=== PATIENT | male | born 1965 | race Caucasian/White ===

== ENCOUNTER 2023-09-13 16:04 | Outpatient (CLI) | payer MEDICARE, MEDICAID, SELFPAY ==
[2023-09-13 15:04] LABS: ETHANOL BLOOD < 3.0 mg/dL (<10)
--- OUTSIDE RECORDS SUMMARY | 2023-09-13 16:10 | XMS_ITS | Continuity of Care Document ---
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 Name Role Phone Marcelo Brar Primary Care Physician Encounter [facility] Date(s): 06/21/23 - 06/21/[address] [phone] Discharge Disposition: Home or Self Care Attending Physician: Marcelo Brar MD Admitting Physician: Marcelo Brar MD Referring Physician: Marcelo Brar MD Allergies, Adverse Reactions, Alerts No Known Allergies Assessment and Plan Future Scheduled Tests Laboratory* Hemoglobin A1c 06/28/22 Immunizations Given and Recorded Vaccine Date Status Refusal Reason tetanus-diphth toxoids (Td) adult/adol 1 06/22/21 Recorded tetanus-diphth toxoids (Td) adult/adol 02/23/02 Re corded influenza virus vaccine, live 2 03/24/20 Recorded influenza virus vaccine, live 01/03/17 Recorded influenza virus vaccine, inactivated 01/05/16 Chris rded influenza virus vaccine, inactivated 02/16/15 Chris rded influenza virus vaccine, inactivated 01/26/14 Chris rded influenza virus vaccine, inactivated 12/11/11 Chris rded influenza virus vaccine, inactivated 11/10/10 Chris rded influenza virus vaccine, inactivated 05/04/10 Hcris rded influenza virus vaccine, inactivated 04/20/09 Chris rded pneumococcal 23-polyvalent vaccine 02/16/15 Record ed tetanus/diphth/pertuss (Tdap) adult/adol 11/10/10 Recorded Novel [id number], all formulation 04/20/09 Recorded 1Result Comment: tolerated well 2Result Comment: pt tolerated well Medications Albuterol (Eqv-ProAir HFA) 90 mcg/inh inhalation aerosol 2 puffs, Inhale, every 4 hr, PRN other (see comment), as needed Start Date: 09/01/21 Status: Ordered ARIPiprazole 10 mg oral tablet 10 mg = 1 tab, Oral, Daily, for 28 days Start Date: 08/30/21 Status: Ordered aspirin 81 mg oral tablet, chewable 1 tab, Oral, Daily, # 90 tab, 3 Refill(s), Pharmacy: [facility], 170, cm, 10/06/22 2:21:00 EDT, Height/Length Dosing, 116.2, kg, 10/06/22 2:21:00 EDT, Weight Dosing Start Date: 02/13/23 Status: Ordered busPIRone 15 mg oral tablet 15 mg = 1 tab, Oral, Daily, for 28 days Start Date: 08/30/21 Status: Ordered compression socks compression socks, To be worn daily for edema, Supply, See instructions, # 1 EA, 0 Refill(s) Start Date: 10/18/21 Status: Ordered Compression stockings Compression stockings, use stockings bilaterally daily, Supply, See instructions, # 1 EA, 0 Refill(s), Pharmacy: [facility] Start Date: 10/18/21 Status: Ordered Diabetic shoes Diabetic shoes, Patient needs to be fitted and have diabetic shoes ordered, Supply, See instructions, # 1 EA, 0 Refill(s) Start Date: 11/11/21 Status: Ordered Farxiga 5 mg oral tablet 1 tab, Oral, Daily, # 28 tab, 3 Refill(s), Pharmacy: [facility] [id number], 170, cm, 10/06/22 2:21:00 EDT, Height/Length Dosing, 116.2, kg, 10/06/22 2:21:00 EDT, Weight Dosing Start Date: 04/02/23 Status: Ordered fluticasone 50 mcg/inh nasal spray 2 sprays, Nasal, every morning, # 16 g, 5 Refill(s), Pharmacy: [facility], 170, cm, 08/22/21 15:48:00 EDT, Height/Length Dosing, 118, kg, 08/22/21 15:48:00 EDT, Weight Dosing Start Date: 09/09/21 Status: Ordered furosemide 40 mg oral tablet 80 mg = 2 tab, Oral, every morning, # 180 tab, 3 Refill(s), Pharmacy: [facility], 170, cm, 10/06/22 2:21:00 EDT, Height/Length Dosing, 116.2, kg, 10/06/22 2:21:00 EDT, Weight Dosing Start Date: 04/02/23 Status: Ordered Glucometer Glucometer, test sugars up to three times daily. E11.9 What insurance will cover, Supply, See instructions, # 1 EA, 0 Refill(s), Pharmacy: [facility] Start Date: 04/27/22 Status: Ordered glucomter glucomter, E11.9 uncontrolled. check BS once per day, Supply, See instructions, # 1 EA, 0 Refill(s), Pharmacy: [facility] Start Date: 04/26/22 Status: Ordered insulin glargine 100 units/mL subcutaneous solution See Instructions, Take 90 units daily subcu as directed for 30 days., # 30 mL, 11 Refill(s), [facility], 170, cm, 10/06/22 2:21:00 EDT, Height/Length Dosing, 116.2, kg, 10/06/22 2:21:00 EDT, Weight Dosing Start Date: 05/11/23 Status: Ordered Lancets Lancets, E11.9 Once per day, Supply, See instructions, # 100 EA, 3 Refill(s), Pharmacy: [facility] Start Date: 04/27/22 Status: Ordered Lantus 100 units/mL subcutaneous solution 30 vials, 0 Refill(s), 0 Refill(s) Start Date: 06/20/23 Status: Ordered Levemir 100 units/mL subcutaneous solution 90 units =, Subcutaneous, Daily, # 30 mL, 0 Refill(s), [facility] 170, cm, 10/06/22 2:21:00 EDT, Height/Length Dosing, 116.2, kg, 10/06/22 2:21:00 EDT, Weight Dosing Start Date: 05/06/23 Status: Ordered losartan 50 mg oral tablet 50 mg = 1 tab, Oral, Daily, for 90 days, # 90 tab, 4 Refill(s), Pharmacy: [facility],170, cm, 10/06/22 2:21:00 EDT, Height/Length Dosing, 116.2, kg, 10/06/22 2:21:00 EDT, Weight Dosing Start Date: 02/06/23 Status: Ordered metFORMIN 1000 mg oral tablet 1,000 mg = 1 tab, Oral, BID, # 180 tab, 3 Refill(s), Pharmacy: [facility], 170, cm, 10/06/22 2:21:00 EDT, Height/Length Dosing, 116.2, kg, 10/06/22 2:21:00 EDT, Weight Dosing Start Date: 04/02/23 Status: Ordered ohm Allergy Relief 10 mg oral tablet 1 tab, Oral, Daily, # 28 tab, 3 Refill(s), Pharmacy: [facility] [address], 170, cm, 08/22/21 15:48:00 EDT, Height/Length Dosing, 118, kg, 08/22/21 15:48:00 EDT, Weight Dosing Start Date: 07/25/22 Status: Ordered OPTICHAMBER MIS TOMAS OPTICHAMBER MIS TOMAS Start Date: 09/01/21 Status: Ordered pen needles 32G 4mm pen needles 32G 4mm, Use with insulin pen daily, Supply, See instructions, # 1 EA, 4 Refill(s), Pharmacy: [facility] Start Date: 05/14/23 Status: Ordered Request diabetic shoes from [employer] Request diabetic shoes from [employer], Please eval and Tx: 57 y.o. man. Request diabetic shoes. Hx poor control T2DM. A1c 11.6 on 04/04/2022. Venous stasis ulcer inf to med [facility]at[facility] Onychomycosis all toenails. Loss protective sensation w/monofilament test., Supply, See instructions, # 1 EA, 0 Refill(s) Start Date: 11/16/22 Status: Ordered Request knee high compressions stockings 30-40 mmHg from [employer]. Request knee high compressions stockings 30-40 mmHg from [employer] Please eval and Tx: 57 y.o. man. Request knee high compression stockings 30-40 mmHg. Hx poor control T2DM. A1c 11.6 on 04/04/2022. Venous stasis ulcer inf to med malleolus bilat. PT consult at [facility] 11/20 Onychomycosis all toenails. Lossprotective sensation w/monofilament test., Supply, See instructions, # 1 EA, 0 Refill(s) Start Date: 11/16/22 Status: Ordered Test strips Test strips, to go with glucometer E11.9 pt tetsts once daily, Supply, See instructions, # 100 EA, 3 Refill(s), Pharmacy: [facility] Start Date: 04/27/22 Status: Ordered Trulicity Pen 1.5 mg/0.5 mL subcutaneous solution 1.5 mg = 0.5 mL, Subcutaneous, every week Start Date: 08/30/21 Status: Ordered ULTICARE INSULIN SYRINGE/ 1ML/30G SYN ULTICARE INSULIN SYRINGE/ 1ML/30G SYN Start Date: 08/30/21 Status: Ordered UtiCare Insulin Syringe 30GX5/15 1ML U[employer]Care Insulin Syringe 30GX5/15 1ML, See Instructions, use 1x daily, # 100 EA, 3 Refill(s), Pharmacy: [facility], dx E11.9, 170, cm, 08/22/21 15:48:00 EDT, Height/Length Dosing, 118, kg, 08/22/21 15:48:00 EDT, Weight Dosing Start Date: 05/22/22 Status: Ordered Problem List Condition Confirmation Course Effective Dates Status H ealth Status Informant Foot abscess Confirmed Active Alcohol abuse Confirmed Active Allergic rhinitis Confirmed Active Venous stasis ulcer of right ankle Confirmed Active Venous stasis ulcer of left ankle Confirmed Active Arteritis Confirmed Active Dystrophic nail Confirmed Active Generalized anxiety disorder Confirmed Active Hypertensive disorder Confirmed Active 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 Localized edema Confirmed Active 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 Nicotine dependence Confirmed Active Onychomycosis of multiple toenails with type 2 diabetes mellitus Confirmed Active Right arm pain Confirmed Active Puncture wound of skin Confirmed Active Right upper quadrant pain Confirmed Active Schizophrenia Confirmed Active Severe obesity Confirmed Active Tinea pedis Confirmed Active Diabetes mellitus, type II uncontrolled Confirmed Active non-pressure ulcer lower limb Confirmed Active Venous stasis Confirmed Active Results Laboratory List Name Date CBC w/ Diff 06/21/23 Comprehensive Metabolic Panel (CMP) 06/20 Hemoglobin A1c 06/21/23 Lipid Panel 06/21/23 .Morphology ([facility]) 06/21/23 Automated Diff 06/21/23 Most recent to oldest [Reference Range]: 1 WBC [5.0-10.0 x10^3/mcL] 8.6 x10^3/mcL (06/21/23 10:24 AM) RBC [4.6-6.0 x10^6/mcL] 4.9 x10^6/mcL (06/21/23 10:24 AM) Neutro Auto [40.0-75.0 %] 64.1 % (06/21/23 10:24 AM) Lymph Auto [20.0-50.0 %] 18.0 % *LOW* (06/21/23: AM) Twiggs Auto [2.0-15.0 %] 12.5 % (06/21/23 10:24 AM) Basophil Auto [0.0-1.0 %] 0.8 % (06/21/23 10:24 AM) BUN [7-18 mg/dL] 14 mg/dL (06/21/23 10:24 AM) Cholesterol Total [50-200 mg/dL] 144 mg/ dL (06/21/23 10:24 AM) LDL [0-130 mg/dL] 77 mg/dL (06/21/23 10:24 AM) Glucose Level [74-106 mg/dL] 124 mg/dL *HI* (06/21/23 10:24 AM) Potassium Level [3.5-5.1 mmol/L] 3.8 mmo l/L (06/21/23 10:24 AM) MCV [80.0-96.0 fL] 73.1 fL *LOW* (06/21/23 10:24 AM) RBC Morph Abnormal (06/21/23 10:24 AM) HDL [40-60 mg/dL] 52 mg/dL (06/21/23 10:24 AM) AST [15-37 unit/L] 14 unit/L *LOW* (06/21/23 10:24 AM) ALT [16-63 unit/L] 23 unit/L (06/21/23 10:24 AM) MCHC [31.0-35.0 g/dL] 28.8 g/dL *LOW* (06/21/23 10:24 AM) Sodium Level [136-145 mmol/L] 138 mmol/L (06/21/23 10:24 AM) Hct [41.0-51.0 %] 36.1 % *LOW* (06/21/23 10:24 AM) Microcyte Small (06/21/23 10:24 AM) Hypochromia Small (06/21/23 10:24 AM) Triglycerides [0-150 mg/dL] 76 mg/dL (06/21/23 10:24 AM) Calcium Level [8.5-10.1 mg/dL] 8.9 mg/dL (06/21/23 10:24 AM) Albumin Level [3.4-5.0 g/dL] 3.4 g/dL (06/21/23 10:24 AM) Protein Total [6.4-8.2 g/dL] 7.2 g/dL (06/21/23 10:24 AM) MCH [26.0-32.0 pg] 21.1 pg *LOW* (06/21/23 10:24 AM) Neutro Absolute 5.5 x10^3/mcL *NA* (06/21/23 10:24 AM) Bilirubin Total [0.2-1.0 mg/dL] 0.3 mg/d L (06/21/23 10:24 AM) Hgb [14.0-18.0 g/dL] 10.4 g/dL *LOW* (06/21/23 10:24 AM) Alk Phos [46-146 unit/L] 91 unit/L (06/21/23 10:24 AM) Platelets [130-450 x10^3/mcL] 321 x10^3/ mcL (06/21/23 10:24 AM) CO2 [21-32 mmol/L] 30 mmol/L (06/21/23 10:24 AM) eGFR Non-AA [>=60] 100 (06/21/23 10:24 AM) eGFR AA [>=60] 100 (06/21/23 10:24 AM) Hemoglobin A1c [4.0-5.6 %] 7.6 % 1 *HI* (06/21/23 10:24 AM) Chloride Level [98-107 mmol/L] 101 mmol/ L (06/21/23 10:24 AM) RDW-CV [11.5-14.5 %] 16.9 % *HI* (06/21/23 10:24 AM) Imm Gran Auto [0.0-0.9 %] 0.5 % (06/21/23 10:24 AM) Slide Review Morph Only (06/21/23 10:24 AM) Anisocyte Small (06/21/23 10:24 AM) Creatinine Level [0.70-1.30 mg/dL] 0.85 mg/dL (06/21/23 10:24 AM) Eos, Auto [1.0-6.0 %] 4.1 % (06/21/23 10:24 AM) 1Interpretive Data: New test method effective 04-24-23. Establishment of new HA1c baseline is recommended. The following A1c interpretive data reflect the 2017 [place] [employer] (ADA) guidelinesand will be reported with each A1c result: Normal: <5.7% Prediabetes: 5.7 - 6.4% Diagnostic for diabetes (if confirmed): ???6.5% Social History Social History Type Response Tobacco Current everyday tob acco user Tobacco Use:. 1.5 packs a day per day. Sex Male Patient Care team information Care Team Personnel Name: Marcelo Brar MD Position: Physician Member Role: Primary Care Physician Address: Address: [address] [place] [address] [place], [place] [address] Name: [facility] Position: PowerChart View Only Member Role: Informed Provider Address: Address: [place] [facility] [address] [address] [place] Care Team Related Persons Name: ESTELA DIXON
--- OUTSIDE RECORDS SUMMARY | 2023-09-13 16:10 | XMS_ITS | Continuity of Care Document ---
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 Clarifier Operator Helper Name Role Phone Roc Porter Primary Care Physician Encounter [facility] Date(s): 11/16/22 - 11/16/[address] [address] Discharge Disposition: Home or Self Care Attending Physician: Roc Porter PA-C Admitting Physician: Roc Porter PA-C Referring Physician: Roc Porter PA-C Allergies, Adverse Reactions, Alerts No Known Allergies Assessment and Plan Future Appointments Future Scheduled Tests Laboratory* Hemoglobin A1c 11/23/21 * Hemoglobin A1c 06/28/22 Immunizations Given and Recorded [...] Chris rded influenza virus vaccine, inactivated 05/04/10 Chris rded influenza virus vaccine, inactivated 04/20/09 Chris rded pneumococcal 23-polyvalent vaccine 02/16/15 Record ed tetanus/diphth/pertuss (Tdap) adult/adol 11/10/10 Recorded Novel [id number], all formulation 04/20/09 Recorded 1Result Comment: tolerated [...] tablet, chewable 1 tab, Oral, Daily, # 28 EA, 11 Refill(s), Pharmacy: [facility] [address], 170, cm, 10/06/22 2:21:00 EDT, Height/Length Dosing, 116.2, kg, 10/06/22 2:21:00 EDT, Weight Dosing Start Date: 10/17/22 Status: Ordered busPIRone 15 mg oral tablet 15 mg = 1 tab, Oral, Daily, for 28 days Start Date: 08/30/21 Status: Ordered compression socks compression socks, To be worn daily for edema, Supply, See instructions, # 1 EA, 0 Refill(s) Start Date: 10/18/21 Status: Ordered Compression stockings Compression stockings, use stockings bilaterally daily, Supply, See instructions, # 1 EA, 0 Refill(s), Pharmacy: [facility] Start Date: 10/18/21 Status: Ordered Diabetic shoes Diabetic shoes, Patient needs to be fitted and have diabetic shoes ordered, Supply, See instructions, # 1 EA, 0 Refill(s) Start Date: 11/11/21 Status: Ordered Farxiga 5 mg oral tablet 5 mg = 1 tab, Oral, Daily, May substitute per formulary, # 90 tab, 2 Refill(s), Pharmacy: [facility], 170, cm, 08/22/21 15:48:00 EDT, Height/Length Dosing, 118, kg, 08/22/21 15:48:00 EDT, Weight Dosing Start Date: 04/26/22 Status: Ordered fluticasone 50 mcg/inh nasal spray 2 sprays, Nasal, every morning, # 16 g, 5 Refill(s), Pharmacy: [facility], 170, cm, 08/22/21 15:48:00 EDT, Height/Length Dosing, 118, kg, 08/22/21 15:48:00 EDT, Weight Dosing Start Date: 09/09/21 Status: Ordered furosemide 40 mg oral tablet 80 mg = 2 tab, Oral, every morning, # 180 tab, 3 Refill(s), Pharmacy: [facility], 170, cm, 08/22/21 15:48:00 EDT, Height/Length Dosing, 118, kg, 08/22/21 15:48:00 EDT, Weight Dosing Start Date: 05/04/22 Status: Ordered Glucometer Glucometer, test sugars up to three times daily. E11.9 What insurance will cover, Supply, See instructions, # 1 EA, 0 Refill(s), Pharmacy: [id number] Start Date: 04/27/22 Status: Ordered glucomter glucomter, E11.9 uncontrolled. check BS once per day, Supply, See instructions, # 1 EA, 0 Refill(s), Pharmacy: [facility] Start Date: 04/26/22 Status: Ordered Lancets Lancets, E11.9 Once per day, Supply, See instructions, # 100 EA, 3 Refill(s), Pharmacy: [id number] Start Date: 04/27/22 Status: Ordered Levemir 100 units/mL subcutaneous solution 90 units =, Subcutaneous, Daily, # 30 mL, 3 Refill(s), Pharmacy: [id number], 170, cm, 08/22/21 15:48:00 EDT, Height/Length Dosing, 118, kg, 08/22/21 15:48:00 EDT, Weight Dosing Start Date: 06/09/22 Status: Ordered losartan 50 mg oral tablet 50 mg = 1 tab, Oral, Daily, for 90 days, # 90 tab, 4 Refill(s), Pharmacy: [facility], cm, 08/22/21 15:48:00 EDT, Height/Length Dosing, 118, kg, 08/22/21 15:48:00 EDT, Weight Dosing Start Date: 01/19/22 Status: Ordered metFORMIN 1000 mg oral tablet 1,000 mg = 1 tab, Oral, BID, # 180 tab, 3 Refill(s), Pharmacy: [facility], 170, cm, 08/22/21 15:48:00 EDT, Height/Length Dosing, 118, kg, 08/22/21 15:48:00 EDT, Weight Dosing Start Date: 05/04/22 Status: Ordered ohm Allergy Relief 10 mg oral tablet 1 tab, Oral, Daily, # 28 tab, 3 Refill(s), Pharmacy: [facility] 170, cm, 08/22/21 15:48:00 EDT, Height/Length Dosing, 118, kg, 08/22/21 15:48:00 EDT, Weight Dosing Start Date: 07/25/22 Status: Ordered OPTICHAMBER MIS TOMAS OPTICHAMBER MIS TOMAS Start Date: 09/01/21 Status: Ordered Request diabetic shoes from [employer] Request diabetic shoes from [employer], Please eval and Tx: 57 y.o. man. Request diabetic shoes. Hx poor control T2DM. A1c 11.6 on 04/04/2022. Venous stasis ulcer inf to [facility] Onychomycosis all toenails. Loss protective sensation w/monofilament test., Supply, See instructions, # 1 EA, 0 Refill(s) Start Date: 11/16/22 Status: Ordered Request knee high compressions stockings 30-40 mmHg from [employer]. Request knee high compressions stockings 30-40 mmHg from [employer] Please eval and Tx: 57 y.o. man. Request knee high compression stockings 30-40 mmHg. Hx poor control T2DM. A1c 11.6 on 04/04/2022. Venous stasis ulcer inf to med malleolus bilat. [facility] Onychomycosis all toenails. Lossprotective sensation w/monofilament test., Supply, See instructions, # 1 EA, 0 Refill(s) Start Date: 11/16/22 Status: Ordered Test strips Test strips, to go with glucometer E11.9 pt tetsts once daily, Supply, See instructions, # 100 EA, 3 Refill(s), Pharmacy: [id number] Start Date: 04/27/22 Status: Ordered Trulicity Pen 1.5 mg/0.5 mL subcutaneous solution 1.5 mg = 0.5 mL, Subcutaneous, every week Start Date: 08/30/21 Status: Ordered ULTICARE INSULIN SYRINGE/ 1ML/30G SYN ULTICARE INSULIN SYRINGE/ 1ML/30G SYN Start Date: 08/30/21 Status: Ordered [employer]Care Insulin Syringe 30GX5/15 1ML [employer] Insulin Syringe 30GX5/15 1ML, See Instructions, use 1x daily, # 100 EA, 3 Refill(s), Pharmacy: [facility], dx E11.9, 170, cm, 08/22/21 15:48:00 EDT, [...] left ankle Confirmed Active Arteritis Confirmed Active Generalized anxiety disorder Confirmed Active [...] Active non-pressure ulcer lower limb Confirmed Active Social History Social History Type Response Tobacco Current everyday tob acco user Tobacco Use:. 1.5 packs a day per day. Sex Male Patient Care team information Care Team Personnel Name: Rafal Alvarez DO Position: Physician Member Role: Informed Provider Address: Address: [place] [facility] [address] Name: Roc Porter PA-C Position: Physician Member Role: Primary Care Physician Address: Address: [address] [place] [id number] Care Team Related Persons Name: ESTELA DIXON Address: Home
--- OUTSIDE RECORDS SUMMARY | 2023-09-13 16:11 | XMS_ITS ---
Author Name Unknown Address [address] [place] [phone] Phone Organization Unknown Address [address] [place] [phone] Phone Care Team Providers Care Instructor Kindergarten Name Role Phone AMAYA Keen Attending Unavailable ROSE Tesfaye Primary Unavailable Social History Type Status Start Date End Date Code Code Syst em Sex Male Hospital Discharge Instructions Should you have any questions prior to discharge, please contact a member of your healthcare team. If you have left the hospital and have any questions, please contact your primary care physician. Reason For Referral No Data Found Plan of Treatment No Data Found Encounters Encounter Diagnosis Start Date Code Code Sys tem 08/21/2023 [id number] SNOMED-CT Personal Care Team Section Performer Name Performer Role Active Date Inactive Da kinza
--- OUTSIDE RECORDS SUMMARY | 2023-09-13 16:11 | XMS_ITS ---
Author Name Unknown Address [address] [place] [phone] Phone Organization Unknown Address [address] [place] [phone] Phone Care Team Providers Care Web Producer Name Role Phone AMAYA Keen Attending Unavailable ROSE Tesfaye Primary Unavailable Results XR FOOT 3V LT* - Completed: 09/04/2023 11:21 LOINC: [place], [place] [address] [facility] PACS EXTENSION EDGER REPORT Patient Name: SHIRA REGALADO MRN: Sex: : Age: [id number] M [id number] Account: Accession: Admit: StayType: [id number] 09/04/2023 O Ordered: Order ID: Submitted: Ordering Provider: 09/04/2023 10:56 [id number] JOSELYN LYNCH Completed: Technologist: Resulted: 09/04/2023 11:13 SALLY 09/04/2023 19:10 FINAL REPORT EXAM: XR FOOT 3V LT* CLINICAL HISTORY: Reason for Extrem: Pain. TECHNIQUE: 2D digital imaging was performed. COMPARISON: No exams were available for comparison FINDINGS: 3 views No evidence of acute fracture or diastasis of the Lisfranc joint. Bone density normal. No osseous lesions. No erosions. Great toe metatarsophalangeal joint appears unremarkable. There is a small inferior calcaneal spur. Also small enthesophyte of the posterior calcaneus Achilles insertion. IMPRESSION: As above. DATA REPOSITORY: RADIATION DOSE DELIVERED: Electronically signed by: Deric Freitas Dictated: 09/04/2023 19:10 Social History Type Status Start Date End Date Code Code Syst em Sex Male Hospital Discharge Instructions Should you have any questions prior to discharge, please contact a member of your healthcare team. If you have left the hospital and have any questions, please contact your primary care physician. Reason For Referral No Data Found Plan of Treatment No Data Found Personal Care Team Section Performer Name Performer Role Active Date Inactive Da te
--- OUTSIDE RECORDS SUMMARY | 2023-09-13 16:11 | XMS_ITS | Continuity of Care Document ---
Author Name Unknown Organization [facility] Address [address] [place] [address] Care Team Providers Care Varying Exceptionalities Teacher Name Role Phone Marcelo Brar Primary Care Physician Encounter [facility] Date(s): 08/06/23 - 08/06/[address] [id number] Discharge Disposition: Home or Self Care Attending Physician: Calvin Mayfield DO Admitting Physician: Calvin Mayfield DO Allergies, Adverse Reactions, Alerts No Known Allergies Assessment and Plan Future Scheduled Tests Laboratory* Transferrin Serum [facility] 06/26/23 * Transferrin Serum [facility] 06/26/23 * Ferritin 06/26/23 * Ferritin 06/26/23 * Reticulocyte Count Automated 06/26/23 * Reticulocyte Count Automated 06/26/23 * Iron Level and TIBC 06/26/23 * Iron Level and TIBC 06/26/23 Immunizations Given and Recorded Vaccine Date Status [...] ed tetanus/diphth/pertuss (Tdap) adult/adol 11/10/10 Recorded Novel [id number], all formulation 04/20/09 Recorded 1Result Comment: tolerated [...] Daily, # 90 tab, 3 Refill(s), Pharmacy: [facility], 170, cm, 10/06/22 2:21:00 EDT, Height/Length Dosing, [...] instructions, # 1 EA, 0 Refill(s), Pharmacy: [facility] Start Date: 10/18/21 Status: Ordered Diabetic shoes Diabetic shoes, Patient needs to be fitted and have diabetic shoes ordered, Supply, See instructions, # 1 EA, 0 Refill(s) Start Date: 11/11/21 Status: Ordered Farxiga 5 mg oral tablet 1 tab, Oral, Daily, # 28 tab, 3 Refill(s), Pharmacy: [id number], 170, cm, 10/06/22 2:21:00 EDT, Height/Length Dosing, 112, kg, 06/20/23 13:51:00 EDT, Weight Dosing Start Date: 07/20/23 Status: Ordered fluticasone 50 mcg/inh nasal spray 2 sprays, Nasal, every morning, # 16 g, 5 Refill(s), Pharmacy: [facility], 170, cm, 08/22/21 15:48:00 EDT, Height/Length Dosing, 118, kg, 08/22/21 15:48:00 EDT, Weight Dosing Start Date: 09/09/21 Status: Ordered furosemide 40 mg oral tablet 80 mg = 2 tab, Oral, every morning, # 180 tab, 3 Refill(s), Pharmacy: [facility], 170, cm, 10/06/22 2:21:00 EDT, Height/Length Dosing, 116.2, kg, 10/06/22 2:21:00 EDT, Weight Dosing Start Date: 04/02/23 Status: Ordered Glucometer Glucometer, test sugars up to three times daily. E11.9 What insurance will cover, Supply, See instructions, # 1 EA, 0 Refill(s), Pharmacy: [facility] Start Date: 04/27/22 Status: Ordered glucomter glucomter, E11.9 uncontrolled. check BS once per day, Supply, See instructions, # 1 EA, 0 Refill(s), Pharmacy: [facility] Start Date: 04/26/22 Status: Ordered insulin glargine 100 units/mL subcutaneous solution See Instructions, Take 90 units daily subcu as directed for 30 days., # 30 mL, 11 Refill(s), Pharmacy: [facility], 170, cm, 10/06/22 2:21:00 EDT, Height/Length Dosing, 116.2, kg, 10/06/22 2:21:00 EDT, Weight Dosing Start Date: 05/11/23 Status: Ordered Lancets Lancets, E11.9 Once per day, Supply, See instructions, # 100 EA, 3 Refill(s), Pharmacy: [facility] Start Date: 04/27/22 Status: Ordered Levemir 100 units/mL subcutaneous solution 90 units =, Subcutaneous, Daily, # 30 mL, 0 Refill(s), Pharmacy: [facility] [id number], 170, cm, 10/06/22 2:21:00 EDT, Height/Length Dosing, 116.2, kg, 10/06/22 2:21:00 EDT, Weight Dosing Start Date: 05/06/23 Status: Ordered losartan 50 mg oral tablet 50 mg = 1 tab, Oral, Daily, for 90 days, # 90 tab, 4 Refill(s), Pharmacy: [facility],170, cm, 10/06/22 2:21:00 EDT, Height/Length Dosing, 116.2, kg, 10/06/22 2:21:00 EDT, Weight Dosing Start Date: 02/06/23 Status: Ordered metFORMIN 1000 mg oral tablet 1,000 mg = 1 tab, Oral, BID, # 180 tab, 3 Refill(s), Pharmacy: [facility], 170, cm, 10/06/22 2:21:00 EDT, Height/Length Dosing, 116.2, kg, 10/06/22 2:21:00 EDT, Weight Dosing Start Date: 04/02/23 Status: Ordered OPTICHAMBER MIS TOMAS OPTICHAMBER MIS TOMAS Start Date: 09/01/21 Status: Ordered pen needles 32G 4mm pen needles 32G 4mm, Use with insulin pen daily, Supply, See instructions, # 1 EA, 4 Refill(s), Pharmacy: [facility] Start Date: 05/14/23 Status: Ordered Request diabetic shoes from [employer] Request diabetic shoes from [employer], Please eval and Tx: 57 y.o. man. Request diabetic shoes. Hx poor control T2DM. A1c 11.6 on 04/04/2022. Venous stasis ulcer inf to [facility] Onych[facility] all toenails. Loss protective [...] to med malleolus bilat. [facility] Onychomycosis all toenails. Lossprotective sensation w/monofilament test., Supply, See instructions, # 1 EA, 0 Refill(s) Start Date: 11/16/22 Status: Ordered Test strips Test strips, to go with glucometer E11.9 pt tetsts once daily, Supply, See instructions, # 100 EA, 3 Refill(s), Pharmacy: [facility] Start Date: 04/27/22 Status: Ordered ULTICARE INSULIN SYRINGE/ 1ML/30G SYN ULTICARE INSULIN SYRINGE/ 1ML/30G SYN Start Date: 08/30/21 Status: Ordered UtiCare Insulin Syringe 30GX5/15 1ML UtiCare Insulin Syringe 30GX5/15 1ML, See Instructions, use 1x daily, # 100 EA, 3 Refill(s), Pharmacy: [facility], E11.9, 170, cm, 08/22/21 15:48:00 EDT, Height/Length Dosing, 118, kg, 08/22/21 15:48:00 EDT, Weight Dosing Start Date: 05/22/22 Status: Ordered Problem List Condition Confirmation Course Effective Dates Status H ealth Status Informant Foot abscess Confirmed Active Alcohol use disorder Confirmed Active Allergic rhinitis Confirmed Active Anemia Confirmed Active Generalized anxiety disorder Confirmed Active Hypertensive disorder Confirmed Active Localized edema Confirmed Active 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 1.5 packs a day per day. Sex Male Patient Care team information Care Team Personnel Name: Marcelo Brar MD Position: Physician Member Role: Primary Care Physician Address: Address: [address] [place] [address] [place] [address]- [facility] Position: PowerChart View Only Member Role: Informed Provider Address: Address: [place] [facility] [address] [address]- Care Team Related Persons Name: ESTELA DIXON
--- OUTSIDE RECORDS SUMMARY | 2023-09-13 16:11 | XMS_ITS | Continuity of Care Document ---
Author Name Unknown Organization [facility] Address [address] [place] [address] Care Team Providers Care Strategic Partnership Specialist Name Role Phone Roc Porter Primary Care Physician Encounter [place] Date(s): 11/16/22 - 11/16/[address] [address] Encounter Diagnosis Nicotine dependence(Discharge Diagnosis) - 11/16/22 Hypertensive disorder(Discharge Diagnosis) - 11/16/22 Diabetes mellitus, type II uncontrolled(Discharge Diagnosis) - 11/16/22 Prostate cancer screening(Discharge Diagnosis) - 11/16/22 Discharge Disposition: Home or Self Care Attending [...] ed tetanus/diphth/pertuss (Tdap) adult/adol 11/10/10 Recorded Novel [id number], all formulation 04/20/09 Recorded 1Result Comment: tolerated [...] Daily, # 28 EA, 11 Refill(s), Pharmacy: [facility] [id number], 170, cm, 10/06/22 2:21:00 EDT, Height/Length Dosing, [...] instructions, # 1 EA, 0 Refill(s), Pharmacy: [facility] Start Date: 10/18/21 Status: Ordered Diabetic shoes Diabetic shoes, Patient needs to be fitted and have diabetic shoes ordered, Supply, See instructions, # 1 EA, 0 Refill(s) Start Date: 11/11/21 Status: Ordered Farxiga 5 mg oral tablet 5 mg = 1 tab, Oral, Daily, May substitute per formulary, # 90 tab, 2 Refill(s), Pharmacy: [facility], 170, cm, 08/22/21 15:48:00 EDT, Height/Length Dosing, 118, kg, 08/22/21 15:48:00 EDT, Weight Dosing Start Date: 04/26/22 Status: Ordered fluticasone 50 mcg/inh nasal spray 2 sprays, Nasal, every morning, # 16 g, 5 Refill(s), Pharmacy: [facility], 170, cm, 08/22/21 15:48:00 EDT, Height/Length Dosing, 118, kg, 08/22/21 15:48:00 EDT, Weight Dosing Start Date: 09/09/21 Status: Ordered furosemide 40 mg oral tablet 80 mg = 2 tab, Oral, every morning, # 180 tab, 3 Refill(s), Pharmacy: [facility], 170, cm, 08/22/21 15:48:00 EDT, Height/Length Dosing, 118, kg, 08/22/21 15:48:00 EDT, Weight Dosing Start Date: 05/04/22 Status: Ordered Glucometer Glucometer, test sugars up to three times daily. E11.9 What insurance will cover, Supply, See instructions, # 1 EA, 0 Refill(s), Pharmacy: [facility] Start Date: 04/27/22 Status: Ordered glucomter glucomter, E11.9 uncontrolled. check BS once per day, Supply, See instructions, # 1 EA, 0 Refill(s), Pharmacy: [facility] Start Date: 04/26/22 Status: Ordered Lancets Lancets, E11.9 Once per day, Supply, See instructions, # 100 EA, 3 Refill(s), Pharmacy: [facility] Start Date: 04/27/22 Status: Ordered Levemir 100 units/mL subcutaneous solution 90 units =, Subcutaneous, Daily, # 30 mL, 3 Refill(s), [facility], [facility], cm, 08/22/21 15:48:00 EDT, Height/Length Dosing, 118, kg, 08/22/21 15:48:00 EDT, Weight Dosing Start Date: 06/09/22 Status: Ordered losartan 50 mg oral tablet 50 mg = 1 tab, Oral, Daily, for 90 days, # 90 tab, 4 Refill(s), Pharmacy: [facility],170, cm, 08/22/21 15:48:00 EDT, Height/Length Dosing, 118, kg, 08/22/21 15:48:00 EDT, Weight Dosing Start Date: 01/19/22 Status: Ordered metFORMIN 1000 mg oral tablet 1,000 mg = 1 tab, Oral, BID, # 180 tab, 3 Refill(s), Pharmacy: [facility], 170, cm, 08/22/21 15:48:00 EDT, Height/Length Dosing, 118, kg, 08/22/21 15:48:00 EDT, Weight Dosing Start Date: 05/04/22 Status: Ordered ohm Allergy Relief 10 mg oral tablet 1 tab, Oral, Daily, # 28 tab, 3 Refill(s), Pharmacy: [id number], 170, cm, 08/22/21 15:48:00 EDT, Height/Length Dosing, 118, kg, 08/22/21 15:48:00 EDT, Weight Dosing Start Date: 07/25/22 Status: Ordered OPTICHAMBER MIS TOMAS OPTICHAMBER MIS TOMAS Start Date: 09/01/21 Status: Ordered Request diabetic shoes from [employer] Request diabetic shoes from [employer], Please eval and Tx: 57 y.o. man. Request diabetic shoes. Hx poor control T2DM. A1c 11.6 on 04/04/2022. Venous stasis [facility]. Loss protective sensation [...] to med malleolus bilat. PT consult at [facility] 11/20 Onychomycosis all toenails. Lossprotective sensation w/monofilament test., Supply, See instructions, # 1 EA, 0 Refill(s) Start Date: 11/16/22 Status: Ordered Test strips Test strips, to go with glucometer E11.9 pt tetsts once daily, Supply, See instructions, # 100 EA, 3 Refill(s), Pharmacy: [facility] Start Date: 04/27/22 Status: Ordered Trulicity Pen 1.5 mg/0.5 mL subcutaneous solution 1.5 mg = 0.5 mL, Subcutaneous, every week Start Date: 08/30/21 Status: Ordered ULTICARE INSULIN SYRINGE/ 1ML/30G SYN ULTICARE INSULIN SYRINGE/ 1ML/30G SYN Start Date: 08/30/21 Status: Ordered UtiCare Insulin Syringe 30GX5/15 1ML UtiCare Insulin Syringe 30GX5/15 1ML, See Instructions, use 1x daily, # 100 EA, 3 Refill(s), Pharmacy: [facility], dx E11.9, 170, cm, 08/22/21 15:48:00 EDT, [...] Active non-pressure ulcer lower limb Confirmed Active Results Laboratory List Name Date Automated Diff 11/16/22 CBC w/ Diff 11/16/22 Comprehensive Metabolic Panel (CMP) 11/16 Hemoglobin A1c 11/16/22 Lipid Panel 11/16/22 PSA Screen 11/16/22 Urinalysis with Micro if Indicated and C ulture if Indicated 11/16/22 Most recent to oldest [Reference Range]: 1 WBC [5.0-10.0 x10^3/mcL] 9.3 x10^3/mcL (11/16/22 1:13 PM) RBC [4.6-6.0 x10^6/mcL] 5.9 x10^6/mcL (11/16/22 1:13 PM) Neutro Auto [40.0-75.0 %] 66.1 % (11/16/22 1:13 PM) Lymph Auto [20.0-50.0 %] 18.6 % *LOW* (11/16/22 1:13 PM) Holmes Auto [2.0-15.0 %] 11.2 % (11/16/22 1:13 PM) Basophil Auto [0.0-1.0 %] 0.9 % (11/16/22 1:13 PM) BUN [7-18 mg/dL] 10 mg/dL (11/16/22 1:13 PM) Cholesterol Total [50-200 mg/dL] 162 mg/ dL (11/16/22 1:13 PM) UA Color Pale Yellow (11/16/22 1:13 PM) LDL [0-130 mg/dL] 68 mg/dL (11/16/22 1:13 PM) Glucose Level [74-106 mg/dL] 215 mg/dL *HI* (11/16/22 1:13 PM) Potassium Level [3.5-5.1 mmol/L] 3.6 mmo l/L (11/16/22 1:13 PM) MCV [80.0-96.0 fL] 93.7 fL (11/16/22 1:13 PM) UA Urobilinogen Normal (11/16/22 1:13 PM) HDL [40-60 mg/dL] 43 mg/dL (11/16/22 1:13 PM) UA Bili [Negative] Negative (11/16/22 1:13 PM) UA Ketones Negative (11/16/22 1:13 PM) AST [15-37 unit/L] 15 unit/L (11/16/22 1:13 PM) ALT [16-63 unit/L] 17 unit/L (11/16/22 1:13 PM) MCHC [31.0-35.0 g/dL] 33.2 g/dL (11/16/22 1:13 PM) Sodium Level [136-145 mmol/L] 136 mmol/L (11/16/22 1:13 PM) UA Leuk Est Negative (11/16/22 1:13 PM) UA Nitrite Negative (11/16/22 1:13 PM) UA Glucose [Negative] 3+ *ABN* (11/16/22 1:13 PM) Hct [41.0-51.0 %] 55.4 % *HI* (11/16/22 1:13 PM) Triglycerides [0-150 mg/dL] 253 mg/dL *HI* (11/16/22 1:13 PM) Calcium Level [8.5-10.1 mg/dL] 8.7 mg/dL (11/16/22 1:13 PM) Albumin Level [3.4-5.0 g/dL] 3.3 g/dL *LOW* (11/16/22 1:13 PM) Protein Total [6.4-8.2 g/dL] 7.3 g/dL (11/16/22 1:13 PM) UA Protein Negative (11/16/22 1:13 PM) MCH [26.0-32.0 pg] 31.1 pg (11/16/22 1:13 PM) Neutro Absolute 6.2 x10^3/mcL *NA* (11/16/22 1:13 PM) Bilirubin Total [0.2-1.0 mg/dL] 0.5 mg/d L (11/16/22 1:13 PM) Hgb [14.0-18.0 g/dL] 18.4 g/dL *HI* (11/16/22 1:13 PM) Alk Phos [46-146 unit/L] 97 unit/L (11/16/22 1:13 PM) UA Blood Negative (11/16/22 1:13 PM) UA Spec Grav 1.010 *NA* (11/16/22 1:13 PM) Platelets [130-450 x10^3/mcL] 225 x10^3/ mcL (11/16/22 1:13 PM) CO2 [21-32 mmol/L] 28 mmol/L (11/16/22 1:13 PM) UA pH 6.5 *NA* (11/16/22 1:13 PM) eGFR Non-AA [>=60] 100 (11/16/22 1:13 PM) eGFR AA [>=60] 100 (11/16/22 1:13 PM) UA Appear Clear (11/16/22 1:13 PM) Hemoglobin A1c [4.0-6.0 %] 7.5 % *HI* (11/16/22 1:13 PM) Chloride Level [98-107 mmol/L] 101 mmol/ L (11/16/22 1:13 PM) RDW-CV [11.5-14.5 %] 12.3 % (11/16/22 1:13 PM) Imm Gran Auto [0.0-0.9 %] 0.3 % (11/16/22 1:13 PM) Slide Review Not Indicated (11/16/22 1:13 PM) Creatinine Level [0.70-1.30 mg/dL] 0.88 mg/dL (11/16/22 1:13 PM) PSA Total Screening [0.00-4.00 ng/mL] 0. 58 ng/mL 2 (11/16/22 1:13 PM) Eos, Auto [1.0-6.0 %] 2.9 % (11/16/22 1:13 PM) 2Interpretive Data: The testing method is an heterogeneous enzyme Immunoassay manufactured by [employer] and performed on the AdReadyL system. Values obtained with different assay methods or kits may be different and cannot be used interchangeably. Test results cannot be interpreted as absolute evidence for the presence or absence of malignant disease. Social History Social History Type Response Tobacco Current everyday tob acco user Tobacco Use:. 1.5 packs a day per day. Sex Male Patient Care team information Care Team Personnel Name: Rafal Alvarez DO Position: Physician Member Role: Informed Provider Address: Address: [place] [facility] [address] Name: Roc Porter PA-C Position: Physician Member Role: Primary Care Physician Address: Address: [address] [place] [id number] Care Team Related Persons Name: ESTELA DIXON Address: Home
--- OUTSIDE RECORDS SUMMARY | 2023-09-13 16:11 | XMS_ITS | Continuity of Care Document ---
Author Name Unknown Organization [facility] Address [address] [place] [address] Care Team Providers Care Emulsion Operator Name Role Phone Marcelo Brar Primary Care Physician ( [phone] Encounter [facility] Date(s): 09/07/23 - 09/07/[address] [address] Discharge Disposition: Home or Self Care Attending Physician: Cammie Lebron DPM Admitting Physician: Camime Lebron DPM Referring Physician: Cammie Lebron DPM Allergies, Adverse Reactions, Alerts No Known Allergies Assessment and Plan Future Appointments Appointment Date:09/11/2023 03:30:00 PM Scheduled Provider:Phyllis Fernandez RN Location:[facility] Medical [place] Appointment Type:Care Coord Follow-Up Telehealth 60 ([facility] Future Scheduled Tests Laboratory* Transferrin Serum [facility] 06/26/23 * Transferrin Serum [facility] 06/26/23 * Basic Metabolic Panel 08/16/23 * CBC w/ Diff 08/16/23 * Ferritin 06/26/23 * Ferritin 06/26/23 * Reticulocyte Count Automated 06/26/23 * Reticulocyte Count Automated 06/26/23 * Iron Level and TIBC 06/26/23 * Iron Level and TIBC 06/26/23 Radiology* PET CT Limited Area 08/22/23 Immunizations Given and Recorded Vaccine Date Status [...] ed tetanus/diphth/pertuss (Tdap) adult/adol 11/10/10 Recorded Novel [id number], all formulation 04/20/09 Recorded 1Result Comment: tolerated [...] Daily, # 90 tab, 3 Refill(s), Pharmacy: [facility], 170, cm, 10/06/22 2:21:00 EDT, Height/Length Dosing, 116.2, kg, 10/06/22 2:21:00 EDT, Weight Dosing Start Date: 02/13/23 Status: Ordered busPIRone 15 mg oral tablet 15 mg = 1 tab, Oral, Daily, for 28 days Start Date: 08/30/21 Status: Ordered ciprofloxacin 500 mg oral tablet 500 mg = 1 tab, Oral, every 12 hr, # 56 tab, 0 Refill(s), Pharmacy: [facility], 170, cm, 08/02/23 12:14:00 EDT, Height, 115.2, kg, 07/28/23 13:18:00 EDT, Weight Dosing Start Date: 08/09/23 Stop Date: 09/06/23 Status: Ordered compression socks compression socks, To be worn daily for edema, Supply, See instructions, # 1 EA, 0 Refill(s) Start Date: 10/18/21 Status: Ordered Compression stockings Compression stockings, use stockings bilaterally daily, Supply, See instructions, # 1 EA, 0 Refill(s), Pharmacy: [facility] Start Date: 10/18/21 Status: Ordered Diabetic shoes Diabetic shoes, Patient needs to be fitted and have diabetic shoes ordered, Supply, See instructions, # 1 EA, 0 Refill(s) Start Date: 11/11/21 Status: Ordered Farxiga 5 mg oral tablet 1 tab, Oral, Daily, # 28 tab, 3 Refill(s), Pharmacy: [facility] [id number], 170, cm, 10/06/22 2:21:00 EDT, Height/Length Dosing, 112, kg, 06/20/23 13:51:00 EDT, Weight Dosing Start Date: 07/20/23 Status: Ordered ferrous gluconate 324 mg (38 mg elemental iron) oral tablet 324 mg = 1 tab, Oral, BID, with meals, # 180 tab, 3 Refill(s), Pharmacy: [facility], 170, cm, 08/02/23 12:14:00 EDT, Height, 115.2, kg, 07/28/23 13:18:00 EDT, Weight Dosing Start Date: 08/13/23 Status: Ordered fluticasone 50 mcg/inh nasal spray 2 sprays, Nasal, every morning, # 16 g, 5 Refill(s), Pharmacy: [facility], 170, cm, 08/22/21 15:48:00 EDT, Height/Length Dosing, 118, kg, 08/22/21 15:48:00 EDT, Weight Dosing Start Date: 09/09/21 Status: Ordered furosemide 40 mg oral tablet 80 mg = 2 tab, Oral, every morning, # 180 tab, 3 Refill(s), Pharmacy: [facility], 170, cm, 10/06/22 2:21:00 EDT, Height/Length Dosing, 116.2, kg, 10/06/22 2:21:00 EDT, Weight Dosing Start Date: 04/02/23 Status: Ordered Glucometer Glucometer, test sugars up to three times daily. E11.9 What insurance will cover, Supply, See instructions, # 1 EA, 0 Refill(s), Pharmacy: [facility] Start Date: 04/27/22 Status: Ordered glucomter glucomter, E11.9 uncontrolled. check BS once per day, Supply, See instructions, # 1 EA, 0 Refill(s), Pharmacy: [facility] Start Date: 04/26/22 Status: Ordered insulin glargine 100 units/mL subcutaneous solution See Instructions, Take 60 units daily subcu as directed for 30 days. titrate as needed with pcp, # 30 mL, 11 Refill(s), Pharmacy: [facility], 170, cm, 10/06/22 2:21:00 EDT, Height/Length Dosing, 116.2, kg, 10/06/22 2:21:00 EDT, Weight Dosing Start Date: 05/11/23 Status: Ordered Lancets Lancets, E11.9 Once per day, Supply, See instructions, # 100 EA, 3 Refill(s), Pharmacy: [facility] Start Date: 04/27/22 Status: Ordered losartan 50 mg oral tablet 50 mg = 1 tab, Oral, Daily, for 90 days, # 90 tab, 4 Refill(s), Pharmacy: [facility],170, cm, 10/06/22 2:21:00 EDT, Height/Length Dosing, 116.2, kg, 10/06/22 2:21:00 EDT, Weight Dosing Start Date: 02/06/23 Status: Ordered metFORMIN 1000 mg oral tablet 1,000 mg = 1 tab, Oral, BID, # 180 tab, 3 Refill(s), Pharmacy: [facility], 170, cm, 10/06/22 2:21:00 EDT, Height/Length Dosing, 116.2, kg, 10/06/22 2:21:00 EDT, Weight Dosing Start Date: 04/02/23 Status: Ordered OPTICHAMBER MIS TOMAS OPTICHAMBER MIS TOMAS Start Date: 09/01/21 Status: Ordered pen needles 32G 4mm pen needles 32G 4mm, Use with insulin pen daily, Supply, See instructions, # 1 EA, 4 Refill(s), Pharmacy: [facility] Start Date: 05/14/23 Status: Ordered Request diabetic shoes from [employer] Request diabetic shoes from [employer], Please eval and Tx: 57 y.o. man. Request diabetic shoes. Hx poor control T2DM. A1c 11.6 on 04/04/2022. Venous stasis ulcer inf [facility] Onych[facility] all toenails. Loss protective [...] to med malleolus bilat. [facility] Onychomycosis all toenails. Lossprotective sensation w/monofilament test., Supply, See instructions, # 1 EA, 0 Refill(s) Start Date: 11/16/22 Status: Ordered Test strips Test strips, to go with glucometer E11.9 pt tetsts once daily, Supply, See instructions, # 100 EA, 3 Refill(s), Pharmacy: [facility] Start Date: 04/27/22 Status: Ordered Tylenol 325 mg oral tablet 650 mg = 2 tab, Oral, every 6 hr, PRN pain, mild, # 50 tab, 0 Refill(s), Pharmacy: [facility], 170, cm, 08/02/23 12:14:00 EDT, Height, 115.2, kg, 07/28/23 13:18:00 EDT, Weight Dosing Start Date: 08/09/23 Status: Ordered ULTICARE INSULIN SYRINGE/ 1ML/30G SYN ULTICARE INSULIN SYRINGE/ 1ML/30G SYN Start Date: 08/30/21 Status: Ordered UtiCare Insulin Syringe 30GX5/15 1ML UtiCare Insulin Syringe 30GX5/15 1ML, See Instructions, use 1x daily, # 100 EA, 3 Refill(s), Pharmacy: [facility], dx E11.9, 170, cm, 08/22/21 15:48:00 EDT, [...] foot Confirmed Active Venous stasis Confirmed Active Procedures Procedure Date Related Diagnosis Body Site Status Ileocolic anastomosis 08/05/23 Com pleted Laparoscopy, surgical, closu re of enterostomy, large or small intestine, with resection and anastomosis 08/05/23 C ompleted TAP (transversus abdominus plane) block 08/05/23 Completed Colonoscopy 1 08/01/23 Completed 11 YR FU recommended Results Laboratory List Name Date .Morphology ([facility]) 09/07/23 Automated Diff 09/07/23 Basic Metabolic Panel 09/07/23 C-Reactive Protein 09/07/23 CBC w/ Diff 09/07/23 Most recent to oldest [Reference Range]: 1 WBC [5.0-10.0 x10^3/mcL] 11.5 x10^3/mcL *HI* (09/07/23 11:38 AM) RBC [4.6-6.0 x10^6/mcL] 5.8 x10^6/mcL (09/07/23 11:38 AM) Neutro Auto [40.0-75.0 %] 67.1 % (09/07/23 11:38 AM) Lymph Auto [20.0-50.0 %] 19.1 % *LOW* (09/07/23 11:38 AM) [place] Auto [2.0-15.0 %] 8.8 % (09/07/23 11:38 AM) Basophil Auto [0.0-1.0 %] 0.6 % (09/07/23 11:38 AM) BUN [7-18 mg/dL] 12 mg/dL (09/07/23 11:38 AM) Glucose Level [74-106 mg/dL] 185 mg/dL *HI* (09/07/23 11:38 AM) Potassium Level [3.5-5.1 mmol/L] 3.6 mmo l/L (09/07/2338 AM) MCV [80.0-96.0 fL] 80.2 fL (09/07/23 AM) RBC Morph Abnormal (09/07/23 AM) CRP [<=10.0 mg/L] 16.5 mg/L *HI* (09/07/23 AM) MCHC [31.0-35.0 g/dL] 32.0 g/dL (09/07/23 AM) Sodium Level [136-145 mmol/L] 138 mmol/L (09/07/23:38 AM) Hct [41.0-51.0 %] 46.3 % (09/07/23 AM) Microcyte Small (09/07/23 AM) Hypochromia Small (09/07/23 AM) Calcium Level [8.5-10.1 mg/dL] 8.8 mg/dL (09/07/23 AM) MCH [26.0-32.0 pg] 25.6 pg *LOW* (09/07/23 AM) Neutro Absolute 7.7 x10^3/mcL *NA* (09/07/23 AM) Hgb [14.0-18.0 g/dL] 14.8 g/dL (09/07/23:38 AM) Polychrom Rare (09/07/23: AM) Platelets [130-450 x10^3/mcL] 241 x10^3/ mcL (09/07/23: AM) CO2 [21-32 mmol/L] 27 mmol/L (09/07/23:38 AM) Macrocyte Small (09/07/23:38 AM) eGFR Non-AA [>=60] 93 (09/07/23 11:38 AM) eGFR AA [>=60] 93 (09/07/23:38 AM) Chloride Level [98-107 mmol/L] 100 mmol/ L (09/07/23:38 AM) RDW-CV [11.5-14.5 %] 26.0 % *HI* (09/07/23 AM) Imm Gran Auto [0.0-0.9 %] 0.3 % (09/07/23 11:38 AM) Slide Review Morph Only (09/07/23 11:38 AM) Anisocyte Large (09/07/23 11:38 AM) Creatinine Level [0.70-1.30 mg/dL] 0.94 mg/dL (09/07/23 11:38 AM) Eos, Auto [1.0-6.0 %] 4.1 % (09/07/23 11:38 AM) Social History Social History Type Response Tobacco Current everyday tob acco user Tobacco Use:. 1.5 packs a day per day. Sex Male Patient Care team information Care Team Personnel Name: Marcelo Brar MD Position: Physician Member Role: Primary Care Physician Address: Address: [address] [place] [address] [place], [place] [address] Name[facility] Position: PowerChart View Only Member Role: Informed Provider Address: Address: [facility] [address] [address] [place] Care Team Related Persons Name: ESTELA DIXON
--- OUTSIDE RECORDS SUMMARY | 2023-09-13 16:11 | XMS_ITS | Continuity of Care Document ---
Author Name Unknown Organization [facility] Address [address] [place] [address] Care Team Providers Care Cotton Wringer Name Role Phone Marcelo Brar Primary Care Physician Encounter [facility] Date(s): 08/24/23 - 08/24/[address] [address] Discharge Disposition: Home or Self Care Attending Physician: Cammie Lebron DPM Admitting Physician: Cammie Lebron DPM Referring Physician: Cammie Lebron DPM [...] ed tetanus/diphth/pertuss (Tdap) adult/adol 11/10/10 Recorded Novel [id number], all formulation 04/20/09 Recorded 1Result Comment: tolerated [...] Daily, # 90 tab, 3 Refill(s), Pharmacy: [facility], 170, cm, 10/06/22 2:21:00 EDT, Height/Length Dosing, 116.2, kg, 10/06/22 2:21:00 EDT, Weight Dosing Start Date: 02/13/23 Status: Ordered busPIRone 15 mg oral tablet 15 mg = 1 tab, Oral, Daily, for 28 days Start Date: 08/30/21 Status: Ordered ciprofloxacin 500 mg oral tablet 500 mg = 1 tab, Oral, every 12 hr, # 56 tab, 0 Refill(s), Pharmacy: [facility], 170, cm, 08/02/23 12:14:00 EDT, Height, 115.2, kg, 07/28/23 13:18:00 EDT, Weight Dosing Start Date: 08/09/23 Stop Date: 09/06/23 Status: Ordered compression socks compression socks, To be worn daily for edema, Supply, See instructions, # 1 EA, 0 Refill(s) Start Date: 10/18/21 Status: Ordered Compression stockings Compression stockings, use stockings bilaterally daily, Supply, See instructions, # 1 EA, 0 Refill(s), Pharmacy: [facility] Start Date: 10/18/21 Status: Ordered Diabetic shoes Diabetic shoes, Patient needs to be fitted and have diabetic shoes ordered, Supply, See instructions, # 1 EA, 0 Refill(s) Start Date: 11/11/21 Status: Ordered Farxiga 5 mg oral tablet 1 tab, Oral, Daily, # 28 tab, 3 Refill(s), Pharmacy: [facility] [id number], 170, cm, 10/06/22 2:21:00 EDT, Height/Length Dosing, 112, kg, 06/20/23 13:51:00 EDT, Weight Dosing Start Date: 07/20/23 Status: Ordered ferrous gluconate 324 mg (38 mg elemental iron) oral tablet 324 mg = 1 tab, Oral, BID, with meals, # 180 tab, 3 Refill(s), Pharmacy: [facility], 170, cm, 08/02/23 12:14:00 EDT, Height, 115.2, kg, 07/28/23 13:18:00 EDT, Weight Dosing Start Date: 08/13/23 Status: Ordered fluticasone 50 mcg/inh nasal spray 2 sprays, Nasal, every morning, # 16 g, 5 Refill(s), Pharmacy: [facility], 170, cm, 08/22/21 15:48:00 EDT, Height/Length Dosing, 118, kg, 08/22/21 15:48:00 EDT, Weight Dosing Start Date: 09/09/21 Status: Ordered furosemide 40 mg oral tablet 80 mg = 2 tab, Oral, every morning, # 180 tab, 3 Refill(s), Pharmacy: [facility], 170, cm, 10/06/22 2:21:00 EDT, Height/Length Dosing, 116.2, kg, 10/06/22 2:21:00 EDT, Weight Dosing Start Date: 04/02/23 Status: Ordered Glucometer Glucometer, test sugars up to three times daily. E11.9 What insurance will cover, Supply, See instructions, # 1 EA, 0 Refill(s), Pharmacy: [facility] Start Date: 04/27/22 Status: Ordered glucomter glucomter, E11.9 uncontrolled. check BS once per day, Supply, See instructions, # 1 EA, 0 Refill(s), Pharmacy: [facility] Start Date: 04/26/22 Status: Ordered insulin glargine 100 units/mL subcutaneous solution See Instructions, Take 60 units daily subcu as directed for 30 days. titrate as needed with pcp, # 30 mL, 11 Refill(s), Pharmacy: [facility], 170, cm, 10/06/22 2:21:00 EDT, Height/Length Dosing, 116.2, kg, 10/06/22 2:21:00 EDT, Weight Dosing Start Date: 05/11/23 Status: Ordered Lancets Lancets, E11.9 Once per day, Supply, See instructions, # 100 EA, 3 Refill(s), Pharmacy: [facility] Start Date: 04/27/22 Status: Ordered losartan 50 mg oral tablet 50 mg = 1 tab, Oral, Daily, for 90 days, # 90 tab, 4 Refill(s), Pharmacy: [facility],170, cm, 10/06/22 2:21:00 EDT, Height/Length Dosing, 116.2, kg, 10/06/22 2:21:00 EDT, Weight Dosing Start Date: 02/06/23 Status: Ordered metFORMIN 1000 mg oral tablet 1,000 mg = 1 tab, Oral, BID, # 180 tab, 3 Refill(s), Pharmacy: [facility], 170, cm, 10/06/22 2:21:00 EDT, Height/Length Dosing, 116.2, kg, 10/06/22 2:21:00 EDT, Weight Dosing Start Date: 04/02/23 Status: Ordered OPTICHAMBER MIS TOMAS OPTICHAMBER MIS TOMAS Start Date: 09/01/21 Status: Ordered pen needles 32G 4mm pen needles 32G 4mm, Use with insulin pen daily, Supply, See instructions, # 1 EA, 4 Refill(s), Pharmacy: [facility] Start Date: 05/14/23 Status: Ordered Request diabetic shoes from [employer] Request diabetic shoes from [employer], Please eval and Tx: 57 y.o. man. Request diabetic shoes. Hx poor control T2DM. A1c 11.6 on 04/04/2022. Venous stasis ulcer inf [facility] all toenails. Loss protective [...] on 04/04/2022. Venous stasis ulcer inf to [facility] malleolus bilat. [facility] consult at [facility] 11/20 Onychomycosis all toenails. Lossprotective sensation w/monofilament test., Supply, See instructions, # 1 EA, 0 Refill(s) Start Date: 11/16/22 Status: Ordered Test strips Test strips, to go with glucometer E11.9 pt tetsts once daily, Supply, See instructions, # 100 EA, 3 Refill(s), Pharmacy: [facility] Start Date: 04/27/22 Status: Ordered Tylenol 325 mg oral tablet 650 mg = 2 tab, Oral, every 6 hr, PRN pain, mild, # 50 tab, 0 Refill(s), Pharmacy: [facility], 170, cm, 08/02/23 12:14:00 EDT, Height, 115.2, kg, 07/28/23 13:18:00 EDT, Weight Dosing Start Date: 08/09/23 Status: Ordered ULTICARE INSULIN SYRINGE/ 1ML/30G SYN ULTICARE INSULIN SYRINGE/ 1ML/30G SYN Start Date: 08/30/21 Status: Ordered U[employer]Care Insulin Syringe 30GX5/15 1ML [employer] Insulin Syringe 30GX5/15 1ML, See Instructions, use 1x daily, # 100 EA, 3 Refill(s), Pharmacy: [facility], dx E11.9, 170, cm, 08/22/21 15:48:00 EDT, [...] Results Laboratory List Name Date .Morphology ([facility]) 08/24/23 Automated Diff 08/24/23 Basic Metabolic Panel 08/24/23 C-Reactive Protein High Sensitivity 08/23 CBC w/ Diff 08/24/23 Most recent to oldest [Reference Range]: 1 WBC [5.0-10.0 x10^3/mcL] 9.9 x10^3/mcL (08/24/23 10:50 AM) RBC [4.6-6.0 x10^6/mcL] 5.4 x10^6/mcL (08/24/23 10:50 AM) Neutro Auto [40.0-75.0 %] 61.1 % (08/24/23 10:50 AM) Lymph Auto [20.0-50.0 %] 21.6 % (08/24/23 10:50 AM) [place] Auto [2.0-15.0 %] 8.6 % (08/24/23 10:50 AM) Basophil Auto [0.0-1.0 %] 0.9 % (08/24/23 10:50 AM) BUN [7-18 mg/dL] 12 mg/dL (08/24/23 10:50 AM) Glucose Level [74-106 mg/dL] 189 mg/dL *HI* (08/24/23 10:50 AM) Potassium Level [3.5-5.1 mmol/L] 3.6 mmo l/L (08/24/23 10:50 AM) MCV [80.0-96.0 fL] 78.9 fL *LOW* (08/24/23 10:50 AM) RBC Morph Abnormal (08/24/23 10:50 AM) MCHC [31.0-35.0 g/dL] 30.3 g/dL *LOW* (08/24/23 10:50 AM) Sodium Level [136-145 mmol/L] 135 mmol/L *LOW* (08/24/23 10:50 AM) Hct [41.0-51.0 %] 42.3 % (08/24/23 10:50 AM) Microcyte Moderate (08/24/23 10:50 AM) Hypochromia Small (08/24/23 10:50 AM) Calcium Level [8.5-10.1 mg/dL] 9.3 mg/dL (08/24/23 10:50 AM) MCH [26.0-32.0 pg] 23.9 pg *LOW* (08/24/23 10:50 AM) Neutro Absolute 6.1 x10^3/mcL *NA* (08/24/23 10:50 AM) Hgb [14.0-18.0 g/dL] 12.8 g/dL *LOW* (08/24/23 10:50 AM) Platelets [130-450 x10^3/mcL] 316 x10^3/ mcL (08/24/23 10:50 AM) CO2 [21-32 mmol/L] 24 mmol/L (08/24/23 10:50 AM) Macrocyte Small (08/24/23 10:50 AM) eGFR Non-AA [>=60] 99 (08/24/23 10:50 AM) eGFR AA [>=60] 99 (08/24/23 10:50 AM) Chloride Level [98-107 mmol/L] 100 mmol/ L (08/24/23 10:50 AM) RDW-CV [11.5-14.5 %] 26.4 % *HI* (08/24/23 10:50 AM) Ovalocytes Rare (08/24/23 10:50 AM) Imm Gran Auto [0.0-0.9 %] 0.4 % (08/24/23 10:50 AM) CRP High Sens [0.00-3.00 mg/L] 12.02 mg/ L 1 *HI* (08/24/23 10:50 AM) Slide Review Morph Only (08/24/23 10:50 AM) Anisocyte Large (08/24/23 10:50 AM) Creatinine Level [0.70-1.30 mg/dL] 0.88 mg/dL (08/24/23 10:50 AM) Plt Estimation [Adequate] Adequate (08/24/23 10:50 AM) Eos, Auto [1.0-6.0 %] 7.4 % *HI* (08/24/23 10:50 AM) 1Interpretive Data: Risk Level Age/Sex Range Units Less Risk All <1.0 mg/L Average Risk All 1.0 - 3.0 mg/L High Risk All >3.0 mg/L *Indeterminate All >10.0 mg/L *May be an indication of inflammation or infection. Social History Social History Type Response Tobacco Current everyday tob acco user Tobacco Use:. 1.5 packs a day per day. Sex Male Patient Care team information Care Team Personnel Name: Marcelo Brar MD Position: Physician Member Role: Primary Care Physician Address: Address: [address] [place] [address] [place] [address]- [facility] Position: PowerChart View Only Member Role: Informed Provider Address: Address: [facility] [address] [address] Care Team Related Persons Name: ESTELA DIXON
--- OUTSIDE RECORDS SUMMARY | 2023-09-13 16:11 | XMS_ITS | Continuity of Care Document ---
Author Name Unknown Organization [facility] Address [address] [place] [address] Care Team Providers Care Transportation Planner Name Role Phone Rafal Alvarez Primary Care Physician Encounter [id number] Date(s): 04/04/22 - 04/04/[address] [id number] Encounter Diagnosis Diabetes mellitus, type II uncontrolled(Discharge Diagnosis) - 04/04/22 Hypertensive disorder(Discharge Diagnosis) - 04/04/22 Discharge Disposition: Home or Self Care Attending Physician: Rafal Alvarez DO Admitting Physician: Rafal Alvarez DO Allergies, Adverse Reactions, Alerts No Known Allergies Assessment and Plan Future Appointments Future Scheduled Tests Laboratory* Hemoglobin A1c 11/23/21 Immunizations Given and Recorded Vaccine Date Status [...] ed tetanus/diphth/pertuss (Tdap) adult/adol 11/10/10 Recorded Novel [id number], all formulation 04/20/09 Recorded 1Result Comment: tolerated [...] Ordered aspirin 81 mg oral tablet, chewable 81 mg = 1 tab, Chewed, Daily, # 90 tab, 2 Refill(s), Pharmacy: [facility], 170, cm, 08/22/21 15:48:00 EDT, Height/Length Dosing, 118, kg, 08/22/21 15:48:00 EDT, Weight Dosing Start Date: 02/09/22 Status: Ordered busPIRone 15 mg oral tablet 15 mg = 1 tab, Oral, Daily, for 28 days Start Date: 08/30/21 Status: Ordered compression socks compression socks, To be worn daily for edema, Supply, See instructions, # 1 EA, 0 Refill(s) Start Date: 10/18/21 Status: Ordered Compression stockings Compression stockings, use stockings bilaterally daily, Supply, See instructions, # 1 EA, 0 Refill(s), Pharmacy: [facility] Start Date: 10/18/21 Status: Ordered Diabetic shoes Diabetic shoes, Patient needs to be fitted and have diabetic shoes ordered, Supply, See instructions, # 1 EA, 0 Refill(s) Start Date: 11/11/21 Status: Ordered fluticasone 50 mcg/inh nasal spray 2 sprays, Nasal, every morning, # 16 g, 5 Refill(s), Pharmacy: [facility], 170, cm, 08/22/21 15:48:00 EDT, Height/Length Dosing, 118, kg, 08/22/21 15:48:00 EDT, Weight Dosing Start Date: 09/09/21 Status: Ordered furosemide 40 mg oral tablet 80 mg = 2 tab, Oral, every morning Start Date: 08/30/21 Status: Ordered Glucometer Glucometer, test sugars up to three times daily., Supply, See instructions, # 1 EA, 0 Refill(s), Pharmacy: [id number] Start Date: 10/18/21 Status: Ordered Levemir 100 units/mL subcutaneous solution 90 units =, Subcutaneous, Daily, # 30 mL, 0 Refill(s), Pharmacy: [id number], 170, cm, 08/22/21 15:48:00 EDT, Height/Length Dosing, 118, kg, 08/22/21 15:48:00 EDT, Weight Dosing Start Date: 03/23/22 Status: Ordered losartan 50 mg oral tablet 50 mg = 1 tab, Oral, Daily, for 90 days, # 90 tab, 4 Refill(s), Pharmacy: [facility],170, cm, 08/22/21 15:48:00 EDT, Height/Length Dosing, 118, kg, 08/22/21 15:48:00 EDT, Weight Dosing Start Date: 01/19/22 Status: Ordered metFORMIN 1000 mg oral tablet 1,000 mg = 1 tab, Oral, BID Start Date: 08/30/21 Status: Ordered ohm Allergy Relief 10 mg oral tablet 1 tab, Oral, Daily, # 28 tab, 3 Refill(s), Pharmacy: [id number], 170, cm, 08/22/21 15:48:00 EDT, Height/Length Dosing, 118, kg, 08/22/21 15:48:00 EDT, Weight Dosing Start Date: 03/07/22 Status: Ordered OPTICHAMBER MIS TOMAS OPTICHAMBER MIS TOMAS Start Date: 09/01/21 Status: Ordered Trulicity Pen 1.5 mg/0.5 mL subcutaneous solution 1.5 mg = 0.5 mL, Subcutaneous, every week Start Date: 08/30/21 Status: Ordered UltiCare Insulin Syringe 30G X 5/161 ML MISC UltiCare Insulin Syringe 30G X 5/161 ML MISC, See Instructions, USE ONCE DAILY, # 100 EA, 3 Refill(s), Pharmacy: [id number], 170, cm, 08/22/21 15:48:00 EDT, Height/Length Dosing, 118, kg, 08/22/21 15:48:00 EDT, Weight Dosing Start Date: 09/07/21 Status: Ordered ULTICARE INSULIN SYRINGE/ 1ML/30G SYN ULTICARE INSULIN SYRINGE/ 1ML/30G SYN Start Date: 08/30/21 Status: Ordered Problem List Condition Confirmation Course Effective Dates Status H ealth Status Informant Alcohol abuse Confirmed Active Allergic rhinitis Confirmed Active Arteritis Confirmed Active Bacterial pneumonia Confirmed Active Cough Confirmed Active Generalized anxiety disorder Confirmed Active Hypertensive disorder Confirmed Active 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 Localized edema Confirmed Active 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 Nicotine dependence Confirmed Active Right arm pain Confirmed Active Puncture wound of skin Confirmed Active Right upper quadrant pain Confirmed Active Schizophrenia Confirmed Active Severe obesity Confirmed Active Tinea pedis Confirmed Active Diabetes mellitus, type II uncontrolled Confirmed Active non-pressure ulcer lower limb Confirmed Active Results Laboratory List Name Date Comprehensive Metabolic Panel (CMP) 04/04 Hemoglobin A1c 04/04/22 Most recent to oldest [Reference Range]: 1 BUN [7-18 mg/dL] 15 mg/dL (04/04/22 3:39 PM) Glucose Level [74-106 mg/dL] 202 mg/dL *HI* (04/04/22 3:39 PM) Potassium Level [3.5-5.1 mmol/L] 3.9 mmo l/L (04/04/22 3:39 PM) AST [15-37 unit/L] 17 unit/L (04/04/22 3:39 PM) ALT [16-63 unit/L] 19 unit/L (04/04/22 3:39 PM) Sodium Level [136-145 mmol/L] 139 mmol/L (04/04/22 3:39 PM) Calcium Level [8.5-10.1 mg/dL] 8.9 mg/dL (04/04/22 3:39 PM) Albumin Level [3.4-5.0 g/dL] 3.3 g/dL *LOW* (04/04/22 3:39 PM) Protein Total [6.4-8.2 g/dL] 6.9 g/dL (04/04/22 3:39 PM) Bilirubin Total [0.2-1.0 mg/dL] 0.4 mg/d L (04/04/22 3:39 PM) Alk Phos [46-146 unit/L] 81 unit/L (04/04/22 3:39 PM) CO2 [21-32 mmol/L] 31 mmol/L (04/04/22 3:39 PM) eGFR Non-AA [>=60] 85 (04/04/22 3:39 PM) eGFR AA [>=60] 85 (04/04/22 3:39 PM) Hemoglobin A1c [4.0-6.0 %] 11.6 % 1 *HI* (04/04/22 3:39 PM) Chloride Level [98-107 mmol/L] 100 mmol/ L (04/04/22 3:39 PM) Creatinine Level [0.70-1.30 mg/dL] 1.02 mg/dL (04/04/22 3:39 PM) 1Result Comment: Glucose >200. Social History Social History Type Response Tobacco Current everyday tob acco user Tobacco Use:. 1.5 packs a day per day. Sex Male Patient Care team information Personnel Name: Rafal Alvarez DO Address: Address: [facility] [id number] [place] [address]
--- OUTSIDE RECORDS SUMMARY | 2023-09-13 16:11 | XMS_ITS | Continuity of Care Document ---
Author Name Unknown Organization [facility] Address [address] [place] [address] Care Team Providers Care Life Science Taxonomist Name Role Phone Rafal Alvarez Primary Care Physician [phone] Encounter NCTY_PA Date(s): 10/06/22 - 10/06/[address] [address] Encounter Diagnosis Pain of left hip joint(Discharge Diagnosis) - 10/06/22 Discharge Disposition: Home or Self Care Attending Physician: Levon Webster MD Admitting Physician: Levon Webster MD Allergies, Adverse Reactions, Alerts No Known Allergies Assessment and Plan Extracted from: Title:Clinical Document Author:Arleen Macias te:10/06/22 Diagnosis: 1. Pain of left h ip joint Comment: Diagnosis: Back pain Comment: Future Scheduled Tests Laboratory* Hemoglobin A1c 11/23/21 * Hemoglobin A1c 06/28/22 Functional Status 10/06/22 Other exposure to Infectious Disease Non e Immunizations Given and Recorded Vaccine Date Status [...] ed tetanus/diphth/pertuss (Tdap) adult/adol 11/10/10 Recorded Novel [id number], all formulation 04/20/09 Recorded 1Result Comment: tolerated [...] Daily, # 90 tab, 2 Refill(s), Pharmacy: [facility], 170, cm, 08/22/21 15:48:00 EDT, Height/Length Dosing, [...] instructions, # 1 EA, 0 Refill(s), Pharmacy: [facility] Start Date: 10/18/21 Status: Ordered Diabetic shoes Diabetic shoes, Patient needs to be fitted and have diabetic shoes ordered, Supply, See instructions, # 1 EA, 0 Refill(s) Start Date: 11/11/21 Status: Ordered Farxiga 5 mg oral tablet 5 mg = 1 tab, Oral, Daily, May substitute per formulary, # 90 tab, 2 Refill(s), Pharmacy: [facility], 170, cm, 08/22/21 15:48:00 EDT, Height/Length Dosing, 118, kg, 08/22/21 15:48:00 EDT, Weight Dosing Start Date: 04/26/22 Status: Ordered fluticasone 50 mcg/inh nasal spray 2 sprays, Nasal, every morning, # 16 g, 5 Refill(s), Pharmacy: [facility], 170, cm, 08/22/21 15:48:00 EDT, Height/Length Dosing, 118, kg, 08/22/21 15:48:00 EDT, Weight Dosing Start Date: 09/09/21 Status: Ordered furosemide 40 mg oral tablet 80 mg = 2 tab, Oral, every morning, # 180 tab, 3 Refill(s), Pharmacy: [facility], 170, cm, 08/22/21 15:48:00 EDT, Height/Length Dosing, 118, kg, 08/22/21 15:48:00 EDT, Weight Dosing Start Date: 05/04/22 Status: Ordered Glucometer Glucometer, test sugars up to three times daily. E11.9 What insurance will cover, Supply, See instructions, # 1 EA, 0 Refill(s), Pharmacy: [facility] Start Date: 04/27/22 Status: Ordered glucomter glucomter, E11.9 uncontrolled. check BS once per day, Supply, See instructions, # 1 EA, 0 Refill(s), [facility] Start Date: 04/26/22 Status: Ordered ibuprofen 800 mg oral tablet 800 mg = 1 tab, Oral, every 8 hr, PRN pain, moderate, X 10 days, # 30 tab, 0 Refill(s), 10/16/22 2:55:00 EDT, Pharmacy: [facility], 170, cm, 10/06/22 2:21:00 EDT, Height/Length Dosing, 116.2, kg, 10/06/22 2:21:00 EDT, Weight Dosing Start Date: 10/06/22 Stop Date: 10/16/22 Status: Ordered Lancets Lancets, E11.9 Once per day, Supply, See instructions, # 100 EA, 3 Refill(s), Pharmacy: [facility] Start Date: 04/27/22 Status: Ordered Levemir 100 units/mL subcutaneous solution 90 units =, Subcutaneous, Daily, # 30 mL, 3 Refill(s), Pharmacy: [facility] [id number], 170, cm, 08/22/21 15:48:00 EDT, Height/Length Dosing, 118, kg, 08/22/21 15:48:00 EDT, Weight Dosing Start Date: 06/09/22 Status: Ordered losartan 50 mg oral tablet 50 mg = 1 tab, Oral, Daily, for 90 days, # 90 tab, 4 Refill(s), Pharmacy: [facility],170, cm, 08/22/21 15:48:00 EDT, Height/Length Dosing, 118, kg, 08/22/21 15:48:00 EDT, Weight Dosing Start Date: 01/19/22 Status: Ordered metFORMIN 1000 mg oral tablet 1,000 mg = 1 tab, Oral, BID, # 180 tab, 3 Refill(s), Pharmacy: [facility], 170, cm, 08/22/21 15:48:00 EDT, Height/Length Dosing, 118, kg, 08/22/21 15:48:00 EDT, Weight Dosing Start Date: 05/04/22 Status: Ordered ohm Allergy Relief 10 mg oral tablet 1 tab, Oral, Daily, # 28 tab, 3 Refill(s), Pharmacy: [facility] [address], 170, cm, 08/22/21 15:48:00 EDT, Height/Length Dosing, 118, kg, 08/22/21 15:48:00 EDT, Weight Dosing Start Date: 07/25/22 Status: Ordered OPTICHAMBER MIS TOMAS OPTICHAMBER MIS TOMAS Start Date: 09/01/21 Status: Ordered Test strips Test strips, to go with glucometer E11.9 pt tetsts once daily, Supply, See instructions, # 100 EA, 3 Refill(s), Pharmacy: [facility] Start Date: 04/27/22 Status: Ordered Trulicity Pen 1.5 mg/0.5 mL subcutaneous solution 1.5 mg = 0.5 mL, Subcutaneous, every week Start Date: 08/30/21 Status: Ordered ULTICARE INSULIN SYRINGE/ 1ML/30G SYN ULTICARE INSULIN SYRINGE/ 1ML/30G SYN Start Date: 08/30/21 Status: Ordered UtiCare Insulin Syringe 30GX5/15 1ML UtiCare Insulin Syringe 30GX5/15 1ML, See Instructions, use 1x daily, # 100 EA, 3 Refill(s), Pharmacy: [facility], dx E11.9, 170, cm, 08/22/21 15:48:00 EDT, Height/Length Dosing, 118, kg, 08/22/21 15:48:00 EDT, Weight Dosing Start Date: 05/22/22 Status: Ordered Mental Status 10/06/22 Eye Opening Response Magnolia Spontaneous ly Best Verbal Response Yemi Oriented Best Motor Response Yemi Obeys comman ds Yemi Coma Score 15 Problem List Condition Confirmation Course Effective Dates [...] Active non-pressure ulcer lower limb Confirmed Active Vital Signs Most recent to oldest [Reference Range]: 1 2 Temperature Temporal Artery [36-38 Deg C ] 36.5 Deg C (10/06/22 2:16 AM) Peripheral Pulse Rate [60-100 bpm] 73 bp m (10/06/22 3:13 AM) 74 bpm (10/06/22 2:16 AM) Respiratory Rate [12-24 br/min] 18 br/mi n (10/06/22 2:16 AM) Blood Pressure [90-140/60-90 mmHg] 118/7 7mmHg (10/06/22 3:13 AM) 132/78mmHg (10/06/22 2:16 AM) Weight 116.20 kg (10/06/22 2:16 AM) Weight Dosing 116.20 kg (10/06/22 2:21 AM) Height 170.000 cm (10/06/22 2:16 AM) Height/Length Dosing 170.000 cm (10/06/22 2:21 AM) Body Mass Index 40.000 kg/m2 (10/06/22 2:16 AM) Social History Social History Type Response Tobacco Current everyday tob acco user Tobacco Use:. 1.5 packs a day per day. Sex Male Hospital Discharge Instructions Patient Education 10/06/2022 01:55:25 Hip Pain Hip Pain The hip is the joint between the upper legs and the lower pelvis. The bones, cartilage, tendons, and muscles of your hip joint support your body and allow you to move around. Hip pain can range from a minor ache to severe pain in one or both of your hips. The pain may be felt on the inside of the hip joint near the groin, or on the outside near the buttocks and upper thigh. You may also have swelling or stiffness in your hip area. Follow these instructions at home: Managing pain, stiffness, and swelling ??? If directed, put ice on the painful area. To do this: ??? Put ice in a plastic bag. ??? Place a towel between your skin and the bag. ??? Leave the ice on for 20 minutes, 2???3 times a day. ??? If directed, apply heat to the affected area as often as told by your health care provider. Usethe heat source that your health care provider recommends, such as a moist heat pack or a heating pad. ??? Place a towel between your skin and the heat source. ??? Leave the heat on for 20???30 minutes. ??? Remove the heat if your skin turns bright red. This is especially important if you are unable to feel pain, heat, or cold. You may have a greater risk of getting burned. Activity ??? Do exercises as told by your health care provider. ??? Avoid activities that cause pain. General instructions ??? Take fzip-cfl-atrjsgq and prescription medicines only as told by your health care provider. ??? Keep a journal of your symptoms. Write down: ??? How often you have hip pain. ??? The location of your pain. ??? What the pain feels like. ??? What makes the pain worse. ??? Sleep with a pillow between your legs on your most comfortable side. ??? Keep all follow-up visits as told by your health care provider. This is important. Contact a health care provider if: ??? You cannot put weight on your leg. ??? Your pain or swelling continues or gets worse after one week. ??? It gets harder to walk. ??? You have a fever. Get help right away if: ??? You fall. ??? You have a sudden increase in pain and swelling in your hip. ??? Your hip is red or swollen or very tender to touch. Summary ??? Hip pain can range from a minor ache to severe pain in one or both of your hips. ??? The pain may be felt on the inside of the hip joint near the groin, or on the outside near the buttocks and upper thigh. ??? Avoid activities that cause pain. ??? Write down how often you have hip pain, the location of the pain, what makes it worse, and whatit feels like. This information is not intended to replace advice given to you by your health care provider. Make sure you discuss any questions you have with your health care provider. Document Revised: 07/28/2019 Document Reviewed: 07/28/2019 [employer] Patient Education ?? 2022 [employer]. Follow Up Care 10/06/2022 02:15:56 With:Follow up with primary care provider Address: When: only if needed Physician Emergency department Note * Levon Webster MD: PERFORM Event Display: ED Note Physician Authored Date: [id number] SHIRA REGALADO :1965 Age:57 years Sex:Male Visit Date:10/06/2022 Primary Care Physician: Rafal Alvarez DO Basic Information Time Seen: Levon Webster MD / 10/06/2022 02:24 Chief Complaint lleft lower back pain that radiates down the leg with some tingling. bella injury History Of Present Illness: 57-year-old male came in by ambulance because of left??hip area pain without trauma.?She points to his left hip as the area of pain.?Per EMS it has been bothering him for 3 days, he has not taken anything for pain but he was given Tylenol??IV??by EMS.?? No recent falls.?? He tells me the paindoes not go??down his left leg but stays in the left hip area where he points.?? Denies any urinaryincontinence or bowel incontinence denies abdominal pain??and denies any saddle anesthesia on history.?? Although it is mentioned tingling in nurses intake he tells me its more the pain in the left hip area.?? No knee pain or discomfort??of thigh??or lower leg.?? No pain on the right side.?? No lumbar??or CVA area pain.?? Patient was out on his porch having a couple beers this evening??and eventually decided to go the ambulance. Review of Systems: Constitutional:??no??fever,? Skin:??no??Jaundice,??no??rash,??no??lesions,??no??petechiae ENMT:??no??ear pain,??no??sore throat,??no??congestion,??no??hoarseness Respiratory:??no??shortness of breath,??no??cough,? Cardiovascular:??no??chest pain,??no??palpitations,??no??edema Gastrointestinal:??no??nausea,??no??vomiting,??no??diarrhea,??no abdominal pain Genitourinary:??no??dysuria,??no??hematuria,??no??discharge,??no incontinence Musculoskeletal:??See HPI no??trauma Neurologic:?? ,??no??weakness ?? Physical Exam Vitals & Measurements T:??36.5?C ??(Temporal Artery)?? HR:??74??(Peripheral)?? RR:??18?? BP:??132/78?? SpO2:??95%?? HT:??170.000??cm?? WT:??116.20??kg?? BMI:??40.000?? Pain Score:??10?? O2 Therapy:??Room air?? General:??alert,??no acute distress.?? Does not look septic or toxic no respiratory distress. Skin:??warm,??dry. Head:??no??trauma,??normocephalic. Neck:??trachea??midline,??no??adenopathy,??no??tenderness. Eye:??normal??conjunctiva, sclera??clear. Cardiovascular:??regular??rate and rhythm,??normal??peripheral perfusion. Respiratory: lungs??CTA, respirations??non-labored. Chest wall:??no??deformity. Gastrointestinal:??soft,?? no??tenderness,??no??guarding.?? Quite obese abdomen is soft and nontender.?? Nonincarcerated small umbilical??hernia defect noted.?? No inguinal hernias. Extremities:??no??deformity,??no??trauma.?? Tenderness on palpation and also movement either activeor passive of the left hip joint.?? Otherwise the left lower extremity shows no swelling no signs of DVT and he has great pedal and posterior tibialis pulse??and the foot is nice and warm with good capillary refill. ??You no signs of arterial insufficiency.?? Straight leg raise does not appear to elicit any specific radicular??pain but??its more the movement of the left hip joint that seems to cause some pain. Low back: I see no signs of shingles,??no vertebral point tenderness,??perhaps some tenderness overthe left SI joint??no signs of inflammation. ??No CVA tenderness. Neurological:?LOC??appropriate for age??, speech??normal. Psychiatric:??cooperative, affect??appropriate for age,?? Medical Decision Making: Medical Decision-Making: ?? Tests in the radiology section of CPT??: ordered and reviewed -??Yes ?? Obtain history from someone other than the patient -??Yes, EMS personnel Review and summarize past medical records -??Yes ?? Independent visualization of images, tracings, or specimens? Yes ?? Differential diagnoses appears to be??joint??pain of left hip, likely arthritic,??no fever,??does not appear to have any infectious process,??less likely to be sciatica or lumbar radiculopathy. ??No signs of arterial insufficiency??or occlusion or??DVT.?? No signs of shingles.?? Patient had alreadyreceived Tylenol, will give him some Toradol and get x-rays of left hip and pelvis. ?? Hip and pelvis x-ray??overall unremarkable, there is slight joint space narrowing of the left hip joint I believe??will write for ibuprofen 800, will recommend a heating pad and also doing Tylenol.?? I think weight loss would be beneficial also. ??Discharged in stable condition. ?? Procedure No Qualifying Data Assessment/Plan 1.??Pain of left hip joint??M25.552 Ordered: ibuprofen 800 mg oral tablet, 800 mg = 1 tab, Oral, every 8 hr, PRN pain, moderate, X 10 days, # 30tab, 0 Refill(s), 10/16/22 2:55:00 EDT, Pharmacy: [facility], 170, cm, 10/06/22 2:21:00 EDT, Height/Length Dosing, 116.2, kg, 10/06/22 2:21:00 EDT, Weight Dosing Discharge Patient, 10/06/22 2:55:00 EDT, Home Independently, Constant Indicator ?? Orders: XR Hip 2-3 Views w/AP Pelvis Left, 10/06/22 2:24:00 EDT, Stat, Reason: pain, Transport Mode: Stretcher, Exam to be performed outside organization? Patient Education Hip Pain Follow Up With When Contact Information Follow up with primary care provider Only if needed Additional Instructions: Medication Reconciliation New Prescription ibuprofen (ibuprofen 800 mg oral tablet)1 tab Oral (given by mouth) every 8 hours as needed pain, moderate for 10 Days. Refills: 0. ?? Unchanged albuterol (Albuterol (Eqv-ProAir HFA) 90 mcg/inh inhalation aerosol)2 Puffs Inhale (breathe in) every 4 hours as needed other (see comment). as needed. ?? ARIPiprazole (ARIPiprazole 10 mg oral tablet)1 tab Oral (given by mouth) every day. for 28 days. ?? aspirin (aspirin 81 mg oral tablet, chewable)1 tab Chewed every day. Refills: 2. ?? busPIRone (busPIRone 15 mg oral tablet)1 tab Oral (given by mouth) every day. for 28 days. ?? dapagliflozin (Farxiga 5 mg oral tablet)1 tab Oral (given by mouth) every day. May substitute per formulary. Refills: 2. ?? dulaglutide (Trulicity Pen 1.5 mg/0.5 mL subcutaneous solution)0.5 [place] Subcutaneous (under the skin) every week. ?? Durable Medical Equipment for Prescription (compression socks)To be worn daily for edema. Refills: 0. ?? Durable Medical Equipment for Prescription (Compression stockings)use stockings bilaterally daily. Refills: 0. ?? Durable Medical Equipment for Prescription (Diabetic shoes)Patient needs to be fitted and have diabetic shoes ordered. Refills: 0. ?? Durable Medical Equipment for Prescription (Glucometer)test sugars up to three times daily. E11.9 What insurance will cover. Refills: 0. ?? Durable Medical Equipment for Prescription (glucomter)E11.9 uncontrolled. check BS once per day. Refills: 0. ?? Durable Medical Equipment for Prescription (Lancets)E11.9 Once per day. Refills: 3. ?? Durable Medical Equipment for Prescription (Test strips)to go with glucometer E11.9 pt tetsts once daily. Refills: 3. ?? fluticasone nasal (fluticasone 50 mcg/inh nasal spray)2 Sprays Nasal (into the nose) every morning.Refills: 5. ?? furosemide (furosemide 40 mg oral tablet)2 tab Oral (given by mouth) every morning. Refills: 3. ?? insulin detemir (Levemir 100 units/mL subcutaneous solution)90 Units Subcutaneous (under the skin) every day. Refills: 3. ?? loratadine (ohm Allergy Relief 10 mg oral tablet)1 tab Oral (given by mouth) every day. Refills: 3. ?? losartan (losartan 50 mg oral tablet)1 tab Oral (given by mouth) every day. for 90 days. Refills: 4. ?? metFORMIN (metFORMIN 1000 mg oral tablet)1 tab Oral (given by mouth) 2 times a day. Refills: 3. ?? Other Prescription (OPTICHAMBER MIS TOMAS) ?? Other Prescription (ULTICARE INSULIN SYRINGE/ 1ML/30G SYN) ?? Other Prescription (UtiCare Insulin Syringe 30GX5/15 1ML)use 1x daily. Refills: 3. 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 Tobacco Current everyday tobacco user Tobacco Use:. 1.5 packs a day per day. Family History Cancer: Mother. Diagnostic Results Diagnostic Study Interpretation: Hip and pelvis x-rays interpreted by me is unremarkable. Electronically Signed on 10/06/22 02:58 AM Levon Webster MD Emergency department Discharge instructions * Levon Webster MD: PERFORM Event Display: ED Discharge Information Authored Date: [id number] SHIRA REGALADO Azul :1965 Age:57 years Sex:Male Visit Date:10/06/2022 Primary Care Physician: Rafal Alvarez DO Discharge Instructions We would like to thank you for allowing us to assist you with your healthcare needs. The following includes patient education materials and information regarding your injury/illness. Diagnosis from Today's Visit Pain of left hip joint Discharge Vitals Temperature??(Temporal Artery) 97.7 ??F (36.5 ??C) Heart Rate??(Peripheral) 74 Respiratory Rate?? 18 Blood Pressure?? 132/78?? Height?? 66.93 in (170.000 cm) Weight?? 256.22 lb (116.20 kg) BMI?? 40.000 Allergies No Known Allergies No Known Medication Allergies What to Do Next Instructions from Your Care Team Avoid activities that??worsen the pain,??you can purchase a cane??to help get around and decrease the strain on the left hip joint.?? Take some Tylenol 1000 mg every 6 hours as needed for pain. ??Also a prescription for ibuprofen 800 mg to take as needed for your pain sent to your pharmacy. ??You can apply a heating pad 15 minutes every 2 or 3 hours if it helps. You Need to Schedule the Following Appointments Follow Up with??Follow up with primary care provider When:??Only if needed You were treated today on an emergency basis; it may be tesfaye to contact your primary care provider to notify them of your visit today. You may have been referred to your regular doctor or a specialist, please follow up as instructed. If your condition worsens or you can't get in to see the doctor, contact the Emergency Department. Medications What How Much When Why Instructions Next Dose New ibuprofen (ibuprofen 800 mg oral tablet) 1 tab Oral (given by mouth) Every 8 hours as needed for pain, moderate Pain of left hip joint Duration: 10 Days Pickup at [facility] Pharmacy Information [facility]: [address] [place], [place] [id number] [phone] Education Materials Hip Pain The hip is the joint between the upper legs and the lower pelvis. The bones, cartilage, tendons, and muscles of your hip joint support your body and allow you to move around. Hip pain can range from a minor ache to severe pain in one or both of your hips. The pain may be felt on the inside of the hip joint near the groin, or on the outside near the buttocks and upper thigh. You may also have swelling or stiffness in your hip area. Follow these instructions at home: Managing pain, stiffness, and swelling ? If directed, put ice on the painful area. To do this: ? Put ice in a plastic bag. ? Place a towel between your skin and the bag. ? Leave the ice on for 20 minutes, 2???3 times a day. ? If directed, apply heat to the affected area as often as told by your health care provider. Use theheat source that your health care provider recommends, such as a moist heat pack or a heating pad. ? Place a towel between your skin and the heat source. ? Leave the heat on for 20???30 minutes. ? Remove the heat if your skin turns bright red. This is especially important if you are unable to feel pain, heat, or cold. You may have a greater risk of getting burned. Activity ? Do exercises as told by your health care provider. ? Avoid activities that cause pain. General instructions ? Take ylto-lif-mhrqzew and prescription medicines only as told by your health care provider. ? Keep a journal of your symptoms. Write down: ? How often you have hip pain. ? The location of your pain. ? What the pain feels like. ? What makes the pain worse. ? Sleep with a pillow between your legs on your most comfortable side. ? Keep all follow-up visits as told by your health care provider. This is important. Contact a health care provider if: ? You cannot put weight on your leg. ? Your pain or swelling continues or gets worse after one week. ? It gets harder to walk. ? You have a fever. Get help right away if: ? You fall. ? You have a sudden increase in pain and swelling in your hip. ? Your hip is red or swollen or very tender to touch. Summary ? Hip pain can range from a minor ache to severe pain in one or both of your hips. ? The pain may be felt on the inside of the hip joint near the groin, or on the outside near the buttocks and upper thigh. ? Avoid activities that cause pain. ? Write down how often you have hip pain, the location of the pain, what makes it worse, and what it feels like. This information is not intended to replace advice given to you by your health care provider. Make sure you discuss any questions you have with your health care provider. Document Revised: 07/28/2019 Document Reviewed: 07/28/2019 [employer] Patient Education ?? 2022 [employer] Tests Performed Medications and Immunizations Administered Given Toradol, 30 mg, IV Bolus Patient/Larriman Signature Patient Name:SHIRA REGALADO I have received this information and my questions have been answered. Patient/Larriman Name: Patient/Larriman Signature: Relationship to Patient: Witness Name/Signature: Date: Electronically Signed on: 10/06/2022 02:57 EDTSigned by:RANJIT Discharge summary * Arleen Macias: PERFORM Event Display: Discharge Note Authored Date: * Arleen Macias: PERFORM Event Display: Discharge Note Authored Date: Diagnosis: 1. Pain of left hip joint Comment: Diagnosis: Back pain Comment: Electronically Signed on 10/06/22 06:16 AM Arleen Macias Patient Care team information Care Team Personnel Name: Rafal Alvarez DO Position: Physician Member Role: Informed Provider Address: Address: [place] [facility] [address] [place], [place] [address] Name: Levon Webster MD Position: Physician Member Role: Attending Physician Address: Address: [address] [place] [id number] Name: Romi Rainey Position: Nurse Member Role: ED Nurse Care Team Related Persons Name: ESTELA DIXON
--- OUTSIDE RECORDS SUMMARY | 2023-09-13 16:11 | XMS_ITS | Continuity of Care Document ---
Author Name Unknown Organization [facility] Address [address] [place] [address] Care Team Providers Care Deputy Building Guard Name Role Phone Marcelo Brar Primary Care Physician Encounter [facility] Date(s): 07/28/23 - 08/09/23 [facility] [address] [place] [address] Encounter Diagnosis Diabetic ulcer of left foot(Discharge Diagnosis) - 07/29/23 Colon cancer(Discharge Diagnosis) - 08/03/23 Osteomyelitis of toe(Discharge Diagnosis) - 08/03/23 Colitis(Discharge Diagnosis) - 07/28/23 Alcohol use disorder(Discharge Diagnosis) - 08/03/23 Schizophrenia(Discharge Diagnosis) - 07/28/23 Pulmonary nodule(Discharge Diagnosis) - 07/28/23 Anemia(Discharge Diagnosis) - 07/29/23 Type 2 diabetes mellitus(Discharge Diagnosis) - 08/03/23 Anemia(Discharge Diagnosis) - 07/28/23 Anemia(Discharge Diagnosis) - 08/03/23 Discharge Disposition: Home w/ Home Health Care Attending Physician: Teena English MD Admitting Physician: Teena English MD Allergies, Adverse Reactions, Alerts No Known Allergies Assessment and Plan Extracted from: Title:Discharge Note Author:Geovanny Sevilla PA-C Date:08/09/23 Discharge Plan 1.??Colon cancer??C18.9 2.??Osteomyelitis of toe??M86.9 3.??Diabetic ulcer of left foot??E11.621 4.??Colitis??K52.9 5.??Alcohol use disorder??F10.90 6.??Schizophrenia??F20.9 7.??Pulmonary nodule??R91.1 8.??Type 2 diabetes mellitus??E11.9 9.??Anemia??D64.9,??Anemia??D64.9,??Anemia??D64.9 Orders: ciprofloxacin 500 mg oral tablet, 500 mg = 1 tab, Oral, every 12 hr, # 56 tab, 0 Refill(s), Pharmacy: [facility], 170, cm, 08/02/23 12:14:00 EDT, Height, 115.2, kg, 07/28/23 13:18:00 EDT, Weight Dosing Discharge Diet Instruction, Diabetic Diet Discharge Patient, 08/09/23 8:26:00 EDT, Home with VNA Services: resume VNA services- [facility] Follow Up With When Contact Information [employer] 08/16/2023 03:00 PM EDT Additional Instructions: Marcelo Brar MD Within [address] [place] [address] [place] [address]- Additional Instructions: Extracted from: Title:Progress/SOAP Note Author:Geovanny Sevilla Date:08/08/23 1.??Colon cancer??C18.9 ??S/p open right colectomy day 2 Continues to do very well postoperatively?? Reports incisional pain is improving Patient reports he has had a bowel movement and continues to pass gas Continue to encourage post op ambulation?? High suspicion of colon cancer clinically and with elevated CEA, concern for metastatic disease with pulmonary nodules seen on imaging?? Diet advanced to full cardiac healthy diet Will need referral to surgical oncology at the time of discharge Continue DVT ppx with lovenox?? Colonoscopy path reports show tubulovillous adenoma, however sample sent from hemicolectomy results are still pending Continue to monitor closely postoperatively?? 2.??Osteomyelitis of toe??M86.9 ??Continues to refuse amputation of the left great toe due to osteomyelitis despite being educated in regards to the risk of not amputating Would like to continue seeing his cellular tower climber for further outpatient management Continue antibiotics?? 3.??Diabetic ulcer of left foot??E11.621 ?Continue wound care and antibiotics?? 4.??Colitis??K52.9 ??Concern that there may have been an infectious component to his abdominal inflammation evident on CT scan?? Will continue antibiotics?? 5.??Alcohol use disorder??F10.90 ?No evidence of withdrawal seen here during hospital course?? 6.??Schizophrenia??F20.9 ?Continue aripiprazole?? 7.??Pulmonary nodule??R91.1 ??Will need to follow-up with oncology and likely need a PET scan in the future??but will have this tumor resected??as it has been bleeding??and he is needed 2 units??replacement. 8.??Type 2 diabetes mellitus??E11.9 ??Control has been reasonable.?? Continue current??insulin regimen. 9.??Anemia??D64.9,??Anemia??D64.9,??Anemia??D64.9 ??Transfused 2 units so far. ??Continue to follow his??hemoglobin.?? This is??related to blood loss??in the setting of??colon cancer. Addendum by Teena English on August 09, 2023 07:20:05 EDT Case was discussed and agree with assessment and plan as above. Extracted from: Title:Consult Note Author:Fuentes Ellison DO Date:07/31/23 1.??Sepsis??A41.9 2.??Diabetic ulcer of left foot??E11.621 ??- Osteomyelities was revealed on MRI. I had long discussion that definitive treatement for this would consist of amputation of at least a portion of his left great toe. He did not want to proceed with amputation and refused multple times. He would like to continue course of antibiotic treatemtn of (he will need at least 6 week course) and follow up with his cellular tower climber in [facility] for this. I did explain that the infection could get worse and spread but he did not want to proceed with amptuation this hospitization.? In terms of his CT scan findings of colitis, I did recommend colonscopy as outpatient for further assesment. Continue abx therapy for this. ON exam patient has no tenderness and he can follow me in office for this.? 3.??Cellulitis of leg??L03.119 4.??Toe ulcer??L97.509 5.??Alcohol use with withdrawal??F10.939 6.??Colitis??K52.9 7.??Alcohol abuse??F10.10 8.??Diabetes mellitus, type II uncontrolled??E11.9 9.??Severe obesity??E66.01 10.??Schizophrenia??F20.9 11.??Pulmonary nodule??R91.1 12.??Anemia??D64.9,??Anemia??D64.9 Non-pressure chronic ulcer of other part of left foot with unspecified severity??L97.529 Extracted from: Title:Wound Care Note Author:Gisselle Leos te:07/31/23 1.??Sepsis??A41.9 2.??Diabetic ulcer of left foot??E11.621 3.??Cellulitis of leg??L03.119 4.??Toe ulcer??L97.509 5.??Alcohol use with withdrawal??F10.939 6.??Colitis??K52.9 7.??Alcohol abuse??F10.10 8.??Diabetes mellitus, type II uncontrolled??E11.9 9.??Severe obesity??E66.01 10.??Schizophrenia??F20.9 11.??Pulmonary nodule??R91.1 12.??Anemia??D64.9,??Anemia??D64.9 Non-pressure chronic ulcer of other part of left foot with unspecified severity??L97.529 Patient has a left great toe wound. Surgery has been consulted for wound management. Extracted from: Title:H & P Author:Teena English MD Date:07/28/23 1.??Sepsis??A41.9 ??58-year-old male who presents with fevers and altered mental status brought in after VNA had??found he was significantly??febrile with a Tmax of 103.5 ??F meeting sepsis and SIRS criteria with tachycardia, leukocytosis of 22 with bands??3%, tachypnea.?? Source of infection appears to be lower extremity infected diabetic??ulcers worse on the plantar aspect of the great toe.?? Obtain blood cultures we will follow-up on this. ??Will attempt to obtain wound cultures.?? Will have surgical consultation. ??Will consider MRI to rule out osteomyelitis.?? Continue??vancomycin??will add cefepime 2 g IV every 12 hours??and Flagyl 500 mg IV every 8 hours..?? Continue normal saline at 100 mL/h.?? Patient with fever appears to be more septic. ??Holding aripiprazole??does not appear to be neuroleptic malignant syndrome. 2.??Cellulitis of leg??L03.119 ??As above. 3.??Toe ulcer??L97.509 ??As above. 4.??Alcohol use with withdrawal??F10.939 ??Patient drinks 3-1/2??25 ounce??beers on a daily basis. ??High likelihood of alcohol withdrawal. ??Continue thiamine, folic acid, vitamin supplementation. ??Continue with CIWA protocol and assessments. ??Continue benzodiazepines.?? More frequent vital signs.?? 5.??Anemia??D64.9 ??Anemia with a hemoglobin of 9.0. ??No signs of??blood loss. ??Continue to monitor. 6.??Colitis??K52.9 ??CT scan revealed??acute inflammation wall thickening of the cecum and ascending colon wall with prominent adjacent pericolonic and pelvic adenopathy??possibly colitis versus diverticulitis versus neoplasm??versus possibly inflammatory however??no diarrhea or blood in stools??and no abdominal pain.?? Continue??cefepime 2 g IV every 12 hours and Flagyl 500 mg IV every 12 hours.?? Obtaining C. difficile testing although not having diarrhea??and significantly less likely.?? Patient will need??colonoscopy??once inflammation has??decreased. ??Most likely diverticulitis. 7.??Alcohol abuse??F10.10 ??As above. 8.??Diabetes mellitus, type II uncontrolled??E11.9 ? Holding??home oral diabetic agents. ??Insulin sliding scale. ??Continue long-acting insulin Lantus. ??Chemstrips AC plus at bedtime. ??Diabetic diet. 9.??Severe obesity??E66.01 ??Lifestyle modifications and weight loss. 10.??Schizophrenia??F20.9 ??Holding home or aripiprazole until??improved clinically not septic??to prevent further worsening of encephalopathy.. 11.??Pulmonary nodule??R91.1 Orders: albuterol 2.5 mg/3 mL (0.083%) inhalation solution, 2.5 mg = 3 mL, Nebulized Inhalation, Soln, QID RT, PRN shortness of breath, First Dose: 07/28/23 18:05:00 EDT, Routine aspirin, 81 mg = 1 tab, Oral, Tab-Chew, Daily, First Dose: 07/29/23 9:00:00 EDT, Routine cefepime, 2 g = 1 EA, IV Piggyback, Powder-Inj, every 12 hr, Antibiotic Indication Skin/soft tissue, diabetic foot, First Dose: 07/28/23 19:41:00 EDT, Routine, 200 mL/hr diazePAM, 10 mg = 2 tab, Oral, Tab, every 1 hr, PRN other (see comment), First Dose: 07/28/23 18:10:00 EDT, NOW diazePAM, 5 mg = 1 tab, Oral, Tab, every 6 hr, First Dose: 07/28/23 18:10:00 EDT, NOW diazePAM, 10 mg = 2 mL, IV Push, Soln, every 1 hr, PRN other (see comment), First Dose: 07/28/23 18:10:00 EDT, NOW diazePAM, 10 mg = 2 tab, Oral, Tab, every 1 hr, PRN other (see comment), First Dose: 07/28/23 18:10:00 EDT, NOW diazePAM, 10 mg = 2 tab, Oral, Tab, every 6 hr, First Dose: 07/28/23 18:10:00 EDT, NOW diazePAM, 5 mg = 1 mL, IV Push, Soln, every 1 hr, PRN other (see comment), First Dose: 07/28/23 18:10:00 EDT, NOW diazePAM, 10 mg = 2 mL, IV Push, Soln, every 6 hr, First Dose: 07/28/23 18:10:00 EDT, NOW diazePAM, 5 mg = 1 mL, IV Push, Soln, every 6 hr, First Dose: 07/28/23 18:10:00 EDT, NOW diazePAM, 10 mg = 2 mL, IV Push, Soln, every 10 min, PRN other (see comment), First Dose: 07/28/23 18:10:00 EDT, NOW folic acid, 1 mg = 1 tab, Oral, Tab, Daily for 3 days, First Dose: 07/29/23 9:00:00 EDT, Stop Date: 08/01/23 8:59:00 EDT, Physician Stop, Routine insulin glargine, 40 units = 0.4 mL, Subcutaneous, Soln, every night at bedtime, First Dose: 07/28/23 21:00:00 EDT, Routine multivitamin, 1 tab, Oral, Tab, Daily, First Dose: 07/28/23 18:10:00 EDT, NOW thiamine, 100 mg = 1 tab, Oral, Tab, Daily for 3 days, First Dose: 07/29/23 9:00:00 EDT, Stop Date: 08/01/23 8:59:00 EDT, Physician Stop, Routine vancomycin - Pharmacy to Dose, pharmacy to dose, IV Piggyback, Once, Antibiotic Indication Skin/soft tissue, diabetic foot, First Dose: 07/28/23 20:00:00 EDT, Stop Date: 07/28/23 20:00:00 EDT Notify Provider, 07/28/23 18:10:00 EDT, Ongoing Nursing Task, 07/28/23 18:10:00 EDT, Once, Stop date 07/28/23 18:10:00 EDT Nursing Task, 07/28/23 18:10:00 EDT, Constant order, CIWA reassessment Q2hr & PRN; For Very Mild Withdrawal CIWA < 10 & Mild Withdrawal CIWA 10-15 Nursing Task, 07/28/23 18:10:00 EDT, Constant order, CIWA reassessment Q1hr & PRN; For Moderate Withdrawal CIWA 16 - 20 & Severe Withdrawal CIWA > 20 PSO Admit to Inpatient, Semi-Private Telemetry, Inpatient, Teena English MD, 07/28/23 18:02:00 EDT, 07/28/23 18:02:00 EDT, 07/28/23 18:02:00 EDT, 2 midnights or more but less than 96 hrs Urine Culture, Urine, Routine collect, RT - Routine, 07/28/23 18:12:00 EDT, Once, Lab Collect Vital Signs, 07/28/23 18:10:00 EDT, every 1 hr Vital Signs, 07/28/23 18:10:00 EDT, every 2 hr Extracted from: Title:ED Provider Note Author:Ana De Los Santos Ma, MD Date:07/28/23 1.??Cellulitis of leg??L03.1 19 2.??Toe ulcer??L97.509 3.??Anemia??D64.9 4.??Colitis??K52.9 Orders: Blood Culture, Blood, Stat collect, ST - Stat, 07/28/23 14:58:00 EDT, Once, Nurse collect, Print Label Blood Culture, Blood, Stat collect, ST - Stat, 07/28/23 14:58:00 EDT, Once, Nurse collect, Print Label Future Appointments Diagnostic Tests Pending * Surgical Pathology [facility] 08/06/23 * Magnesium Level 08/07/23 * CBC w/o Diff 08/07/23 * Basic Metabolic Panel 08/08/23 Future Scheduled Tests Laboratory* Transferrin Serum [facility] 06/26/23 * Transferrin Serum [facility] 06/26/23 * Basic Metabolic Panel 08/16/23 * CBC w/ Diff 08/16/23 * Ferritin 06/26/23 * Ferritin 06/26/23 * Reticulocyte Count Automated 06/26/23 * Reticulocyte Count Automated 06/26/23 * Iron Level and TIBC 06/26/23 * Iron Level and TIBC 06/26/23 Functional Status 08/09/23 Breakfast Percent 100 08/09/23 Activity Status ADL Up to toilet, Ambulating in room, Up to chair Assistive Device Cane 08/09/23 Ambulation Patient Effort Fair Personal Care Provided Estela care 08/08/23 Lunch Percent 100 08/08/23 ADLs Minimal assistance 08/07/23 Anti-Embolism Device Activity: In place 08/07/23 Positioning/Pressure Reducing Devices Pi llow 08/06/23 Anti-Embolism Site Condition: No complic ations 08/03/23 Dinner Percent 100 08/02/23 Living Situation Home independently 07/30/23 Living Environment No Living Environmen t Information Available Lives In Single level home Lives With Friend Home Barriers None 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, 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, Health and 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, Personal ADL Home Equipment Cane Professional Skilled Services Nursing Special Services and Community Resources None Number of Stairs Outside 15 07/28/23 Family Member Travel History No recent t ravel Recent Travel History No recent travel Immunizations Given and Recorded Vaccine Date Status [...] ed tetanus/diphth/pertuss (Tdap) adult/adol 11/10/10 Recorded Novel [id number], all formulation 04/20/09 Recorded 1Result Comment: tolerated well 2Result Comment: pt tolerated well Medications acetaminophen 650 mg = 2 tab, Oral, Tab, every 6 hr, PRN pain, mild, First Dose: 07/28/23 8:28:00 PM CDT, Routine Start Date: 07/28/23 Stop Date: 08/06/23 Status: Discontinued Albuterol (Eqv-ProAir HFA) 90 mcg/inh inhalation aerosol 2 puffs, Inhale, every 4 hr, PRN other (see comment), as needed Start Date: 09/01/21 Status: Ordered ARIPiprazole 10 mg oral tablet 10 mg = 1 tab, Oral, Daily, for 28 days Start Date: 08/30/21 Status: Ordered aspirin 81 mg oral tablet, chewable 1 tab, Oral, Daily, # 90 tab, 3 Refill(s), Pharmacy: [facility], 170, cm, 10/06/22 2:21:00 EDT, Height/Length Dosing, 116.2, kg, 10/06/22 2:21:00 EDT, Weight Dosing Start Date: 02/13/23 Status: Ordered busPIRone 15 mg oral tablet 15 mg = 1 tab, Oral, Daily, for 28 days Start Date: 08/30/21 Status: Ordered ciprofloxacin 500 mg oral tablet 500 mg = 1 tab, Oral, every 12 hr, # 56 tab, 0 Refill(s), Pharmacy: [facility], 170, cm, 08/02/23 12:14:00 EDT, Height, 115.2, kg, 07/28/23 13:18:00 EDT, Weight Dosing Start Date: 08/09/23 Stop Date: 09/06/23 Status: Ordered compression socks compression socks, To be worn daily for edema, Supply, See instructions, # 1 EA, 0 Refill(s) Start Date: 10/18/21 Status: Ordered Compression stockings Compression stockings, use stockings bilaterally daily, Supply, See instructions, # 1 EA, 0 Refill(s), Pharmacy: [facility] Start Date: 10/18/21 Status: Ordered Diabetic shoes Diabetic shoes, Patient needs to be fitted and have diabetic shoes ordered, Supply, See instructions, # 1 EA, 0 Refill(s) Start Date: 11/11/21 Status: Ordered Farxiga 5 mg oral tablet 1 tab, Oral, Daily, # 28 tab, 3 Refill(s), Pharmacy: [facility] [id number], 170, cm, 10/06/22 2:21:00 EDT, Height/Length Dosing, 112, kg, 06/20/23 13:51:00 EDT, Weight Dosing Start Date: 07/20/23 Status: Ordered ferrous gluconate 324 mg (38 mg elemental iron) oral tablet 324 mg = 1 tab, Oral, BID, with meals, # 60 tab, 0 Refill(s), Pharmacy: [facility], 170, cm, 08/02/23 12:14:00 EDT, Height, 115.2, kg, 07/28/23 13:18:00 EDT, Weight Dosing Start Date: 08/09/23 Status: Ordered fluticasone 50 mcg/inh nasal spray 2 sprays, Nasal, every morning, # 16 g, 5 Refill(s), Pharmacy: [facility], 170, cm, 08/22/21 15:48:00 EDT, Height/Length Dosing, 118, kg, 08/22/21 15:48:00 EDT, Weight Dosing Start Date: 09/09/21 Status: Ordered furosemide 40 mg oral tablet 80 mg = 2 tab, Oral, every morning, # 180 tab, 3 Refill(s), Pharmacy: [facility], 170, cm, 10/06/22 2:21:00 EDT, Height/Length Dosing, 116.2, kg, 10/06/22 2:21:00 EDT, Weight Dosing Start Date: 04/02/23 Status: Ordered Glucometer Glucometer, test sugars up to three times daily. E11.9 What insurance will cover, Supply, See instructions, # 1 EA, 0 Refill(s), Pharmacy: [facility] Start Date: 04/27/22 Status: Ordered glucomter glucomter, E11.9 uncontrolled. check BS once per day, Supply, See instructions, # 1 EA, 0 Refill(s), Pharmacy: [facility] Start Date: 04/26/22 Status: Ordered insulin glargine 100 units/mL subcutaneous solution See Instructions, Take 60 units daily subcu as directed for 30 days. titrate as needed with pcp, # 30 mL, 11 Refill(s), Pharmacy: [facility], 170, cm, 10/06/22 2:21:00 EDT, Height/Length Dosing, 116.2, kg, 10/06/22 2:21:00 EDT, Weight Dosing Start Date: 05/11/23 Status: Ordered Lancets Lancets, E11.9 Once per day, Supply, See instructions, # 100 EA, 3 Refill(s), Pharmacy: [facility] Start Date: 04/27/22 Status: Ordered losartan 50 mg oral tablet 50 mg = 1 tab, Oral, Daily, for 90 days, # 90 tab, 4 Refill(s), Pharmacy: [facility],170, cm, 10/06/22 2:21:00 EDT, Height/Length Dosing, 116.2, kg, 10/06/22 2:21:00 EDT, Weight Dosing Start Date: 02/06/23 Status: Ordered metFORMIN 1000 mg oral tablet 1,000 mg = 1 tab, Oral, BID, # 180 tab, 3 Refill(s), Pharmacy: [facility], 170, cm, 10/06/22 2:21:00 EDT, Height/Length Dosing, 116.2, kg, 10/06/22 2:21:00 EDT, Weight Dosing Start Date: 04/02/23 Status: Ordered OPTICHAMBER MIS TOMAS OPTICHAMBER MIS TOMAS Start Date: 09/01/21 Status: Ordered pen needles 32G 4mm pen needles 32G 4mm, Use with insulin pen daily, Supply, See instructions, # 1 EA, 4 Refill(s), Pharmacy: [facility] Start Date: 05/14/23 Status: Ordered Request diabetic shoes from [employer] Request diabetic shoes from [employer], Please eval and Tx: 57 y.o. man. Request diabetic shoes. Hx poor control T2DM. A1c 11.6 on 04/04/2022. Venous stasis ulcer inf [facility]. Loss [...] to med malleolus bilat. PT consult at [facility] 11/20 Onychomycosis all toenails. Lossprotective sensation w/monofilament test., Supply, See instructions, # 1 EA, 0 Refill(s) Start Date: 11/16/22 Status: Ordered Test strips Test strips, to go with glucometer E11.9 pt tetsts once daily, Supply, See instructions, # 100 EA, 3 Refill(s), Pharmacy: [facility] Start Date: 04/27/22 Status: Ordered Tylenol 325 mg oral tablet 650 mg = 2 tab, Oral, every 6 hr, PRN pain, mild, # 50 tab, 0 Refill(s), Pharmacy: [facility], 170, cm, 08/02/23 12:14:00 EDT, Height, 115.2, kg, 07/28/23 13:18:00 EDT, Weight Dosing Start Date: 08/09/23 Status: Ordered ULTICARE INSULIN SYRINGE/ 1ML/30G SYN ULTICARE INSULIN SYRINGE/ 1ML/30G SYN Start Date: 08/30/21 Status: Ordered UtiCare Insulin Syringe 30GX5/15 1ML UtiCare Insulin Syringe 30GX5/15 1ML, See Instructions, use 1x daily, # 100 EA, 3 Refill(s), Pharmacy: [facility], dx E11.9, 170, cm, 08/22/21 15:48:00 EDT, Height/Length Dosing, 118, kg, 08/22/21 15:48:00 EDT, Weight Dosing Start Date: 05/22/22 Status: Ordered Mental Status 08/07/23 Eye Opening Response Cushing Spontaneous ly Best Verbal Response Cushing Oriented Best Motor Response Yemi Obeys comman [...] foot Confirmed Active Venous stasis Confirmed Active Results Laboratory List Name Date Glucose POCT 08/09/23 Basic Metabolic Panel (BMP) 08/09/23 CBC w/o Diff 08/09/23 Magnesium Level 08/09/23 Glucose POCT 08/08/23 Glucose POCT 08/08/23 Basic Metabolic Panel (BMP) 08/08/23 CBC w/o Diff 08/08/23 Magnesium Level 08/08/23 CBC w/o Diff 08/07/23 Comprehensive Metabolic Panel (CMP) 08/06 Magnesium Level 08/07/23 ABO/Rh 08/05/23 Antibody Screen Gel 08/05/23 Red Blood Cells 08/05/23 NT- Pro BNP 08/04/23 C-Reactive Protein (CRP) 08/04/23 C-Reactive Protein (CRP) 08/03/23 CEA [facility] 08/03/23 PT/ INR 08/03/23 Vancomycin Level 08/03/23 Surgical Pathology [facility] 08/02/23 C-Reactive Protein (CRP) 08/02/23 Clostridium Difficile 07/31/23 Occult Blood Diagnostic, Feces 07/31/23 .Manual Differential (NCTY) 07/31/23 CBC w/ Diff 07/31/23 Vancomycin Level 07/31/23 ABO/Rh 07/30/23 Antibody Screen Gel 07/30/23 Red Blood Cells 07/30/23 CBC w/ Diff 07/30/23 .Manual Differential (NCTY) 07/30/23 Vancomycin Level 07/29/23 .Manual Differential (NCTY) 07/29/23 CBC w/ Diff 07/29/23 Ferritin 07/29/23 Folate Level 07/29/23 Iron Level and TIBC 07/29/23 Reticulocyte Count Automated 07/29/23 Vitamin B12 Level 07/29/23 SARS-CoV-2 (COVID-19) RNA (ID Now) 4 Urinalysis with Micro if Indicated and C ulture if Indicated 07/28/23 C-Reactive Protein High Sensitivity (CRP HS) 07/28/23 Comprehensive Metabolic Panel (CMP) Lactic Acid 07/28/23 Sedimentation Rate (ESR) 07/28/23 Strep A (ID NOW) 07/28/23 Most recent to oldest [Reference Range]: 1 2 3 WBC [5.0-10.0 x10^3/mcL] 7.2 x10^3/mcL (08/09/23 6:50 AM) 9.8 x10^3/mcL (08/08/23 6:58 AM) 10.8 x10^3/mcL *HI* (08/07/23 6:45 AM) RBC [4.6-6.0 x10^6/mcL] 4.2 x10^6/mcL *LOW* (08/09/23 6:50 AM) 3.9 x10^6/mcL *LOW* (08/08/23 6:58 AM) 4.1 x10^6/mcL *LOW* (08/07/23 6:45 AM) Segs Man [40-75 %] 81 % *HI* (07/31/23 7:00 AM) 80 % *HI* (07/30/23 7:08 AM) 93 % *HI* (07/29/23 7:00 AM) Lymph Man [20-50 %] 5 % *LOW* (07/31/23 7:00 AM) 9 % *LOW* (07/30/23 7:08 AM) 3 % *LOW* (07/29/23 7:00 AM) Rogers Man [2-15 %] 9 % (07/31/23 7:00 AM) 9 % (07/30/23 7:08 AM) 2 % (07/29/23 7:00 AM) Eos Man [1-6 %] 2 % (07/31/23 7:00 AM) 1 % (07/30/23 7:08 AM) 0 % *LOW* (07/29/23 7:00 AM) Prothrombin Time [9.0-11.0 seconds] 10.7 seconds (08/03/23 6:00 AM) INR 1.1 1 *NA* (08/03/23 6:00 AM) BUN [7-18 mg/dL] 5 mg/dL *LOW* (08/09/23 6:50 AM) 4 mg/dL *LOW* (08/08/23 6:58 AM) 6 mg/dL *LOW* (08/07/23 6:45 AM) Glucose POC [74-106 mg/dL] 108 mg/dL *HI* (08/09/23 7:29 AM) 197 mg/dL *HI* (08/08/23 7:31 PM) 157 mg/dL *HI* (08/08/23 4:29 PM) UA Color Yellow (07/28/23 2:11 PM) ABO/Rh Type O NEG *Unknown* (08/05/23 10:23 AM) O NEG *Unknown* (07/30/23 9:00 AM) Glucose Level [74-106 mg/dL] 113 mg/dL *HI* (08/09/23 6:50 AM) 123 mg/dL *HI* (08/08/23 6:58 AM) 138 mg/dL *HI* (08/07/23 6:45 AM) Lymph, Atyp Man 1 % *NA* (07/29/23 7:00 AM) Potassium Level [3.5-5.1 mmol/L] 3.6 mmol/L (08/09/23 6:50 AM) 3.6 mmol/L (08/08/23 6:58 AM) 4.1 mmol/L (08/07/23 6:45 AM) MCV [80.0-96.0 fL] 75.7 fL *LOW* (08/09/23 6:50 AM) 75.6 fL *LOW* (08/08/23 6:58 AM) 75.6 fL *LOW* (08/07/23 6:45 AM) UA Urobilinogen Normal (07/28/23 2:11 PM) RBC Morph Abnormal (07/31/23 7:00 AM) Abnormal (07/30/23 7:08 AM) Abnormal (07/29/23 7:00 AM) UA Bili [Negative] Negative (07/28/23 2:11 PM) CRP [<=10.0 mg/L] 42.1 mg/L *HI* (08/04/23 6:50 AM) 76.2 mg/L *HI* (08/03/23 6:00 AM) 126.9 mg/L *HI* (08/02/23 7:07 AM) UA Ketones Negative (07/28/23 2:11 PM) AST [15-37 unit/L] 10 unit/L *LOW* (08/07/23 6:45 AM) 31 unit/L (07/28/23 1:50 PM) ALT [16-63 unit/L] 15 unit/L *LOW* (08/07/23 6:45 AM) 37 unit/L (07/28/23 1:50 PM) MCHC [31.0-35.0 g/dL] 29.3 g/dL *LOW* (08/09/23 6:50 AM) 29.0 g/dL *LOW* (08/08/23 6:58 AM) 28.7 g/dL *LOW* (08/07/23 6:45 AM) Sodium Level [136-145 mmol/L] 138 mmol/L (08/09/23 6:50 AM) 137 mmol/L (08/08/23 6:58 AM) 140 mmol/L (08/07/23 6:45 AM) Folate Level [>=8.6 ng/mL] 14.2 ng/mL 2 (07/29/23 7:00 AM) UA Leuk Est Negative (07/28/23 2:11 PM) Vancomycin Level Random [18-26 ug/mL] 9 ug/mL *LOW* (08/03/23 6:00 AM) 29 ug/mL 3 *CRIT* (07/31/23 7:00 AM) 8 ug/mL *LOW* (07/29/23 2:57 PM) UA Nitrite Negative (07/28/23 2:11 PM) UA Glucose [Negative] 3+ *ABN* (07/28/23 2:11 PM) Hct [41.0-51.0 %] 32.1 % *LOW* (08/09/23 6:50 AM) 29.7 % *LOW* (08/08/23 6:58 AM) 30.7 % *LOW* (08/07/23 6:45 AM) Microcyte Moderate (07/31/23 7:00 AM) Moderate (07/30/23 7:08 AM) Moderate (07/29/23 7:00 AM) Hypochromia Moderate (07/31/23 7:00 AM) Moderate (07/30/23 7:08 AM) Moderate (07/29/23 7:00 AM) Calcium Level [8.5-10.1 mg/dL] 9.1 mg/dL (08/09/23 6:50 AM) 8.3 mg/dL *LOW* (08/08/23 6:58 AM) 7.9 mg/dL *LOW* (08/07/23 6:45 AM) Albumin Level [3.4-5.0 g/dL] 2.0 g/dL *LOW* (08/07/23 6:45 AM) 3.1 g/dL *LOW* (07/28/23 1:50 PM) Protein Total [6.4-8.2 g/dL] 5.7 g/dL *LOW* (08/07/23 6:45 AM) 7.2 g/dL (07/28/23 1:50 PM) UA Protein Negative (07/28/23 2:11 PM) Iron Sat [20-55 %] 2 % 4 *LOW* (07/29/23 7:00 AM) Poik Small (07/31/23 7:00 AM) Small (07/30/23 7:08 AM) Rare (07/29/23 7:00 AM) MCH [26.0-32.0 pg] 22.2 pg *LOW* (08/09/23 6:50 AM) 21.9 pg *LOW* (08/08/23 6:58 AM) 21.7 pg *LOW* (08/07/23 6:45 AM) Magnesium Level [1.8-2.4 mg/dL] 1.7 mg/dL *LOW* (08/09/23 6:50 AM) 1.7 mg/dL *LOW* (08/08/23 6:58 AM) 1.8 mg/dL (08/07/23 6:45 AM) Bilirubin Total [0.2-1.0 mg/dL] 0.5 mg/dL (08/07/23 6:45 AM) 0.6 mg/dL (07/28/23 1:50 PM) Hgb [14.0-18.0 g/dL] 9.4 g/dL *LOW* (08/09/23 6:50 AM) 8.6 g/dL *LOW* (08/08/23 6:58 AM) 8.8 g/dL *LOW* (08/07/23 6:45 AM) B12 Level [193-986 pg/mL] 339 pg/mL (07/29/23 7:00 AM) Alk Phos [46-146 unit/L] 76 unit/L (08/07/23 6:45 AM) 118 unit/L (07/28/23 1:50 PM) UA Blood Negative (07/28/23 2:11 PM) Band Man [0-5 %] 0 % (07/31/23 7:00 AM) 0 % (07/30/23 7:08 AM) 1 % (07/29/23 7:00 AM) Teardrop Cells Rare (07/30/23 7:08 AM) UA Spec Grav 1.010 *NA* (07/28/23 2:11 PM) Ferritin Level [26-388 ng/mL] 51 ng/mL (07/29/23 7:00 AM) Polychrom Rare (07/31/23 7:00 AM) Rare (07/30/23 7:08 AM) Rare (07/29/23 7:00 AM) Platelets [130-450 x10^3/mcL] 310 x10^3/mcL (08/09/23 6:50 AM) 299 x10^3/mcL (08/08/23 6:58 AM) 308 x10^3/mcL (08/07/23 6:45 AM) CO2 [21-32 mmol/L] 30 mmol/L (08/09/23 6:50 AM) 27 mmol/L (08/08/23 6:58 AM) 28 mmol/L (08/07/23 6:45 AM) TIBC [250-450 mcg/dL] 400 mcg/dL 5 (07/29/23 7:00 AM) Reticulocyte % [0.5-2.4 %] 1.7 % (07/29/23 7:00 AM) Lactic Acid Lvl [0.7-2.0 mmol/L] 1.7 mmol/L (07/28/23 1:50 PM) Iron [65-175 mcg/dL] 10 mcg/dL 6 *LOW* (07/29/23 7:00 AM) UA pH 5.0 *NA* (07/28/23 2:11 PM) eGFR Non-AA [>=60] 104 (08/09/23 6:50 AM) 107 (08/08/23 6:58 AM) 109 (08/07/23 6:45 AM) eGFR AA [>=60] 104 (08/09/23 6:50 AM) 107 (08/08/23 6:58 AM) 109 (08/07/23 6:45 AM) UA Appear Clear (07/28/23 2:11 PM) NT-proBNP [0-125 pg/mL] 230 pg/mL *HI* (08/04/23 7:00 AM) Chloride Level [98-107 mmol/L] 101 mmol/L (08/09/23 6:50 AM) 102 mmol/L (08/08/23 6:58 AM) 105 mmol/L (08/07/23 6:45 AM) RBC Product Ready Done (08/05/23 10:23 AM) Done (07/30/23 9:00 AM) RDW-CV [11.5-14.5 %] 24.2 % *HI* (08/09/23 6:50 AM) 23.9 % *HI* (08/08/23 6:58 AM) 23.7 % *HI* (08/07/23 6:45 AM) Occult Bld Stl I Positive *ABN* (07/31/23 12:45 PM) Occult Bld Stl ll Negative (07/31/23 12:45 PM) Occult Bld Stl lll Negative (07/31/23 12:45 PM) Ovalocytes Rare (07/31/23 7:00 AM) Rare (07/30/23 7:08 AM) Rare (07/29/23 7:00 AM) CRP High Sens [0.00-3.00 mg/L] 43.16 mg/L 7 *HI* (07/28/23 1:50 PM) Slide Review Man Diff (07/31/23 7:00 AM) Man Diff (07/30/23 7:08 AM) Man Diff (07/29/23 7:00 AM) Manuela Brink Dt. 03-AUG-2023 *Unknown* (08/03/23 6:00 AM) 31-JUL-2023 *Unknown* (07/31/23 7:00 AM) 29-JUL-2023 *Unknown* (07/29/23 2:57 PM) Manuela Brink Tm. 0500 *NA* (08/03/23 6:00 AM) 0400 *NA* (07/31/23 7:00 AM) 0400 *NA* (07/29/23 2:57 PM) Abs Neut Man 9.7 x10^3/mcL *NA* (07/31/23 7:00 AM) 8.2 x10^3/mcL *NA* (07/30/23 7:08 AM) 14.6 x10^3/mcL *NA* (07/29/23 7:00 AM) Clostridium Difficile Toxin [Negative] Negative (07/31/23 1:33 PM) Anisocyte Moderate (07/31/23 7:00 AM) Moderate (07/30/23 7:08 AM) Moderate (07/29/23 7:00 AM) Strep A -IDNOW [Not Detected] Not Detected (07/28/23 1:50 PM) Creatinine Level [0.70-1.30 mg/dL] 0.74 mg/dL (08/09/23 6:50 AM) 0.69 mg/dL *LOW* (08/08/23 6:58 AM) 0.64 mg/dL *LOW* (08/07/23 6:45 AM) Antibody Screen Gel Negative ABSC (08/05/23 10:23 AM) Negative ABSC (07/30/23 9:00 AM) SARS-CoV-2 (COVID-19) RNA (ID Now) [Not Detected] Not Detected (07/28/23 4:04 PM) CEA [facility] [See Note ng/mL] 51.3 ng/mL 8 *NA* (08/03/23 6:00 AM) Path Report [facility] (See below) 9 *NA* (08/02/23 3:56 PM) Baso Man [0-1 %] 3 % *HI* (07/31/23 7:00 AM) 1 % (07/30/23 7:08 AM) 0 % (07/29/23 7:00 AM) ESR, Westergren [0-20 mm/hr] 15 mm/hr (07/28/23 1:50 PM) 1Interpretive Data: INR 2-2.5 Prophylaxis: Short term DVT INR 2-3 Prophylaxis: hip and femur surgery Therapy: DVT (3 mos) PE (3-6 mos) TIA (correction) Atr Fib (correction) Syst. emb post TN Mitral Stenosis with emboli (correction) Tissue prosthetic valves (3 mos min) INR 3-4.5 Therapy: recurrent DVT, PE (correction) Prosthetic heart valves (correction) 2Interpretive Data: Normal: >8.6 ng/mL Deficient: <3.0 ng/mL The results of this assay can be falsely elevated due to the consumption of Biotin. Please instructpatients to discontinue the use of vitamins or supplements that contain Biotin 12 hours before blood collection. 3Result Comment: Called to and verbally verified by Yissel CastilloM/S) at 07/31/2023 08:31:26 EDT PJB_. 4Result Comment: Collection date/time has been modified to: 07:00:00. Previous collection date/time: 08:30:00. 5Result Comment: Collection date/time has been modified to: 07:00:00. Previous collection date/time: 08:30:00. 6Result Comment: Collection date/time has been modified to: 07:00:00. Previous collection date/time: 08:30:00. 7Interpretive Data: Risk Level Age/Sex Range Units Less Risk All <1.0 mg/L Average Risk All 1.0 - 3.0 mg/L High Risk All >3.0 mg/L *Indeterminate All >10.0 mg/L *May be an indication of inflammation or infection. 8Result Comment: % Distribution of CEA (ng/mL): 0.0 - 2.5 in 98.2% of Nonsmokers and 87.3% of Smokers 2.6 - 5 in 1.8% of Nonsmokers and 8% of Smokers 5.1 - 10.1 in 4.7% of Smokers NOTE: Serum CEA concentration should not be interpeted as absolute evidence for the presence or absence of malignant disease. Assayed on [employer] XPT using chemiluminescent technology. Values obtained by different assay methods cannot be used interchangeably. Test performed [place] [address] 9Result Comment: NOTE TO PATIENT The following pathology results have been interpreted by your pathologist and may be available to you before your health provider has had the opportunity to review them. Please allow time for your provider to receive these results and explore management options, if applicable. AP FINAL DIAGNOSIS A. 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 - Negative for invasive adenocarcinoma. - Deeper sections x3 examined. - See comment. FINAL DIAGNOSIS COMMENT The specimen is superficial and limited in order to be adequately evaluated for invasive adenocarcinoma. The presence of high grade dysplasia and a lamina propria stromal response may be considered worrisome but not diagnostic features in the clinical setting of a mass. Further biopsies of the lesion may be helpful. Steeping Press Tender slides of this case were reviewed at the gastrointestinal/liver intradepartmental consultation conference. (AZS, AMS) ATTESTATION By the signature below, the attending physician certifies that they have 1) personally conducted a gross and/or microscopic examination of the described specimen(s), and/or personally interpreted the results of laboratory testing of the described specimen(s), and 2) personally rendered or confirmed the above diagnosis. at 1626 CLINICAL HISTORY Anemia, cecal mass GROSS DESCRIPTION A. Received in formalin labelled with proper patient identification (initials S, C) and cecal mass are 2 lea tissue fragments (0.5 x 0.2 x 0.1 cm in aggregate). Entirely submitted in A1. LYNNE RITTER(ASCP) 08/03/2023 8:34 AP PERFORMING LAB [facility] End of Report Disclaimers: 1) Reports generated via electronic interface contain original data; however they are lacking the format of the original report. Caution should be taken when reading/interpreting unformatted reports. 2) Please reference the paper report if the text (End of Report) is not displayed. [id number]: Cecal Mass\E\.br\E\One Container Test performed or referred by The [address] [id number] Orders for Microbiology Reports Name Date Wound Culture 08/01/23 Blood Culture 07/29/23 Blood Culture 07/29/23 MRSA Screen Culture 07/28/23 Blood Culture 07/28/23 Urine Culture 07/28/23 Blood Culture 07/28/23 Microbiology Reports TEST:Wound Culture STATUS:Auth (Verified) BODY SITE:Toe SOURCE:Exudate COLLECTED DATE/TIME:08/01/23 9:48 AM FINAL REPORT Moderate Staphylococcus arlettae STAIN REPORT Rare epithelial cells Rare Gram Positive Cocci ORGANISM:Staphylococcus arlettae Susceptibilty: Staphylococcus arlettae Tested Drug MIGUELINA Dilution MIGUELINA Interpretati on Vancomycin 1 S Trimethoprim/Sulfa <=0.5/9.5 S Tetracycline <=4 S Rifampin <=1 S Penicillin >2 R Oxacillin >2 R Meropenem 4 R Linezolid <=1 S Levofloxacin <=1 S Imipenem <=4 R Gentamicin <=4 S Daptomycin <=0.5 S Clindamycin 2 R* Ciprofloxacin <=1 S Cephalothin <=8 R Ceftriaxone >32 R Cefepime >16 R Cefazolin <=8 R Azithromycin >4 R Ampicillin/Sulbactam <=8/4 R Ampicillin 8 R Amoxicillin/Clavulanate <=4/2 R TEST:Blood Culture STATUS:Auth (Verified) BODY SITE: SOURCE:Blood COLLECTED DATE/TIME:07/29/23 6:01 PM FINAL REPORT No growth at 5 days. TEST:Blood Culture STATUS:Auth (Verified) BODY SITE: SOURCE:Blood COLLECTED DATE/TIME:07/29/23 5:56 PM FINAL REPORT No growth at 5 days. TEST:MRSA Screen Culture STATUS:Auth (Verified) BODY SITE: SOURCE:Nares COLLECTED DATE/TIME:07/28/23 8:52 PM FINAL REPORT Negative MRSA screen ORGANISM:Staphylococcus epidermidis Susceptibilty: Staphylococcus epidermidis Tested Drug TEST:Blood Culture STATUS:Auth (Verified) BODY SITE: SOURCE:Blood COLLECTED DATE/TIME:07/28/23 3:15 PM FINAL REPORT No growth at 5 days. TEST:Urine Culture STATUS:Auth (Verified) BODY SITE: SOURCE:Urine COLLECTED DATE/TIME:07/28/23 2:11 PM FINAL REPORT <10,000 cfu/ml Mixed Gram Positive Carol TEST:Blood Culture STATUS:Auth (Verified) BODY SITE: SOURCE:Blood COLLECTED DATE/TIME:07/28/23 12:45 PM FINAL REPORT No growth at 5 days. Vital Signs Most recent to oldest [Reference Range]: 1 2 3 Temperature Tympanic [36.6-38.1 Deg C] 37.7 Deg C (08/01/23 5:53 AM) 38.6 Deg C *HI* (08/01/23 3:48 AM) 38.8 Deg C *HI* (08/01/23 2:36 AM) Temperature Tympanic (DegF) [97.9-100.6 Deg F] 99.86 Deg F (08/01/23 5:53 AM) 101.48 Deg F *HI* (08/01/23 3:48 AM) 101.84 Deg F *HI* (08/01/23 2:36 AM) Temperature Rectal [36.3-37.8 Deg C] 39.8 Deg C *HI* (07/29/23 5:10 PM) Temperature Temporal Artery [36-38 Deg C] 36.3 Deg C (08/09/23 7:25 AM) 36.3 Deg C (08/09/23 12:12 AM) 36.2 Deg C (08/08/23 7:35 PM) Temperature Temporal Artery (DegF) [97.3-100 Deg F] 96.98 Deg F *LOW* (08/08/23 11:25 AM) 96.62 Deg F *LOW* (08/06/23 1:55 PM) 96.44 Deg F *LOW* (08/06/23 1:40 PM) Peripheral Pulse Rate [60-100 bpm] 52 bpm *LOW* (08/09/23 7:25 AM) 52 bpm *LOW* (08/09/23 12:12 AM) 50 bpm *LOW* (08/08/23 7:35 PM) Heart Rate Monitored [60-100 bpm] 75 bpm (08/06/23 3:15 PM) 75 bpm (08/06/23 3:00 PM) 73 bpm (08/06/23 2:50 PM) Respiratory Rate [12-24 br/min] 18 br/min (08/09/23 7:25 AM) 18 br/min (08/09/23 12:12 AM) 18 br/min (08/08/23 7:35 PM) Blood Pressure [90-140/60-90 mmHg] 134/71mmHg (08/09/23 7:25 AM) 163/83mmHg *HI* (08/09/23 12:12 AM) 138/65mmHg (08/08/23 7:35 PM) Mean Arterial Pressure, Cuff [65-140 mmHg] 87 mmHg (08/08/23 11:25 AM) 97 mmHg (08/06/23 8:15 PM) 109 mmHg (08/06/23 3:15 PM) Mean Arterial Pressure Cuff 90 mmHg (08/09/23 7:25 AM) 104 mmHg (08/09/23 12:12 AM) 86 mmHg (08/08/23 7:35 PM) Blood Pressure Location Right arm (08/07/23 3:42 AM) Left arm (08/01/23 1:35 PM) Left arm (08/01/23 12:50 PM) Blood Pressure Method Automatic (08/07/23 3:42 AM) Automatic (08/01/23 1:35 PM) Automatic (08/01/23 12:50 PM) Weight 120.3 kg (08/09/23 7:25 AM) 123.85 kg (08/08/23 8:49 AM) 121.9 kg (08/07/23 7:57 AM) Weight Measured (lbs) 260.366 lb 1 (08/01/23 7:45 AM) 254.634 lb (07/29/23 10:36 AM) Weight Dosing 115.200 kg (07/28/23 1:13 PM) Height 170 cm (08/02/23 12:14 PM) 170 cm (07/28/23 8:58 PM) BSA Measured 2.33 m2 (07/28/23 8:58 PM) BSA Estimated 0 m2 (07/28/23 8:58 PM) Body Mass Index 39.86 kg/m2 (07/28/23 8:58 PM) Body Mass Index Estimated 39.86 kg/m2 (07/28/23 1:13 PM) Height/Length Estimated 170 cm (07/28/23 1:13 PM) 1Result Comment: standing weight Social History Social History Type Response Tobacco Current everyday tob acco user Tobacco Use:. 1.5 packs a day per day. Sex Male Hospital Discharge Instructions Patient Education 08/09/2023 07:32:33 Osteomyelitis, Adult Osteomyelitis, Adult Bone infections, also called osteomyelitis,occur when bacteria or other germs get inside a bone. This can happen if you have an infection in another part of your body that spreads through your blood.It can also happen if you have a wound or a broken bone (fracture) that breaks the skin. A wound ora fracture can allow germs from your skin or from outside of your body to spread to your bone. Bone infections need to be treated quickly to: ??? Prevent bone damage. ??? Prevent the infection from spreading to other areas of your body. What are the causes? Most bone infections are caused by bacteria. The most common bacteria is one found on the skin (staphylococcus). Bone infections can also be caused by other germs, such as viruses and funguses. What increases the risk? You are more likely to develop this condition if: ??? You recently had surgery, especially bone or joint surgery. ??? You have had an injury, such as stepping on a nail or having a fracture that exposes bones through the skin. ??? You have a long-term (chronic) disease, such as: ??? Diabetes. ??? HIV (human immunodeficiency virus). ??? Rheumatoid arthritis. ??? Sickle cell anemia. ??? Kidney disease that requires dialysis. ??? You have a condition that affects your body's defense system (immune system) or you take medicines that block or weaken the immune system. ??? You have a condition that reduces your blood flow. ??? You have an artificial joint. ??? You have had a joint or bone repaired with plates or screws. ??? You use IV drugs. What are the signs or symptoms? Symptoms vary depending on the type and location of your infection. Common symptoms of bone infections include: ??? Fever and chills. ??? Skin redness and warmth. ??? Swelling. ??? Pain and stiffness. ??? Drainage of fluid or pus near the infection. How is this diagnosed? This condition may be diagnosed based on: ??? Your symptoms and medical history. ??? A physical exam. ??? Tests, such as: ??? A sample of tissue, fluid, or blood taken to be examined under a microscope. ??? Pus or discharge swabbed from a wound for testing. This is to identify the type of germs and todetermine what type of medicine will kill them. ??? Blood tests. ??? Imaging studies, including X-rays, MRI, CT scan, bone scan, or ultrasound. How is this treated? Treatment for this condition depends on the cause and type of infection. Antibiotic medicines are usually the first treatment for a bone infection. This may be done in a hospital at first. You may have to continue IV antibiotics at home or take antibiotics by mouth for several weeks after that. Other treatments may include surgery to: ??? Remove or dying tissue from a bone. ??? Remove an infected artificial joint. ??? Remove infected plates or screws that were used to repair a broken bone. Follow these instructions at home: Medicines ??? Take [id number] and prescription medicines as told by your health care provider. Finish all antibiotic medicine even if you start to feel better. ??? Follow instructions from your health care provider about how to take IV antibiotics at home. You may need to have a nurse come to your home to give you the IV antibiotics. Managing pain, stiffness, and swelling If directed, put ice on the affected area. To do this: ??? Put ice in a plastic bag. ??? Place a towel between your skin and the bag. ??? Leave the ice on for 20 minutes, 2???3 times a day. General instructions ??? Ask your health care provider if you have any restrictions on your activities. ??? Do not use any products that contain nicotine or tobacco, such as cigarettes, e-cigarettes, andchewing tobacco. If you need help quitting, ask your health care provider. ??? Keep all follow-up visits as told by your health care provider. This is important. How is this prevented? Wash your hands often to stop the spread of germs. Wash your hands for at least 20 seconds withsoap and water. If soap and water are not available, use hand tile molder hand. ??? Keep any open areas, cuts, or wounds clean. Apply a clean bandage after cleaning the area. ??? Check wounds frequently for signs of infections. Signs of infection include redness, swelling, warmth, pus, or a bad smell. ??? Wear proper footwear to avoid injuries to the feet. Contact a health care provider if: ??? You develop a fever or chills. ??? You have redness, warmth, pain, or swelling that returns after treatment. Get help right away if: ??? You have rapid breathing or you have trouble breathing. ??? You have chest pain. ??? You cannot drink fluids or make urine. ??? The affected area swells, changes color, or turns blue. ??? You have numbness or severe pain in the affected area. These symptoms may represent a serious problem that is an emergency. Do not wait to see if the symptoms will go away. Get medical help right away. Call your local emergency services (911 in the [place] Do not drive yourself to the hospital. Summary ??? Bone infections, also called osteomyelitis,occur when bacteria or other germs get inside a bone. ??? You are more likely to get this type of infection if you have a condition that lowers your ability to fight infections. You are also likely to get this condition if you take medicines that block or weaken the immune system. ??? Most bone infections are caused by bacteria. They can also be caused by other germs, such as viruses and funguses. ??? Treatment for this condition usually starts with taking antibiotics. Further treatment depends on the cause and type of infection. This information is not intended to replace advice given to you by your health care provider. Make sure you discuss any questions you have with your health care provider. Document Revised: 05/27/2020 Document Reviewed: 05/27/2020 Elsevier Patient Education ?? 2022 [employer]. Follow Up Care 07/28/2023 13:11:59 With:[employer] Address: When:08/16/2023 14:00:00 With:Marcelo Brar MD Address: [address] [place] [address] [place] [address]- When:1 month Discharge instructions * Nilam Mas RN: PERFORM Event Display: Discharge Instructions Authored Date: [id number] MELANIECALVIN BROCK :1965 Age:58 years Sex:Male Visit Date:07/28/2023 Primary Care Physician: Marcelo Brar MD Hospital Discharge Instructions We would like to thank you for allowing us to assist you with your healthcare needs. The following includes patient education materials and information regarding your injury/illness. Your Next Steps Discharge Orders Discharge Diet Instruction, Diabetic Diet Scheduled Future Appointments Sunday 1:15 PM EDT ?? With: Fuentes Ellison DO Where: [facility] [address] [place] [id number] Status: Confirmed Sunday 9:00 AM EDT ?? With: Marcelo Brar MD Where: [facility] [address] [id number] Status: Confirmed Follow Up Appointments Follow Up with??Marcelo Brar MD When:??Within 1 month Where: [address] [place] [address] [place] [address]- Follow Up with??[employer] When:??08/16/2023 03:00 PM EDT The Following Services Have Been Arranged for You Nursing Anticipated ADL Needs - None Special Serv & Comm Res, Anticipated - None Special Services and Community Resources - None Medications What How Much When Why Instructions Next Dose New ciprofloxacin (ciprofloxacin 500 mg oral tablet) 1 tab Oral (given by mouth) Every 12 hours Duration: 28 Days Pickup at [facility] 08/08 PM Changed insulin glargine (insulin glargine 100 units/ mL subcutaneous solution) See instructions Take 90 units daily subcu ??as directed for 30 days. ?? 08/08 PM Unchanged albuterol (Albuterol (Eqv-ProAir HFA) 90 mcg/ inh inhalation aerosol) 2 Puffs Inhale (breathe in) Every 4 hours as needed for other (see comment) as needed ?? resume Unchanged ARIPiprazole (ARIPiprazole 10 mg oral tablet) 1 tab Oral (given by mouth) Every day for 28 days ?? 08/09 AM Unchanged aspirin (aspirin 81 mg oral tablet, chewable) 1 tab Oral (given by mouth) Every day 08/09 AM Unchanged busPIRone (busPIRone 15 mg oral tablet) 1 tab Oral (given by mouth) Every day for 28 days ?? 08/09 AM Unchanged dapagliflozin (Farxiga 5 mg oral tablet) 1 tab Oral (given by mouth) Every day resume Unchanged fluticasone nasal (fluticasone 50 mcg/ inh nasal spray) 2 Sprays Nasal (into the nose) Every morning resume Unchanged furosemide (furosemide 40 mg oral tablet) 2 tab Oral (given by mouth) Every morning 08/09 AM Unchanged losartan (losartan 50 mg oral tablet) 1 tab Oral (given by mouth) Every day for 90 days ?? resume Unchanged metFORMIN (metFORMIN 1000 mg oral tablet) 1 tab Oral (given by mouth) 2 times a day resume Pharmacy Information [facility]: [address] [place], [place] [id number] [phone] ?? What How Much When Comments Stop Taking dulaglutide (Trulicity Pen 1.5 mg/ 0.5 mL subcutaneous solution) 0.5 Milliliters Subcutaneous (under the skin) Every week Your Summary Your Care Team Admitting Physician - Teena English MD Attending Physician - Teena English MD Consulting Physician - Calvin Mayfield DO Primary Care Physician - Marcelo Brar MD Your Diagnosis Colon cancer Osteomyelitis of toe Diabetic ulcer of left foot Colitis Alcohol use disorder Schizophrenia Pulmonary nodule Type 2 diabetes mellitus Anemia Anemia Anemia Discharge Vitals Temperature??(Temporal Artery) 97.3 ??F (36.3 ??C) Heart Rate??(Peripheral) 52 Respiratory Rate?? 18 Blood Pressure?? 134/71?? SpO2?? 100% Weight?? 265.26 lb (120.3 kg) Education Materials Osteomyelitis, Adult Bone infections, also called osteomyelitis,occur when bacteria or other germs get inside a bone. This can happen if you have an infection in another part of your body that spreads through your blood.It can also happen if you have a wound or a broken bone (fracture) that breaks the skin. A wound ora fracture can allow germs from your skin or from outside of your body to spread to your bone. Bone infections need to be treated quickly to: ? Prevent bone damage. ? Prevent the infection from spreading to other areas of your body. What are the causes? Most bone infections are caused by bacteria. The most common bacteria is one found on the skin (staphylococcus). Bone infections can also be caused by other germs, such as viruses and funguses. What increases the risk? You are more likely to develop this condition if: ? You recently had surgery, especially bone or joint surgery. ? You have had an injury, such as stepping on a nail or having a fracture that exposes bones through the skin. ? You have a long-term (chronic) disease, such as: ? Diabetes. ? HIV (human immunodeficiency virus). ? Rheumatoid arthritis. ? Sickle cell anemia. ? Kidney disease that requires dialysis. ? You have a condition that affects your body's defense system (immune system) or you take medicines that block or weaken the immune system. ? You have a condition that reduces your blood flow. ? You have an artificial joint. ? You have had a joint or bone repaired with plates or screws. ? You use IV drugs. What are the signs or symptoms? Symptoms vary depending on the type and location of your infection. Common symptoms of bone infections include: ? Fever and chills. ? Skin redness and warmth. ? Swelling. ? Pain and stiffness. ? Drainage of fluid or pus near the infection. How is this diagnosed? This condition may be diagnosed based on: ? Your symptoms and medical history. ? A physical exam. ? Tests, such as: ? A sample of tissue, fluid, or blood taken to be examined under a microscope. ? Pus or discharge swabbed from a wound for testing. This is to identify the type of germs and to determine what type of medicine will kill them. ? Blood tests. ? Imaging studies, including X-rays, MRI, CT scan, bone scan, or ultrasound. How is this treated? Treatment for this condition depends on the cause and type of infection. Antibiotic medicines are usually the first treatment for a bone infection. This may be done in a hospital at first. You may have to continue IV antibiotics at home or take antibiotics by mouth for several weeks after that. Other treatments may include surgery to: ? Remove or dying tissue from a bone. ? Remove an infected artificial joint. ? Remove infected plates or screws that were used to repair a broken bone. Follow these instructions at home: Medicines ? Take xeqc-wel-ovyqeox and prescription medicines as told by your health care provider. Finish all antibiotic medicine even if you start to feel better. ? Follow instructions from your health care provider about how to take IV antibiotics at home. You may need to have a nurse come to your home to give you the IV antibiotics. Managing pain, stiffness, and swelling If directed, put ice on the affected area. To do this: ? Put ice in a plastic bag. ? Place a towel between your skin and the bag. ? Leave the ice on for 20 minutes, 2???3 times a day. General instructions ? Ask your health care provider if you have any restrictions on your activities. ? Do not use any products that contain nicotine or tobacco, such as cigarettes, e- cigarettes, and chewing tobacco. If you need help quitting, ask your health care provider. ? Keep all follow-up visits as told by your health care provider. This is important. How is this prevented? Wash your hands often to stop the spread of germs. Wash your hands for at least 20 seconds with soap and water. If soap and water are not available, use hand tile molder hand. ? Keep any open areas, cuts, or wounds clean. Apply a clean bandage after cleaning the area. ? Check wounds frequently for signs of infections. Signs of infection include redness, swelling, warmth, pus, or a bad smell. ? Wear proper footwear to avoid injuries to the feet. Contact a health care provider if: ? You develop a fever or chills. ? You have redness, warmth, pain, or swelling that returns after treatment. Get help right away if: ? You have rapid breathing or you have trouble breathing. ? You have chest pain. ? You cannot drink fluids or make urine. ? The affected area swells, changes color, or turns blue. ? You have numbness or severe pain in the affected area. These symptoms may represent a serious problem that is an emergency. Do not wait to see if the symptoms will go away. Get medical help right away. Call your local emergency services (911 in the [place] Do not drive yourself to the hospital. Summary ? Bone infections, also called osteomyelitis,occur when bacteria or other germs get inside a bone. ? You are more likely to get this type of infection if you have a condition that lowers your ability to fight infections. You are also likely to get this condition if you take medicines that block or weaken the immune system. ? Most bone infections are caused by bacteria. They can also be caused by other germs, such as viruses and funguses. ? Treatment for this condition usually starts with taking antibiotics. Further treatment depends on the cause and type of infection. This information is not intended to replace advice given to you by your health care provider. Make sure you discuss any questions you have with your health care provider. Document Revised: 05/27/2020 Document Reviewed: 05/27/2020 Elsevier Patient Education ?? 2022 [employer] Patient/Steeping Press Tender Signature Patient Name:CALVIN ARDON I have received this information and my questions have been answered. Patient/Steeping Press Tender Name: Patient/Steeping Press Tender Signature: Relationship to Patient: Witness Name/Signature: Date: Electronically Signed on: 08/09/2023 09:18 EDTSigned by:AFIA Consult note * Fuentes Ellison DO: PERFORM Event Display: Consultation Note Generic Authored Date: [id number] CALVIN ARDON :1965 Age:58 years Sex:Male Visit Date:07/28/2023 Primary Care Physician: Marcelo Brar MD Chief Complaint sepsis, toe ulcer, CIWA Reason for Consultation OM left great toe History of Present Illness ??58 year old male patient with diabetic foot ulcer on left great toe with distal phalangeal OM seen on MRI.?? He also has cellulitis of the left lower extremity, alcohol use and alcohol withdrawal, anemia, colitis, alcohol abuse, insulin DM. He follows at [place] with podiatry for his foot ulcers and wounds. He states he has some sensation in his feet. He is not sure how long he has had the ulcer on his left toe but notes his feet feel more dry. It is not causing him much pain currently. He has had mepilex over toes ulcers for woudn care. He has had persistent swelling of lower extremity.? No prior colonoscopy per patient. No blood in stool. No abdominal pain. He had fevers upon arrival but this resolved in hospital.?? He did have one episode of diarrhea before being admitted. but states he had a good bowel movement here.? CT Chest/Abd/Pelvis w/ Contrast PROCEDURE INFORMATION:?? Exam: CT Chest With Contrast; Diagnostic?? Exam date and time: 07/28/2023 4:43 PM?? Age: 58 years old?? Clinical indication: Fever and leukocytosis with no obvious source? TECHNIQUE:?? Imaging protocol: Diagnostic computed tomography of the chest with?? contrast.?? Radiation optimization: All CT scans at this facility use at least?? one of these dose optimization techniques: automated exposure?? control; mA and/or kV adjustment per patient size (includes targeted?? exams where dose is matched to clinical indication); or iterative?? reconstruction.?? Contrast material: OMNI.350; Contrast volume: 90 ml; Contrast route:?? INTRAVENOUS (IV); ? COMPARISON:?? CR XR CHEST 1 VW 07/28/2023 2:10 PM? FINDINGS:?? Lungs: A few pulmonary nodules the largest measuring approximately 9?? mm in the subpleural right lower lobe series 4, image 38.?? Pleural spaces: No pneumothorax or pleural effusion.?? Heart: No pericardial effusion.?? Lymph nodes: No enlarged lymph nodes.?? Vasculature: ??No aortic aneurysm. ? Bones/joints: No acute findings?? Soft tissues: No acute findings.? IMPRESSION:?? No acute chest findings. ?? Pulmonary nodules measuring up to 9 mm. ??Recommend CT Chest at 3?? months, PET/CT, or biopsy. (Reference: Hemanth) ? PROCEDURE INFORMATION:?? Exam: CT Abdomen And Pelvis With Contrast?? Exam date and time: 07/28/2023 4:43 PM?? Age: 58 years old?? Clinical indication: Fever and leukocytosis with no obvious source? TECHNIQUE:?? Imaging protocol: Computed tomography of the abdomen and pelvis with?? contrast.?? Radiation optimization: All CT scans at this facility use at least?? one of these dose optimization techniques: automated exposure?? control; mA and/or kV adjustment per patient size (includes targeted?? exams where dose is matched to clinical indication); or iterative?? reconstruction.?? Contrast material: OMNI.350; Contrast volume: 90 ml; Contrast route:?? INTRAVENOUS (IV); ? COMPARISON:?? CR XR HIP LT MIN 2V AND PELVIS 10/06/2022 2:47 AM? FINDINGS:?? Liver: No acute findings.?? Gallbladder and bile ducts: No acute findings.?? Pancreas: No ductal dilation.?? Spleen: No splenomegaly.?? Adrenal glands: No mass.?? Kidneys and ureters: No stones or hydronephrosis.?? Stomach and bowel: No obstruction. ??Inflammatory change of the cecum?? and ascending colon with wall thickening and surrounding fat?? stranding. No loculated collection. ??No significant diverticulosis. Appendix: ??Appendix not definitively visualized.? Intraperitoneal space: No free air. No significant fluid collection.?? Vasculature: No abdominal aortic aneurysm.?? Lymph nodes: ??Enlarged lymph nodes adjacent to the cecum around?? series 2, image 687 measuring 2 cm. ??Enlarged left internal and?? external iliac nodes and left inguinal nodes. Urinary bladder: ??No acute findings.?? Reproductive: ??Prostatomegaly.?? Bones/joints: No acute findings.?? Soft tissues: ??Small right groin intramuscular lipoma.? IMPRESSION:?? Acute inflammation and wall thickening of the cecum and ascending?? colon with prominent adjacent pericolonic and pelvic adenopathy.?? Differential considerations include colitis, diverticulitis and?? ultimately neoplastic process must be excluded given extent of?? abdominopelvic adenopathy, short-term follow-up recommended. ?? Of note, the appendix is not definitively visualized in this area. * Final Report * ?? MRI Foot w/ + w/o Contrast Left PROCEDURE INFORMATION:?? Exam: MR Left Lower Extremity Other Than Joint Without and With?? Contrast; Foot?? Exam date and time: 07/30/2023 3:03 PM?? Age: 58 years old?? Clinical indication: R/O osteomyelitis? TECHNIQUE:?? Imaging protocol: Magnetic resonance imaging of the left lower?? extremity without and with contrast. Exam focused on the foot.?? Contrast material: DOTAREM; Contrast volume: 20 ml; Contrast route:?? INTRAVENOUS (IV); ? COMPARISON:?? CR XR FOOT COMPLETE MIN 3V LT 07/28/2023 2:14 PM? FINDINGS: ?? Dermal and subcutaneous soft tissue swelling is seen involving the?? midfoot and forefoot, particularly dorsal. ??No identifiable organized?? drainable fluid collection suggestive of an abscess. ??There is soft?? tissue ulceration over the distal aspect of the great toe with soft?? tissue enhancement suggesting an inflammatory process, again with no?? focal ulcer ?? Bony alignment is normal.?? Overall pattern of marrow signal is unremarkable. ??No marrow?? replacement process. ?? No acute fracture, stress fracture, bone contusion or osteochondral?? lesion.? There is abnormal marrow replacement and abnormal enhancement?? involving the distal phalanx of the great toe, concerning for?? osteomyelitis, with distal cortical erosion also present. Proximal?? phalanx is not involved..? Lisfranc joint is congruent. ?? No metatarsal fracture or stress fracture.? Great toe MTP joint is unremarkable aside from mild degenerative?? changes. ?? Second through 5th MTP joint spaces and forefoot joint spaces are?? well maintained.?? Phalanges of the 2nd through 5th toes show no concerning deformity. ?? No focal soft tissue mass or fluid collection is present.?? No evidence of intermetatarsal bursitis or interdigital neuroma. ?? Imaged flexor and extensor tendons and intrinsic muscles are?? unremarkable.? IMPRESSION: ?? Soft tissue ulceration over the distal aspect of the great toe with?? underlying great toe distal phalanx osteomyelitis but no abscess.? Mild nonspecific midfoot and forefoot subcutaneous soft tissue edema?? without abnormal enhancement to suggest diffuse cellulitis and?? without drainable abscess ?? Review of Systems see [facility] Physical Exam Vitals & Measurements T:??37.7?C ??(Temporal Artery)?? TMIN:??36.6?C ??(Temporal Artery)?? TMAX:??39.9?C ??(Temporal Artery)?? HR:??74??(Peripheral)?? RR:??20?? BP:??114/64?? SpO2:??94%?? WT:??118.5??kg?? PainScore:??0?? O2 Flow Rate:??1?? O2 Therapy:??Room air?? NAD, cooperative A+O to person, place, situation ?? Non labored breathing ?? RR ?? Soft, NT, ND ?? Left great toe with ulceration1.5cm x 1cm at the base distally. There is onchymocosis present. No active drainage. Left leg is swollen with cellulitis and signs suggestive of chronic venous insufficenty.? RIght great toe with ulceration [id number] with no active signs of infection or drainge. no eryhtema.? Triphasic DP, PT pedal pulses of left foot.?? Assessment/Plan 1.??Sepsis??A41.9 2.??Diabetic ulcer of left foot??E11.621 ??- Osteomyelities was revealed on MRI. I had long discussion that definitive treatement for this would consist of amputation of at least a portion of his left great toe. He did not want to proceed with amputation and refused multple times. He would like to continue course of antibiotic treatemtn of OM (he will need at least 6 week course) and follow up with his cellular tower climber in [facility] for this. I did explain that the infection could get worse and spread but he did not want to proceed with amptuation this hospitization.? In terms of his CT scan findings of colitis, I did recommend colonscopy as outpatient for further assesment. Continue abx therapy for this. ON exam patient has no tenderness and he can follow me in office for this.?? 3.??Cellulitis of leg??L03.119 4.??Toe ulcer??L97.509 5.??Alcohol use with withdrawal??F10.939 6.??Colitis??K52.9 7.??Alcohol abuse??F10.10 8.??Diabetes mellitus, type II uncontrolled??E11.9 9.??Severe obesity??E66.01 10.??Schizophrenia??F20.9 11.??Pulmonary nodule??R91.1 12.??Anemia??D64.9,??Anemia??D64.9 Non-pressure chronic ulcer of other part of left foot with unspecified severity??L97.529 Problem List/Past Medical History Ongoing Alcohol abuse Alcohol use with withdrawal Allergic rhinitis Anemia Arteritis Diabetes mellitus, type II uncontrolled Diabetic ulcer of left foot Dystrophic nail Foot abscess Generalized anxiety disorder Hypertensive disorder 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 Localized edema Mononeuropathy due to type 2 diabetes mellitus Nicotine dependence non-pressure ulcer lower limb Onychomycosis of multiple toenails with type 2 diabetes mellitus Pulmonary nodule Puncture wound of skin Right arm pain Right upper quadrant pain Schizophrenia Sepsis Severe obesity Tinea pedis Venous stasis Venous stasis ulcer of left ankle Venous stasis ulcer of right ankle Historical No qualifying data Medications Inpatient acetaminophen, 650 mg= 2 tab, Oral, every 6 hr, PRN albuterol 2.5 mg/3 mL (0.083%) inhalation solution, 2.5 mg= 3 mL, Nebulized Inhalation, QID RT, PRN ARIPiprazole, 10 mg= 2 tab, Oral, Daily aspirin, 81 mg= 1 tab, Oral, Daily busPIRone, 15 mg= 1 tab, Oral, Daily cefepime Dextrose 50% intravenous solution, 12.5 g= 25 mL, IV Push, As Directed, PRN Dextrose 50% intravenous solution, 25 g= 50 mL, IV Push, As Directed, PRN diazePAM, 10 mg= 2 tab, Oral, every 1 hr, PRN diazePAM, 5 mg= 1 mL, IV Push, every 1 hr, PRN diazePAM, 10 mg= 2 tab, Oral, every 1 hr, PRN diazePAM, 10 mg= 2 mL, IV Push, every 1 hr, PRN diazePAM, 10 mg= 2 mL, IV Push, every 10 min, PRN enoxaparin, 40 mg= 0.4 mL, Subcutaneous, every 24 hr folic acid, 1 mg= 1 tab, Oral, Daily GlucaGen, 1 mg= 1 EA, Intramuscular, As Directed, PRN glucose 40% oral gel, 15 g= 37.5 mL, Oral, As Directed, PRN glucose 40% oral gel, 30 g= 75 mL, Oral, As Directed, PRN insulin glargine, 40 units= 0.4 mL, Subcutaneous, every night at bedtime insulin lispro (HumaLog) correction- sensitive, Sensitive Scale, Subcutaneous, QID(ACHS) iron gluconate, 324 mg= 1 tab, Oral, TID(AC) lidocaine 1% injectable solution, 1 mg= 0.1 mL, Intradermal, As Directed, PRN magnesium oxide, 400 mg= 1 tab, Oral, Daily metroNIDAZOLE, 500 mg= 100 mL, IV Piggyback, every 8 hr multivitamin, 1 tab, Oral, Daily Normal Saline Flush, 10 mL, IV Push, every 12 hr (michele) ondansetron, 4 mg= 2 mL, IV Push, every 6 hr, PRN Sodium Chloride 0.9% 1,000 mL, 1000 mL, IV thiamine, 100 mg= 1 tab, Oral, Daily Toradol, 15 mg= 0.5 mL, IV Push, every 6 hr, PRN vancomycin, 1750 mg= 350 mL, IV Piggyback, every 12 hr Home Albuterol (Eqv-ProAir HFA) 90 mcg/inh inhalation aerosol, 2 puffs, Inhale, every 4 hr, PRN ARIPiprazole 10 mg oral tablet, 10 mg= 1 tab, Oral, Daily aspirin 81 mg oral tablet, chewable, 1 tab, Oral, Daily, 3 refills busPIRone 15 mg oral tablet, 15 mg= 1 tab, Oral, Daily compression socks, See instructions Compression stockings, See instructions Diabetic shoes, See instructions Farxiga 5 mg oral tablet, 1 tab, Oral, Daily fluticasone 50 mcg/inh nasal spray, 2 sprays, !-Nasal, every morning, 5 refills furosemide 40 mg oral tablet, 80 mg= 2 tab, Oral, every morning, 3 refills Glucometer, See instructions glucomter, See instructions insulin glargine 100 units/mL subcutaneous solution, See Instructions, 11 refills Lancets, See instructions, 3 refills Levemir 100 units/mL subcutaneous solution, 90 units, Subcutaneous, Daily losartan 50 mg oral tablet, 50 mg= 1 tab, Oral, Daily, 4 refills metFORMIN 1000 mg oral tablet, 1000 mg= 1 tab, Oral, BID, 3 refills OPTICHAMBER MIS TOMAS pen needles 32G 4mm, See instructions, 4 refills Request diabetic shoes from [employer], See instructions Request knee high compressions stockings 30-40 mmHg from [employer]., See instructions Test strips, See instructions, 3 refills ULTICARE INSULIN SYRINGE/ 1ML/30G SYN UtiCare Insulin Syringe 30GX5/15 1ML, See Instructions, 3 refills Allergies No Known Allergies No Known Medication Allergies Social History Alcohol Current, Beer, Daily Electronic Cigarette/Vaping Electronic Cigarette Use: Never. Tobacco Current everyday tobacco user Tobacco Use:. 1.5 packs a day per day. Family History Cancer: Mother. Immunizations Vaccine Date Status tetanus-diphth toxoids (Td) adult/adol 06/22/2021 Recorded Comments : tolerated well influenza virus vaccine, live 03/24/2020 Recorded Comments : pt tolerated well influenza virus vaccine, live 01/03/2017 Recorded influenza virus vaccine, inactivated 01/05/2016 Recorded pneumococcal 23-polyvalent vaccine 02/16/2015 Recorded influenza virus vaccine, inactivated 02/16/2015 Recorded influenza virus vaccine, inactivated 01/26/2014 Recorded influenza virus vaccine, inactivated 12/11/2011 Recorded influenza virus vaccine, inactivated 11/10/2010 Recorded tetanus/diphth/pertuss (Tdap) adult/adol 11/10/2010 Recorded influenza virus vaccine, inactivated 05/04/2010 Recorded influenza virus vaccine, inactivated 04/20/2009 Recorded Novel Duzssrrsi-[id number], all formulation 04/20/2009 Recorded tetanus-diphth toxoids (Td) adult/adol 02/23/2002 Recorded Electronically Signed on 07/31/23 12:47 PM Fuentse Ellison DO Occupational therapy Progress note * Yuridia Cohen OTR/L: PERFORM, MODIFY, MODIFY Event Display: Occupational Therapy Progress Note Authored Date: [id number] Patient ID and date of checked: Confirmed *Current Level of Care: In-Patient *Admitting Diagnosis: Sepsis *Therapy Diagnosis: Assessing for differences in need for assistance with personal care Pertinent Medical History: Patient presented to the ED after [facility] called EMS due to AMS and a fever of 103.5. Patient was admitted to this facility at inpatient level of care in 07/28/23 with the diagnosis of sepsis and infected LE diabetic ulcer. 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 Patient waseasily agreeable to participate in OT evaluation. He requested several times to have L LE wound dressing addressed with RN aware. Patient left in chair with chair alarm on and call guillen within reach at OT departure. Hand Dominance: Right *Barriers to Learning: ??x None Communication Cultural Education level Hearing Language Vision Physical Cognitive Motivational Emotional Acute medical condition Precautions: ??x Standard precautions MRSA/VRE Contact precautions Droplet precautions Airborne precautions Covid precautions Total hip replacement Total knee replacement Total shoulder replacement Fall risk *Previous Level of Function: Patient lives in a second story apartment with his roommate, Bart. He is independent with most ADLs at baseline (dressing, toileting). He does receive [facility] services for bathing and wound management. His nephew cooks for him and provides meals. He does not use AD forfunctional mobility. He has not driven since his license in 1987. 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 Prior Home Setup: ?Living Situation/Level of Supervision: Apartment with roommate/ distant supervision. ?Living Environment: Apartment ?Stairs/Ramps: 16 steps to enter ?Home Equipment: None *Current Level of Function: Increased need for assistance with personal care Pain: None reported Vision/Hearing: Both WFL I was 20/20 last I checked Cognition: ? Alertness level: Alert ? Attention: Intermittent ? Communication: Expresses needs verbally ? Follows commands: Yes ? Insight into deficits: Questionable ? Memory?short term: Appears intact ? Memory?ocean transportation intermediary: Appears intact ? Orientation: x4 ? Safety awareness: good Upper Extremity Passive/Active Range of Motion: B UE AROM WFL Manual Muscle Testing: B UE strength WFL Proprioception/Sensation: Impaired in LEs Edema: Generalized in LEs Coordination: ?Fine Motor: intact ?Gross Motor: intact Tone: normal ADLs: Activity Assistance Comments Bathing Upper Body Bathing Lower Body Dressing Upper Body ??Independent ??doff and don hospital gown while standing Dressing Lower Body ??patient defers donning pants when offered Eating ??Independent ??to drink from open cup without spillage Shaving Combing Hair Brushing Teeth Toileting ??denies need IADLs: Activity Assistance Comments Light Meal Prep Phone Call Light Housekeeping Tasks Money Management Medication Management ??set up ??Patient takes medication (pills) while standing Bed Mobility: N/E Activity Assistance Comments Rolling Scooting/Repositioning Supine to Sit Sit to Supine Transfers: Activity Assistive Device Assistance Comments Sit to Stand ??None used Independent ??From bedside chair Stand to Sit Independent ??controlled descent Bed to Chair Chair to Bed Shower Transfer Toilet Transfer Functional Ambulation During ADLs: Assistance Assistive Device Distance??(ft) Comments ??independent ??none used ??~10 ft Balance: ?Static Sitting: good ?Dynamic Sitting: good ?Static Standing: good ?Dynamic Standing: good Posture: Normal Orthosis: N/E *Standardized Testing: Standardized Test Score Comments AM-PAC Vincent Index Scott Balance Score PASS SLUMS Short Blessed Test Yury Cognitive Assessment Modified Vincent Index ?? 84/100 ??Score indicates a moderate dependence with ADLs Motor Assessment Scale Quick DASH *Patient Education: Patient was introduced to this therapist and provided a brief scope of OT services in acute care. *Occupational Therapy Assessment: Patient is an 79 [facility]. He lives at home with a roommate and is independent with most ADLs at baseline with the exception of bathing and meal prep. Patient presents today at baseline level of performance. He demonstrates independence with functional transfers and dressing, and reports no concerns with ability to perform his self care. Due to the level of independence demonstrated today, there is no idication for skilled acute OT services and patient will be discharged from therapy. *Rehab Potential:??N/A _?_ *Short Term Goals?time frame: N/A *Residential Goals?time frame: N/A *Patient Goals: Home OT Plan of Care: DC today *Treatment Duration:?N/A _ *Treatment Frequency:??N/A _ *Treatment Intensity:??N/A _ *Planned Treatment Interventions: N/A Home assessment and modification education Manual therapy Neuromuscular re-education Pain management education Patient/family education Self-care/ Home management Orthoses/prosthesis fabrication and training Therapeutic activities Therapeutic exercises Cognitive skills training Wheelchair management training *Discharge Plan: discharge from therapy today Discharge Recommendations: ?Home equipment needs: N/A ?Post discharge Rehab needs:??None for OT ?Supervision needs:??Requires no supervision ?Discussed plan of care with: Patient, PT, CM *Procedure Documentation: CPT 17825: Low Complexity OT Evaluation:??24 minutes Occupational Therapy Low Complexity Evaluation performed. History involves brief review. Examination of performance deficit(s) includes 1-3 elements. Clinical decision making includes limited?? treatment option considerations. possibly present?comorbidities. Task modifications/assistance are not necessary. *Total Time: 24 minutes *Time In: 08:20 *Time Out:?? 08:44 Electronically Signed on 07/30/23 10:25 AM Yuridia Coehn OTR/L EKG study * Event Display: Telemetry Strips Please click on link to view image. * Event Display: Telemetry Strips Please click on link to view image. * Event Display: Telemetry Strips Please click on link to view image. Pharmacology Progress note * Telma Feldman: PERFORM Event Display: Pharmacy Progress Note Authored Date: [id number] Pharmacy Progress Note [facility] Pharmacokinetics Note Drug: Vancomycin Pharmacokinetic target: AUC24 (range) 400-600 mg/L.hr Current regimen: 1750 mg IV every 12 hours Calvin Ardon is a(n) 58 years old male receiving Vancomycin 1750 mg IV every 12 hours for osteo of big toes/possible intra abdominal infection Recent measured serum creatinine values: 08/02/2023 07:00 0.71 mg/dL 08/01/2023 07:00 0.79 mg/dL 07/31/2023 07:00 0.76 mg/dL Assessment: Analysis of the most recent level(s) using [employer] gives the following patient-specific pharmacokinetic parameters: CL: 6.77 L/hr V: 68.5 L T1/2: 7.74 hours Using these values, the current regimen of Vancomycin 1750 mg IV every 12 hours is predicted to result in a steady-state trough of 13.8 mg/L and AUC24 of 517 mg/L.hr. At this time we recommend a regimen of 1750 mg IV every 12 hours, which is predicted to result in a steady-state trough of 13.8 mg/Land AUC24 of 517 mg/L.hr. Recommendations: - Vancomycin 1750 mg IV every 12 hours - Obtain Vancomycin level 08/02 at 0700. continue to follow closely, - Continue to monitor serum creatinine Temla Feldman [facility] Electronically Signed on 08/02/23 01:12 PM Telma Feldman * Telma Feldman: PERFORM Event Display: Pharmacy Progress Note Authored Date: Pharmacy Progress Note [facility] Pharmacokinetics Note Drug: Vancomycin Pharmacokinetic target: AUC24 (range) 400-600 mg/L.hr Current regimen: 1750 mg IV every 12 hours Calvin Ardon is a(n) 58 years old male receiving Vancomycin 1750 mg IV every 12 hours for diabetic foot infection. Recent measured serum creatinine values: 07/31/2023 07:00 0.76 mg/dL 07/30/2023 07:00 0.88 mg/dL 07/29/2023 07:00 0.97 mg/dL Assessment: Analysis of the most recent level(s) using [employer] gives the following patient-specific pharmacokinetic parameters: CL: 6.77 L/hr V: 68.5 L T1/2: 7.74 hours Using these values, the current regimen of Vancomycin 1750 mg IV every 12 hours is predicted to result in a steady-state trough of 13.8 mg/L and AUC24 of 516 mg/L.hr. At this time we recommend a regimen of 1750 mg IV every 12 hours, which is predicted to result in a steady-state trough of 13.8 mg/Land AUC24 of 516 mg/L.hr. Recommendations: - Vancomycin 1750 mg IV every 12 hours - Obtain Vancomycin level by 08/02 if pt continues. - Continue to monitor serum creatinine Telma Feldman Electronically Signed on 07/31/23 08:55 AM Telma Feldman Kimberly S: PERFORM Event Display: Pharmacy Progress Note Authored Date: [id number] Pharmacy Progress Note [facility] Pharmacokinetics Note Drug: Vancomycin Pharmacokinetic target: AUC24 (range) 400-600 mg/L.hr Current regimen: 1750 mg IV every 12 hours Calvin Ardon is a(n) 58 years old male receiving Vancomycin 1750 mg IV every 12 hours for diabetic foot, sepsis infection Recent measured serum creatinine values: 07/30/2023 07:00 0.88 mg/dL 07/29/2023 07:00 0.97 mg/dL 07/28/2023 13:50 1.19 mg/dL Assessment: Analysis of the most recent level(s) using [employer] gives the following patient-specific pharmacokinetic parameters: CL: 6.77 L/hr V: 106 L T1/2: 11.4 hours Using these values, the current regimen of Vancomycin 1750 mg IV every 12 hours is predicted to result in a steady-state trough of 15.8 mg/L and AUC24 of 513 mg/L.hr. At this time we recommend a regimen of 1750 mg IV every 12 hours, which is predicted to result in a steady-state trough of 15.8 mg/Land AUC24 of 513 mg/L.hr. Recommendations: - Vancomycin 1750 mg IV every 12 hours - Obtain Vancomycin level 07/30 0700 - Continue to monitor serum creatinine Telma Feldman Electronically Signed on 07/30/23 03:19 PM Telma Feldman Respiratory therapy Hospital Progress note * Maria Elena Tatum: PERFORM Event Display: Respiratory Therapy Progress Note Authored Date: [id number] ??MELANIENAULTCALVIN 58 Years MEASURED Body Mass Index: 39.86 kg/m2 (07/28/23 20:58:00) BSA Measured: 2.33 m2 (07/28/23 20:58:00) Height: 170 cm (08/02/23 12:14:00) Weight: 123.85 kg (08/08/23 08:49:00) DOSING Height/Length Dosin cm (10/06/22 02:21:05) Weight Dosin.2 kg (07/28/23 13:13:00) Respiratory Shift Summary Breath Sounds: Clear Shift Treatments: None- IS refused, pt is eating breakfast @ this time. Shift Events: Pt alert sitting in recliner eating breakfast. Pt denies SOB/cough @ this time. Highly encouraged pt to ambulate today, RN @ bedside and in agreement w/ this. Respiratory Protocol??Aerosol Therapy Assessment and Scoring Home Medication Routine: Lung History (2) Current smoker greater than 1 pack/day with greater than 15 pack year history and/or diagnosed lung disease Breath Sounds (0) Clear in all hummel Respiratory Rate (0) Less than or equal to 18 Modified Carrillo Scale or Observed Dyspnea (0) None Oxygen Therapy (0) Room air, at baseline home O2, post-op, or CHF Home Respiratory Medications (0) None Inhaler Use Assessment ? Clinically Stable? Yes? Can take a slow deep breath on command? Yes? Can perform a 3 second breath hold? Yes Respiratory total Score: 2 Respiratory Guidelines 0-2 pts - No Therapy indicated Electronically Signed on 08/08/23 04:17 PM Maria Elena Tatum Mya R: PERFORM Event Display: Respiratory Therapy Progress Note Authored Date: [id number] 1922: Received pt awake and alert sitting up in chair. Pt on RA SPO2 98%, HR 76, RR 20 equal and nonlabored. BBS clear. Respirations shallow. Did IS w/ pt, only achieved 800ml x4 breaths. Pt has poortechnique and being uncooperative. Pt states he has pain in his abdomen, educated pt on splinting to help with the pain while taking deep breaths. Pt seemed uninterested in what this RT had to say. Pt in no acute resp distress at this time. RT to continue IS w/ pt. Electronically Signed on 08/07/23 09:02 PM Darryn Rhonda R * Maria Elena Tatum: PERFORM, MODIFY Event Display: Respiratory Therapy Progress Note Authored Date: [id number] ??CALVIN ARDON 58 Years MEASURED Body Mass Index: 39.86 kg/m2 (07/28/23 20:58:00) BSA Measured: 2.33 m2 (07/28/23 20:58:00) Height: 170 cm (08/02/23 12:14:00) Weight: 121.9 kg (08/07/23 07:57:00) DOSING Height/Length Dosin cm (10/06/22 02:21:05) Weight Dosin.2 kg (07/28/23 13:13:00) Respiratory Shift Summary Breath Sounds: Clear/Diminished Shift Treatments: IS 500ml x 5 breaths Shift Events: Pt a/on sitting up in bed. Pt found to be on 2 L/min via NC, unclear why as low sats not charted overnight. Pt req to get OOB to the chair, RN/PLASTIC SURGERY COORDINATOR aware. Respiratory Goals/Plan of Care: Continue IS therapy, pt does poorly. Post op major abdominal surgery and is @ risk for PNA. Electronically Signed on 08/07/23 04:32 PM Maria Elena Tatum Physician Emergency department Note * Ana De Los Santos MD: PERFORM Event Display: ED Note Physician Authored Date: [id number] CALVIN ARDON :1965 Age:58 years Sex:Male Visit Date:07/28/2023 Primary Care Physician: Marcelo Brar MD Basic Information Time Seen: Ana De Los Santos MD / 07/28/2023 13:22 Chief Complaint [facility] called EMS for altered mental status and increased fever. EMS states that his fever has increased from 102.6 to 103.5. History Of Present Illness: Patient is a 58-year-old??white male with a history of??insulin- dependent??T2DM??uncontrolled, hypertension, recent stasis,??schizophrenia,??venous stasis ulcers, nicotine dependence??, anxiety??who??presents via EMS from home??by himself. Per EMS report??[facility]??called??them??for??reported??fever??of??103.5??and presence of malodorous draining ulcers on the toes.?? There is also??report of possible altered mental status. The patient is??alert and oriented x 3.?He tells me he lives with his nephew.?? He tells me??he did not know he had a fever today??but he did feel warm??earlier.?? He says he was??bitten by a bumblebee??on his right ear??yesterday??but denies pain there.?? He reports??ulcers on his??toes,??it is unclear how long??they have been there.?? He denies pain anywhere else.?? Specifically has had no chest pain, no shortness of breath.?? No dysuria or hematuria.?? No abdominal pain.?? He has had no nausea, vomiting, constipation or diarrhea. He tells me he drinks 3??daddy daddy's??per day.?? These drinks??consist of??a mix of liquor??andsomething else. Physical Exam Vitals & Measurements T:??37.5?C ??(Temporal Artery)?? HR:??85??(Peripheral)?? HR:??85??(Monitored)?? RR:??11?? BP:??100/51?? SpO2:??100%?? HT:??170??cm?? WT:??115.2??kg?? BMI:??39.86?? Pain Score:??0?? O2 Therapy:??Room air?? General: A&Ox3, Calm, no apparent distress, well developed, pleasant and cooperative ?? HEENT: Head ATNC. Eyes: VINH. Extraocular Mobility: intact and symmetrical. Conjunctiva: non-injected, anicteric, no discharge. Oral Cavity: moist. Neck: no masses, no crepitus. Lymph Nodes: no cervical lymphadenopathy? Respiratory: CTA bilaterally, no wheezing, no rales/crackles? CV: RRR, normal S1, normal S2, no murmurs, rubs or gallops ?? Abdomen : soft, non-tender, non-distended, no rebound or guarding, no hepatosplenomegaly ?? Extremities: Bilateral feet with??overgrowth of??fungal??nails.?2 well??demarcated ulcers are noted over the left foot. ??The first one is about 2 cm diameters??on the plantar aspect of the??firsttoe??and the second one is about 1 cm diameter on the plantar aspect of the second toe. The dressing is malodorous but there is no active drainage at the moment. There is surrounding redness and warmth of the Lt toes. ??There is also redness and warmth of the??rest of the foot itself and the Lt tibfib from the ankle to about 3 in distal to the knee. ??The right foot is without any ulcers. ??There is hyperpigmentation of both??distal lower extremities??from the ankle to the kneey. ?? Skin: No other lesions??or bruising ?? Neuro: normal tone, normal strength in all 4 extremities, sensation intact?? Medical Decision Makin-year-old??white male with a history of??insulin- dependent??T2DM??uncontrolled, hypertension, recent stasis,??schizophrenia,??venous stasis ulcers, nicotine dependence??, anxiety??who??presents viaEMS from home??by himself??with report of??fever, left??foot ulcers??and possible altered mental status. ?? Thorough chart review performed, nursing triage note reviewed, vitals reviewed ?? The patient is well and non toxic appearing, febrile to 39.?? Unclear what his baseline mental status is??but he does not??appear to be specifically altered here. He is alert and oriented and able togive a pretty good history. ?? Concern for LE ulcers and evidence of LLE cellulitis. Will r/o osteo and other cause of fever.? Labs reviewed and interpreted independently: High leukocytosis at 22.6 with Lt shift noted, Hgb down to 9 from previous of 10.4 on Jun 20, plts stable at 300 Sodium 132, K 4.6, Cl 96, CO2 29, ast/alt wnl, bun/cr 21/1.19, ca 8.8,?? CRP 43.16 UA with no evidence of infection ?? Imaging reviewed: CXR with no acute findings Foot XR with no evidence of OM CT chest/abd/pelvis with contrast: Acute inflammation and wall thickening of the cecum and ascending?? colon with prominent adjacent pericolonic and pelvic adenopathy.?? Differential considerations include colitis, diverticulitis and?? ultimately neoplastic process must be excluded given extent of?? abdominopelvic adenopathy, short-term follow-up recommended. ?? Of note, the appendix is not definitively visualized in this area. ?? Pt given Ceftriaxone and Vancomycin IV? Repeat serial evals showed pt stable, continues to be A&Ox3 without evidence of overt AMS.? Pt discussed with Dr Dawson from the hospitalist service for admission at 1720 Procedure No Qualifying Data Assessment/Plan 1.??Cellulitis of leg??L03.119 2.??Toe ulcer??L97.509 3.??Anemia??D64.9 4.??Colitis??K52.9 Orders: Blood Culture, Blood, Stat collect, ST - Stat, 07/28/23 14:58:00 EDT, Once, Nurse collect, Print Label Blood Culture, Blood, Stat collect, ST - Stat, 07/28/23 14:58:00 EDT, Once, Nurse collect, Print Label Medication Reconciliation Unchanged albuterol (Albuterol (Eqv-ProAir HFA) 90 mcg/inh inhalation aerosol)2 Puffs Inhale (breathe in) every 4 hours as needed other (see comment). as needed. ?? ARIPiprazole (ARIPiprazole 10 mg oral tablet)1 tab Oral (given by mouth) every day. for 28 days. ?? aspirin (aspirin 81 mg oral tablet, chewable)1 tab Oral (given by mouth) every day. Refills: 3. ?? busPIRone (busPIRone 15 mg oral tablet)1 tab Oral (given by mouth) every day. for 28 days. ?? dapagliflozin (Farxiga 5 mg oral tablet)1 tab Oral (given by mouth) every day. Refills: 3. ?? dulaglutide (Trulicity Pen 1.5 mg/0.5 mL [...] 3. ?? Durable Medical Equipment for Prescription (Request diabetic shoes from [employer]Please eval and Tx: 57 y.o. man. Request diabetic shoes. Hx poor control T2DM. A1c 11.6 on 04/04/2022. Venous stasis ulcer inf to med malleolus bilat. PT consult at [facility] 11/20 Onychomycosis all toenails. Loss protective sensation w/monofilament test.. Refills: 0. ?? Durable Medical Equipment for Prescription (Request knee high compressions stockings 30-40 mmHg from [employer].)Please eval and Tx: 57 y.o. man. Request knee high compression stockings 30-40 mmHg. Hx poor control T2DM. A1c 11.6 on 04/04/2022. Venous stasis ulcer inf to med malleolus bilat. PT consult at [facility] 11/20 Onychomycosis all toenails. Loss protective sensation w/monofilament test.. Refills: 0. ?? Durable Medical Equipment for Prescription (Test [...] Subcutaneous (under the skin) every day. Refills: 0. ?? insulin glargine (insulin glargine 100 units/mL subcutaneous solution)Take 90 units daily subcu as directed for 30 days.. Refills: 11. ?? insulin glargine (Lantus 100 units/mL subcutaneous solution)30 vials, 0 Refill(s). ?? insulin pen needles 32G 4 mm (pen needles 32G 4mm)Use with insulin pen daily. Refills: 4. ?? loratadine (ohm Allergy Relief 10 mg oral tablet)1 tab Oral (given by mouth) every day. Refills: 3. ?? losartan (losartan 50 mg oral tablet)1 tab Oral (given by mouth) every day. for 90 days. Refills: 4. ?? metFORMIN (metFORMIN 1000 mg oral tablet)1 tab Oral (given by mouth) 2 times a day. Refills: 3. ?? Other Prescription (OPT[employer]AMBER MART[employer]N TOMAS) ?? Other Prescription (ULTICARE INSULIN SYRINGE/ 1ML/30G SYN) ?? Other Prescription (UtiCare Insulin Syringe 30GX5/15 1ML)use 1x daily. Refills: 3. 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 Localized edema Mononeuropathy due to type 2 diabetes mellitus Nicotine dependence non-pressure ulcer lower limb Onychomycosis of multiple toenails with type 2 diabetes mellitus Puncture wound of skin Right arm pain Right upper quadrant pain Schizophrenia Severe obesity Tinea pedis Venous stasis Venous stasis ulcer of left ankle Venous stasis ulcer of right ankle Historical No qualifying data Medication Administration Given 0.9% NaCl bolus, 1000 mL, Medication Bolus 0.9% NaCl bolus, 1000 mL, Medication Bolus acetaminophen, 1000 mg, Oral cefTRIAXone, IV Piggyback vancomycin, 2000 mg, IV Piggyback Allergies No Known Allergies No Known Medication Allergies Social History Alcohol Current, Beer, Daily Electronic Cigarette/Vaping Electronic Cigarette Use: Never. Tobacco Current everyday tobacco user Tobacco Use:. 1.5 packs a day per day. Family History Cancer: Mother. Lab Results CBC and Differential?? LATEST RESULTS?? HISTORICAL RESULTS?? WBC?? 07/28/23 13:50?? 22.6 ??High?? 06/21/23?? 8.6?? RBC?? 07/28/23 13:50?? 4.4 ??Low?? 06/21/23?? 4.9?? Hgb?? 07/28/23 13:50?? 9.0 ??Low?? 06/21/23?? 10.4 ??Low?? Hct?? 07/28/23 13:50?? 30.9 ??Low?? 06/21/23?? 36.1 ??Low?? MCV?? 07/28/23 13:50?? 69.6 ??Low?? 06/21/23?? 73.1 ??Low?? MCH?? 07/28/23 13:50?? 20.3 ??Low?? 06/21/23?? 21.1 ??Low?? MCHC?? 07/28/23 13:50?? 29.1 ??Low?? 06/21/23?? 28.8 ??Low?? RDW-CV?? 07/28/23 13:50?? 17.5 ??High?? 06/21/23?? 16.9 ??High?? Platelets?? 07/28/23 13:50?? 299?? 06/21/23?? 321?? Segs Man?? 07/28/23 13:50?? 91 ??High? Lymph Man?? 07/28/23 13:50?? 0 ??Low? Rogers Man?? 07/28/23 13:50?? 6? Eos Man?? 07/28/23 13:50?? 0 ??Low? Baso Man?? 07/28/23 13:50?? 0? Band Man?? 07/28/23 13:50?? 3? Abs Neut Man?? 07/28/23 13:50?? 21.2? RBC Morph?? 07/28/23 13:50?? Abnormal?? 06/21/23?? Abnormal?? Anisocyte?? 07/28/23 13:50?? Moderate?? 06/21/23?? Small?? Hypochromia?? 07/28/23 13:50?? Moderate?? 06/21/23?? Small?? Microcyte?? 07/28/23 13:50?? Moderate?? 06/21/23?? Small?? Poik?? 07/28/23 13:50?? Rare? Polychrom?? 07/28/23 13:50?? Rare? Slide Review?? 07/28/23 13:50?? Man Diff?? 06/21/23?? Morph Only? Miscellaneous Hematology?? LATEST RESULTS?? ESR, Westergren?? 07/28/23 13:50?? 15? Routine Chemistry?? LATEST RESULTS?? HISTORICAL RESULTS?? Sodium Level?? 07/28/23 13:50?? 132 ??Low?? 06/21/23?? 138?? Potassium Level?? 07/28/23 13:50?? 4.6?? 06/21/23?? 3.8?? Chloride Level?? 07/28/23 13:50?? 96 ??Low?? 06/21/23?? 101?? CO2?? 07/28/23 13:50?? 29?? 06/21/23?? 30?? Alk Phos?? 07/28/23 13:50?? 118?? 06/21/23?? 91?? AST?? 07/28/23 13:50?? 31?? 06/21/23?? 14 ??Low?? ALT?? 07/28/23 13:50?? 37?? 06/21/23?? 23?? BUN?? 07/28/23 13:50?? 21 ??High?? 06/21/23?? 14?? Glucose Level?? 07/28/23 13:50?? 193 ??High?? 06/21/23?? 124 ??High?? Creatinine Level?? 07/28/23 13:50?? 1.19?? 06/21/23?? 0.85?? eGFR AA?? 07/28/23 13:50?? 70?? 06/21/23?? 100?? eGFR Non-AA?? 07/28/23 13:50?? 70?? 06/21/23?? 100?? Calcium Level?? 07/28/23 13:50?? 8.8?? 06/21/23?? 8.9?? Protein Total?? 07/28/23 13:50?? 7.2?? 06/21/23?? 7.2?? Albumin Level?? 07/28/23 13:50?? 3.1 ??Low?? 06/21/23?? 3.4?? Bilirubin Total?? 07/28/23 13:50?? 0.6?? 06/21/23?? 0.3?? Lactic Acid Lvl?? 07/28/23 13:50?? 1.7? Magnesium Level?? 07/28/23 13:50?? 1.6 ??Low? CRP High Sens?? 07/28/23 13:50?? 43.16 ??High? UA Macroscopic?? LATEST RESULTS?? HISTORICAL RESULTS?? UA Color?? 07/28/23 14:11?? Yellow?? 11/16/22?? Pale Yellow?? UA Appear?? 07/28/23 14:11?? Clear?? 11/16/22?? Clear?? UA Glucose?? 07/28/23 14:11?? 3+ Abnormal?? 11/16/22?? 3+ Abnormal?? UA Bili?? 07/28/23 14:11?? Negative?? 11/16/22?? Negative?? UA Ketones?? 07/28/23 14:11?? Negative?? 11/16/22?? Negative?? UA Spec Grav?? 07/28/23 14:11?? 1.010?? 11/16/22?? 1.010?? UA Blood?? 07/28/23 14:11?? Negative?? 11/16/22?? Negative?? UA pH?? 07/28/23 14:11?? 5.0?? 11/16/22?? 6.5?? UA Protein?? 07/28/23 14:11?? Negative?? 11/16/22?? Negative?? UA Urobilinogen?? 07/28/23 14:11?? Normal?? 11/16/22?? Normal?? UA Nitrite?? 07/28/23 14:11?? Negative?? 11/16/22?? Negative?? UA Leuk Est?? 07/28/23 14:11?? Negative?? 11/16/22?? Negative? Infectious Disease?? LATEST RESULTS?? Strep A -IDNOW?? 07/28/23 13:50?? Not Detected?? SARS-CoV-2 (COVID-19) RNA (ID Now)?? 07/28/23 16:04?? Not Detected? 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 No complaints *Barriers to Learning: None Communication Cultural Education level Hearing Language Vision Physical ??x Cognitive Motivational Emotional Precautions: ??x Standard precautions MRSA/VRE Contact precautions Droplet precautions Airborne precautions Covid precautions Total hip replacement Total knee replacement Total shoulder replacement Fall risk Weight Bearing: weight bearing as tolerated?left lower extremity *Previous Level of Function: VNA services - assistance with bathing Roommate assists with cooking Occupational Status/Profile: Disabled Prior Home Setup: ?? Living Situation/Level of Supervision: Lives with roommate in an upstairs apartment, VNA assistsweekly (patient unclear/inconsistent with reports of assistance from VNA services) ?Living Environment: Upstairs apartment ?Stairs/Ramps: 15-20 stairs to enter with rail ?Home Equipment: None *Current Level of Function: Pain: ?Patient denies pain Vision/Hearing: WNL Cognition: ?? Attention: Alert ?Communication: Verbal, at times patient's line of thought appeared incoherent ?Follows Commands: WNL ?Insights into Deficits: Fair, patient verbalized need for cane and foot protection but at timeswas incoherent ?Level of Consciousness: Alert ?Residential Memory: WNL ?Short Term Memory: WNL ?Orientation: WNL ?Safety Awareness: Fair Passive/Active Range of Motion: Observed WNL Manual Muscle Testing: Observed WNL Bed Mobility: Unobserved Activity Assistance Comments Rolling Scooting/Repositioning Supine to Sit Sit to Supine Transfers: Activity Assistive Device Assistance Comments Sit to Stand None Independent Stand to Sit None Independent Bed to Chair Chair to Bed Shower Transfer Toilet Transfer Ambulation: Assistance Assistive Device Distance Comments Mod I/distant supervision Single-point cane 250 feet Good pacing, multiple standing rests Stairs: Assistance Assistive Device # Steps Comments None None 10 Wheelchair Mobility: N/A Assistance Distance Comments Balance: ?? Static Sitting: WNL ?Dynamic Sitting: WNL ?Static Standing: WNL ?Dynamic Standing: WNL Posture: Remarkable Skin Integrity: Bandaged left toe, discoloration right lower leg *Standardized Testing: Standardized Test: Tinetti Gait & Balance ? Score: ? Comments: Balance Section: Sitting balance: (1) = steady, safe Rises from chair: (2) = able without use of arms Attempts to rise: (2) = able to rise, 1 attempt Immediate standing balance (first 5 seconds): (2) = steady without walker or other support Standing balance: (2) = narrow stance without support Nudged: (2) = steady Eyes closed: (1) = steady Turning 360 degrees: (1) = continuous?(1) = steady Sitting down: (2) = safe, smooth motion Balance Score:? Gait Section: Indication of gait (immediately after told to go): (1) = no hesitancy Step length and height: (2) = step through both Foot clearance: (2) both feet clear floor Step symmetry: (1) = right and left step length appear equal Step continuity: (1) = steps appear continuous Path: (1) = mild/moderate deviation or uses walking aid Trunk: (0) = marked sway or uses walking aid Walking time: (1) = heels almost touching while walking Gait Score:?9?? /12 Total Score:?25 /28 Risk Factors: Tinetti score > or = 24 indicates a low risk of falls *Patient Education: Safety with left lower extremity, sequencing proper use of single-point cane *Physical Therapy Assessment: 58-year-old male presents seated up to chair upon arrival with chair alarm in place. Per RN patientwas already in the chair when she arrived this morning so bed mobility has not been observed. He was alert and aware though at times his language appeared incoherent or confused. He did understand the need for some assistance and verbalized a preference to walk with a single-point cane. Patient waseducated on proper use and sequencing with single-point cane and was able to ambulate full length of the kinsey safely, with good pacing, no complaints of pain or shortness of breath, and no evidence of imbalance. Patient was able to climb and descend the stairs for total of 10 steps without reports of shortness of breath or signs of instability. No further need for skilled care at this time thoughpatient could use a single-point cane when returning home with continued VNA services. *Rehab Potential: Not applicable?_ *Short Term Goals?time frame: N/A *Residential Goals?time frame: N/A *Patient Goals: N/A PT Plan of Care (as per below) No further need for skilled care *Discharge Plan:??IE and DC. Discharge Recommendations: ?? Home equipment needs: Single-point cane ?Post discharge Rehab needs: _?Home with continue VNA services ?? Disposition: home ?Supervision needs: limited supervision ?Discussed plan of care with: Patient *Evaluation Procedure Documentation: CPT 99477: Low Complexity PT Evaluation:?15? minutes Physical Therapy Evaluation performed. History involves 1-2 personal factors and/or comorbidities. Examination of body system(s) includes 1-2 elements. Clinical presentation is stable. Clinical decision making is low. CPT 30696: Gait Training:??10? minutes Gait and/or stair training to promote improved sequencing, safety and movement quality for functional mobility. Treatment techniques utilized today included: Patient education on sequencing with single-point cane Ambulated greater than 250 feet Education on sequencing stairs, able to climb 10 steps *Total Time: 25 minutes *Time In: 9:55 AM *Time Out: 10:20 AM Electronically Signed on 07/29/23 11:14 AM Roz Longoria PT Nutrition and dietetics Progress note * Manny Longoria RD: PERFORM, MODIFY, MODIFY, MODIFY Event Display: Nutrition Note Authored Date: [id number] Nutrition Recommendations -Recommended pt try to follow plate method at home; provided carb counting educational materials (pt intimated he has someone to help w/ cooking/grocery shopping) -If person who assists is helping manage carbs at home, recommending 60 gram consistent carb diet -Provide double protein portions at meals Nutrition Risk Level -High (poorly controlled T2DM) Assessment and Monitoring -Last A1c was 7.6% but likely artificially low related to anemia -Pt admitted?? w/ wounds/sepsis. -Home chronic disease management impacted by mental health and substance abuse issues -Pt intimated he does have someone who assists w/ ADL's at home (cooking/shopping), he was not ableto meaningfully participate today in education, responding only in yup to each questions asked Nutrition Diagnosis -Poorly controlled IDDM related to inability to effectively manage self care as evidenced by infected diabetic ulcers Nutrition Goals -Facilitate wound healing Nutrition Interventions -Provided education/educational materials, encouraged pt to share information w/ caregiver Nutrition Education -Plate Method -Carb Counting Anthropometrics/Estimated Needs Jvbjwz551.5 kg(Recorded: 07/30/2023 07:20 EDT) [id number] cm(Recorded: 07/28/2023 20:58 EDT) Body Mass Index39.86 kg/m2(Recorded: 07/28/2023 20:58 EDT) Reason for Visit sepsis, toe ulcer, CIWA Problem List/Past Medical History Ongoing Alcohol abuse Alcohol use with withdrawal Allergic rhinitis Anemia Arteritis Diabetes mellitus, type II uncontrolled Diabetic ulcer of left foot Dystrophic nail Foot abscess Generalized anxiety disorder Hypertensive disorder 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 Tobacco Current everyday tobacco user Tobacco Use:. 1.5 packs a day per day. Family History Cancer: Mother. Diet Orders Diet Order, 07/28/23 21:28:00 EDT, Diabetic Allergies No Known Allergies No Known Medication Allergies Nutrition Lab Results Test Name Test Result Date/Time WBC 10.2 x10^3/mcL 07/30/2023 07:08 EDT Hgb 7.2 g/dL 07/30/2023 07:08 EDT Hct 25.5 % 07/30/2023 07:08 EDT MCV 69.9 fL 07/30/2023 07:08 EDT Platelets 201 x10^3/mcL 07/30/2023 07:08 EDT Sodium Level 133 mmol/L 07/30/2023 07:08 EDT Potassium Level 3.9 mmol/L 07/30/2023 07:08 EDT Chloride Level 100 mmol/L 07/30/2023 07:08 EDT CO2 25 mmol/L 07/30/2023 07:08 EDT Alk Phos 118 unit/L 07/28/2023 13:50 EDT ALT 37 unit/L 07/28/2023 13:50 EDT BUN 14 mg/dL 07/30/2023 07:08 EDT Glucose Level 187 mg/dL 07/30/2023 07:08 EDT Creatinine Level 0.88 mg/dL 07/30/2023 07:08 EDT Albumin Level 3.1 g/dL 07/28/2023 13:50 EDT Bilirubin Total 0.6 mg/dL 07/28/2023 13:50 EDT Ferritin Level 51 ng/mL 07/29/2023 07:00 EDT Magnesium Level 2.1 mg/dL 07/30/2023 07:08 EDT Medications Inpatient acetaminophen, 650 mg= 2 tab, Oral, every 6 hr, PRN albuterol 2.5 mg/3 mL (0.083%) inhalation solution, 2.5 mg= 3 mL, Nebulized Inhalation, QID RT, PRN ARIPiprazole, 10 mg= 2 tab, Oral, Daily aspirin, 81 mg= 1 tab, Oral, Daily busPIRone, 15 mg= 1 tab, Oral, Daily cefepime Dextrose 50% intravenous solution, 12.5 g= 25 mL, IV Push, As Directed, PRN Dextrose 50% intravenous solution, 25 g= 50 mL, IV Push, As Directed, PRN diazePAM, 10 mg= 2 tab, Oral, every 1 hr, PRN diazePAM, 5 mg= 1 mL, IV Push, every 1 hr, PRN diazePAM, 10 mg= 2 tab, Oral, every 1 hr, PRN diazePAM, 10 mg= 2 mL, IV Push, every 1 hr, PRN diazePAM, 10 mg= 2 mL, IV Push, every 10 min, PRN enoxaparin, 40 mg= 0.4 mL, Subcutaneous, every 24 hr folic acid, 1 mg= 1 tab, Oral, Daily GlucaGen, 1 mg= 1 EA, Intramuscular, As Directed, PRN glucose 40% oral gel, 15 g= 37.5 mL, Oral, As Directed, PRN glucose 40% oral gel, 30 g= 75 mL, Oral, As Directed, PRN insulin glargine, 40 units= 0.4 mL, Subcutaneous, every night at bedtime insulin lispro (HumaLog) correction- sensitive, Sensitive Scale, Subcutaneous, QID(ACHS) iron gluconate, 324 mg= 1 tab, Oral, TID(AC) lidocaine 1% injectable solution, 1 mg= 0.1 mL, Intradermal, As Directed, PRN magnesium oxide, 400 mg= 1 tab, Oral, Daily metroNIDAZOLE, 500 mg= 100 mL, IV Piggyback, every 8 hr multivitamin, 1 tab, Oral, Daily Normal Saline Flush, 10 mL, IV Push, every 12 hr (michele) ondansetron, 4 mg= 2 mL, IV Push, every 6 hr, PRN Sodium Chloride 0.45% 1,000 mL, 1000 mL, IV Sodium Chloride 0.9% 1,000 mL, 1000 mL, IV thiamine, 100 mg= 1 tab, Oral, Daily Toradol, 15 mg= 0.5 mL, IV Push, every 6 hr, PRN vancomycin, 1250 mg= 250 mL, IV Piggyback, every 12 hr Home Albuterol (Eqv-ProAir HFA) 90 mcg/inh inhalation aerosol, 2 puffs, Inhale, every 4 hr, PRN ARIPiprazole 10 mg oral tablet, 10 mg= 1 tab, Oral, Daily aspirin 81 mg oral tablet, chewable, 1 tab, Oral, Daily, 3 refills busPIRone 15 mg oral tablet, 15 mg= 1 tab, Oral, Daily compression socks, See instructions Compression stockings, See instructions Diabetic shoes, See instructions Farxiga 5 mg oral tablet, 1 tab, Oral, Daily fluticasone 50 mcg/inh nasal spray, 2 sprays, !-Nasal, every morning, 5 refills furosemide 40 mg oral tablet, 80 mg= 2 tab, Oral, every morning, 3 refills Glucometer, See instructions glucomter, See instructions insulin glargine 100 units/mL subcutaneous solution, See Instructions, 11 refills Lancets, See instructions, 3 refills Levemir 100 units/mL subcutaneous solution, 90 units, Subcutaneous, Daily losartan 50 mg oral tablet, 50 mg= 1 tab, Oral, Daily, 4 refills metFORMIN 1000 mg oral tablet, 1000 mg= 1 tab, Oral, BID, 3 refills OPTICHAMBER MIS TOMAS pen needles 32G 4mm, See instructions, 4 refills Request diabetic shoes from [employer], See instructions Request knee high compressions stockings 30-40 mmHg from [employer]., See instructions Test strips, See instructions, 3 refills ULTICARE INSULIN SYRINGE/ 1ML/30G SYN UtiCare Insulin Syringe 30GX5/15 1ML, See Instructions, 3 refills Electronically Signed on 07/30/23 01:[address] Progress note * Geovanny Sevilla PA-C: PERFORM Event Display: Progress Note - Physician Authored Date: [id number] MELANIECALVIN BROCK :1965 Age:58 years Sex:Male Visit Date:07/28/2023 Primary Care Physician: Marcelo Brar MD Subjective 58-year-old man??with a history of??alcohol use disorder,??type 2 diabetes,??obesity,??chronic footulcers,??hypertension,??ongoing smoking,??and venous stasis??who presented with??signs of infection??and was found to have??osteomyelitis in his left great toe??and a cecal??tumor. ?? Patient went to the OR on 08/05 for hemicolectomy. Today patient is post op day 2 and he is doing very well. He reports that the incisional abdominal pain has improved although still present of time. He reports he has had a bowel movement and is passing gas. Surgery advanced diet today from full liquid diet to heart healthy diet.? Pathology results from colonoscopy showed tubulovillous adenoma however still pending pathology results for the hemicolectomy. Surgery reports that he is almost certain that this is colon cancer and will need follow up with surgical oncology and podiatry for OM of the great toe on the left.? Patient denies chest pain, shortness of breath, headache, dizziness, lightheadedness, nausea or vomiting. Will continue to encourage patient to get out of bed and ambulate. ?? Plan is to likely discharge patient tomorrow.?? Review of Systems Constitutional:?No??fevers,?No??chills,?No??sweats Eye:?No??recent visual problems ENT:?No??ear pain,?No??nasal congestion,?No??sore throat Respiratory:?No??shortness of breath,?No??cough Cardiovascular:?No??Chest pain,?No??palpitations,?No??syncope Gastrointestinal:?Nonausea,?No??vomiting,?No??diarrhea Genitourinary:?No??hematuria Stefano/Lymph:?No??bruising tendency,?No??swollen lymph glands Endocrine:?No??excessive thirst,??No??excessive hunger Musculoskeletal:??No??back pain,??No??neck pain,??No??joint pain,??No??muscle pain,??No??decreased range of motion Integumentary:?No??rash,?No??pruritus,?No??abrasions Neurologic: Alert & oriented X 4 Psychiatric:?No??anxiety,?No??depression Objective Vitals & Measurements T:??36.1?C ??(Temporal Artery)?? TMIN:??36.1?C ??(Temporal Artery)?? TMAX:??36.9?C ??(Temporal Artery)?? HR:??54??(Peripheral)?? RR:??20?? BP:??130/65?? SpO2:??99%?? WT:??123.85??kg?? Pain Score:??0?? O2 Therapy:??Room air?? Physical Exam Physical Exam General: Alert and oriented??man who appears stated age in no acute distress; ??apparent full command of cognitive faculties HEENT: Normocephalic; normal facial movements; extraocular muscle movements apparently normal; necksupple without adenopathy; no evidence of thyromegaly or nodularity Cardiovascular: S1-S2; ??no noted murmurs, rubs or gallops Pulmonary: Good air movement bilaterally with no wheezes, rales or rhonchi Abdomen: Soft, tender to palpation, midline incision with surgical dressings in place, pain around incision,?? no organomegaly; chronically distended Skin: Warm and dry; no rashes;??chronic lower extremity skin changes consistent with venous stasis Neurological: Moves all extremities; no focal deficits; cranial nerves 3, 4, 6, 7, 8, 11, and 12 within normal limits Musculoskeletal:??Chronic edema; left great toe is bandaged Psych: no abnormal thoughts or hallucinations evident.?? Lab Results Last 24 Hours?? Chemistry ? Event Name?? Event Result?? Date/Time?? Sodium Level 137 mmol/L 08/08/23 06:58:45 Potassium Level 3.6 mmol/L 08/08/23 06:58:45 Chloride Level 102 mmol/L 08/08/23 06:58:45 CO2 27 mmol/L 08/08/23 06:58:45 BUN 4 mg/dL??Low 08/08/23 06:58:45 Glucose Level 123 mg/dL??High 08/08/23 06:58:45 Creatinine Level 0.69 mg/dL??Low 08/08/23 06:58:45 eGFR AA 08/08/23 06:58:45 eGFR Non-AA 08/08/23 06:58:45 Calcium Level 8.3 mg/dL??Low 08/08/23 06:58:45 Magnesium Level 1.7 mg/dL??Low 08/08/23 06:58:45 Glucose POC 170 mg/dL??High 08/08/23 11:29:00 ? Hematology ? Event Name?? Event Result?? Date/Time?? WBC 9.8 x10^3/mcL 08/08/23 06:58:45 RBC 3.9 x10^6/mcL??Low 08/08/23 06:58:45 Hgb 8.6 g/dL??Low 08/08/23 06:58:45 Hct 29.7 %??Low 08/08/23 06:58:45 MCV 75.6 fL??Low 08/08/23 06:58:45 MCH 21.9 pg??Low 08/08/23 06:58:45 MCHC 29 g/dL??Low 08/08/23 06:58:45 RDW-CV 23.9 %??High 08/08/23 06:58:45 Platelets 299 x10^3/mcL 08/08/23 06:58:45 ? Assessment/Plan 1.??Colon cancer??C18.9 ??S/p open right colectomy day 2 Continues to do very well postoperatively?? Reports incisional pain is improving Patient reports he has had a bowel movement and continues to pass gas Continue to encourage post op ambulation?? High suspicion of colon cancer clinically and with elevated CEA, concern for metastatic disease with pulmonary nodules seen on imaging?? Diet advanced to full cardiac healthy diet Will need referral to surgical oncology at the time of discharge Continue DVT ppx with lovenox?? Colonoscopy path reports show tubulovillous adenoma, however sample sent from hemicolectomy resultsare still pending Continue to monitor closely postoperatively?? 2.??Osteomyelitis of toe??M86.9 ??Continues to refuse amputation of the left great toe due to osteomyelitis despite being educated in regards to the risk of not amputating Would like to continue seeing his cellular tower climber for further outpatient management Continue antibiotics?? 3.??Diabetic ulcer of left foot??E11.621 ?Continue wound care and antibiotics?? 4.??Colitis??K52.9 ??Concern that there may have been an infectious component to his abdominal inflammation evident onCT scan?? Will continue antibiotics?? 5.??Alcohol use disorder??F10.90 ?No evidence of withdrawal seen here during hospital course?? 6.??Schizophrenia??F20.9 ?Continue aripiprazole?? 7.??Pulmonary nodule??R91.1 ??Will need to follow-up with oncology and likely need a PET scan in the future??but will have thistumor resected??as it has been bleeding??and he is needed 2 units??replacement. 8.??Type 2 diabetes mellitus??E11.9 ??Control has been reasonable.?? Continue current??insulin regimen. 9.??Anemia??D64.9,??Anemia??D64.9,??Anemia??D64.9 ??Transfused 2 units so far. ??Continue to follow his??hemoglobin.?? This is??related to blood loss??in the setting of??colon cancer. Electronically Signed on 08/08/23 02:41 PM Geovanny Sevilla PA-C * Teena English MD: PERFORM Event Display: Progress Note - Physician Authored Date: [id number] Case was discussed and agree with assessment and plan as above. Electronically Signed on 08/09/23 07:20 AM Teena English MD * Fuentes Ellison DO: PERFORM Event Display: Progress Note - Physician Authored Date: [id number] FABRICIO CALVIN Liang :1965 Age:58 years Sex:Male Visit Date:07/28/2023 Primary Care Physician: Marcelo Brar MD Subjective VSS. Passing gas. Had bowel movement. He wants to eat more.?? Review of Systems see HPI Objective Vitals & Measurements T:??36.1?C ??(Temporal Artery)?? TMIN:??36.1?C ??(Temporal Artery)?? TMAX:??37.3?C ??(Temporal Artery)?? HR:??52??(Peripheral)?? RR:??18?? BP:??130/72?? SpO2:??99%?? Pain Score:??3?? O2 Therapy:??Room air?? Physical Exam NAD, cooperative ?? Non labored breathing ?? RR ?? Soft, NT, ND, incision cDI, appropriate incisional TTP Assessment/Plan 1.??Colon cancer??C18.9 ??POD 2 right hemicolectomy; doing well. Return of bowel function and passing gas. Patient can be advanced to GIS diet. Pathology is still pending but almost certainly this is colon cancer. He will need follow up with surgical oncology and podiatry for OM of great toe on left.?? 2.??Osteomyelitis of toe??M86.9 3.??Diabetic ulcer of left foot??E11.621 4.??Colitis??K52.9 5.??Alcohol use disorder??F10.90 6.??Schizophrenia??F20.9 7.??Pulmonary nodule??R91.1 8.??Type 2 diabetes mellitus??E11.9 9.??Anemia??D64.9,??Anemia??D64.9,??Anemia??D64.9 Orders: Diet Order, 08/08/23 7:55:00 EDT, Heart Healthy Electronically Signed on 08/08/23 07:57 AM SaeFuentes Luna DO * Geovanny Sevilla PA-C: PERFORM Event Display: Progress Note - Physician Authored Date: [id number] CALVIN ARDON :1965 Age:58 years Sex:Male Visit Date:07/28/2023 Primary Care Physician: Marcelo Brar MD Subjective 58-year-old man??with a history of??alcohol use disorder,??type 2 diabetes,??obesity,??chronic footulcers,??hypertension,??ongoing smoking,??and venous stasis??who presented with??signs of infection??and was found to have??osteomyelitis in his left great toe??and a cecal??tumor. ?? Yesterday patient went to the OR for a laparoscopic right hemicolectomy however during this was converted to an open procedure. Patient is post-op day 1 and is doing well. He reports he does have some pain in his abdomen around the area of his incision which is expected. Patient is tolerating a clear liquid diet and denies any nausea and vomiting. He reports he has not passed gas yet or had a bowel movement. Surgery reports he can advance diet to full liquids this morning and reported that the lang catheter can be removed today.? Patient denies chest pain, shortness of breath, headache, dizziness, lightheadedness, nausea or vomiting. Encouraged patient to get out of bed this morning and start ambulating, pt seemed nervous to do so because of his incisional abdominal pain however reported that he would try.?? Review of Systems Constitutional:?No??fevers,?No??chills,?No??sweats Eye:?No??recent visual problems ENT:?No??ear pain,?No??nasal congestion,?No??sore throat Respiratory:?No??shortness of breath,?No??cough Cardiovascular:?No??Chest pain,?No??palpitations,?No??syncope Gastrointestinal:?Nonausea,?No??vomiting,?No??diarrhea Genitourinary:?No??hematuria Stefano/Lymph:?No??bruising tendency,?No??swollen lymph glands Endocrine:?No??excessive thirst,??No??excessive hunger Musculoskeletal:??No??back pain,??No??neck pain,??No??joint pain,??No??muscle pain,??No??decreased range of motion Integumentary:?No??rash,?No??pruritus,?No??abrasions Neurologic: Alert & oriented X 4 Psychiatric:?No??anxiety,?No??depression Objective Physical Exam General: Alert and oriented??man who appears stated age in no acute distress; ??apparent full command of cognitive faculties HEENT: Normocephalic; normal facial movements; extraocular muscle movements apparently normal; necksupple without adenopathy; no evidence of thyromegaly or nodularity Cardiovascular: S1-S2; ??no noted murmurs, rubs or gallops Pulmonary: Good air movement bilaterally with no wheezes, rales or rhonchi Abdomen: Soft, tender to palpation, midline incision with surgical dressings in place, pain around incision,?? no organomegaly; chronically distended Skin: Warm and dry; no rashes;??chronic lower extremity skin changes consistent with venous stasis Neurological: Moves all extremities; no focal deficits; cranial nerves 3, 4, 6, 7, 8, 11, and 12 within normal limits Musculoskeletal:??Chronic edema; left great toe is bandaged Psych: no abnormal thoughts or hallucinations evident.?? Lab Results Last 24 Hours?? Chemistry ? Event Name?? Event Result?? Date/Time?? Sodium Level 140 mmol/L 08/07/23 06:45:00 Potassium Level 4.1 mmol/L 08/07/23 06:45:00 Chloride Level 105 mmol/L 08/07/23 06:45:00 CO2 28 mmol/L 08/07/23 06:45:00 Alk Phos 76 unit/L 08/07/23 06:45:00 AST 10 unit/L??Low 08/07/23 06:45:00 ALT 15 unit/L??Low 08/07/23 06:45:00 BUN 6 mg/dL??Low 08/07/23 06:45:00 Glucose Level 138 mg/dL??High 08/07/23 06:45:00 Creatinine Level 0.64 mg/dL??Low 08/07/23 06:45:00 eGFR AA 109 08/07/23 06:45:00 eGFR Non-AA 109 08/07/23 06:45:00 Calcium Level 7.9 mg/dL??Low 08/07/23 06:45:00 Protein Total 5.7 g/dL??Low 08/07/23 06:45:00 Albumin Level 2 g/dL??Low 08/07/23 06:45:00 Bilirubin Total 0.5 mg/dL 08/07/23 06:45:00 Magnesium Level 1.8 mg/dL 08/07/23 06:45:00 Glucose POC 138 mg/dL??High 08/07/23 07:43:00 ? Hematology ? Event Name?? Event Result?? Date/Time?? WBC 10.8 x10^3/mcL??High 08/07/23 06:45:00 RBC 4.1 x10^6/mcL??Low 08/07/23 06:45:00 Hgb 8.8 g/dL??Low 08/07/23 06:45:00 Hct 30.7 %??Low 08/07/23 06:45:00 MCV 75.6 fL??Low 08/07/23 06:45:00 MCH 21.7 pg??Low 08/07/23 06:45:00 MCHC 28.7 g/dL??Low 08/07/23 06:45:00 RDW-CV 23.7 %??High 08/07/23 06:45:00 Platelets 308 x10^3/mcL 08/07/23 06:45:00 ? Assessment/Plan 1.??Colon cancer??C18.9 S/p open right colectomy day 1?? Patient reports he is doing well postoperatively, is complaining of some incisional pain Denies passing gas or having a bowel movement as of this time?? High suspicion of colon cancer clinically and with elevated CEA, concern for metastatic disease with pulmonary nodules seen on imaging?? Will encourage post-op ambulation today Per surgery request will advance diet to a full liquid diet today and also will d/c lang catheter?? Will need referral to surgical oncology at the time of discharge Continue DVT ppx with lovenox?? Pending biopsy results Continue to monitor closely postoperatively?? 2.??Osteomyelitis of toe??M86.9 Continues to refuse amputation of the left great toe due to osteomyelitis despite being educated inregards to the risk of not amputating Would like to continue seeing his cellular tower climber for further outpatient management Continue antibiotics?? 3.??Diabetic ulcer of left foot??E11.621 ??Continue wound care and antibiotics?? 4.??Colitis??K52.9 Concern that there may have been an infectious component to his abdominal inflammation evident on CT scan?? Will continue antibiotics?? 5.??Alcohol use disorder??F10.90 ??No evidence of withdrawal seen here during hospital course?? 6.??Schizophrenia??F20.9 ??Continue aripiprazole?? 7.??Pulmonary nodule??R91.1 Will need to follow-up with oncology and likely need a PET scan in the future??but will have this tumor resected??as it has been bleeding??and he is needed 2 units??replacement. 8.??Type 2 diabetes mellitus??E11.9 Control has been reasonable.?? Continue current??insulin regimen.?? 9.??Anemia??D64.9,??Anemia??D64.9,??Anemia??D64.9 Transfused 2 units so far. ??Continue to follow his??hemoglobin.?? This is??related to blood loss??in the setting of??colon cancer. Orders: HYDROmorphone 1 mg/mL injectable solution, 0.4 mg = 0.4 mL, Slow IV Push, Soln, every 2 hr for 30 days, PRN pain, moderate, First Dose: 08/06/23 17:26:00 EDT, Stop Date: 09/05/23 17:25:00 EDT, Physician Stop, Routine morphine 2 mg/mL preservative-free injectable solution, 2 mg = 1 mL, IV Push, Soln-IV, every 2 hr for 3 days, PRN pain, severe, First Dose: 08/06/23 17:26:00 EDT, Stop Date: 08/09/23 17:25:00 EDT, Physician Stop, Routine Diet Order, 08/07/23 7:56:00 EDT, Full Liquid Nursing Task, 08/07/23 7:56:00 EDT, Stop date 08/07/23 7:56:00 EDT Electronically Signed on 08/07/23 09:50 AM Geovanny Sevilla PA-C * Teena English MD: PERFORM Event Display: Progress Note - Physician Authored Date: [id number] Case was discussed and agree with assessment and plan as above. Electronically Signed on 08/07/23 09:59 AM Teena English MD History and physical note * Teena English MD: PERFORM Event Display: History and Physical Authored Date: [id number] CALVIN ARDON :1965 Age:58 years Sex:Male Visit Date:07/28/2023 Primary Care Physician: Marcelo Brar MD Chief Complaint [facility] called EMS for altered mental status and increased fever. EMS states that his fever has increased from 102.6 to 103.5. History of Present Illness The patient is a 58-year-old male with past medical history of schizophrenia, insulin-dependent type 2 diabetes mellitus, morbid obesity, history of anxiety, hypertension who presented to the emergency department with a chief complaint of fever.?? Apparently [facility] nurses went to assess the patient and he was found to have a Tmax of 103.5 ??F with altered mental status and was brought to the emergency department.?? Patient appears to be alert and oriented at bedside and states that he generally felt unwell for 1 day.?? Ulceration on the bilateral feet but worse on the left foot.?? Does report having fevers but denies any chills, chest pain, dyspnea, cough, abdominal pain, nausea, vomiting, diarrhea, lightness or dizziness.?? Also reports drinking 3-1/2 25 ounce beers daily.?? In the emergency department he was found to have fever with Tmax of 39.3 ??C, heart rate on arrival of 109 bpm, respiratory rate between 21 to 25 breaths/min, blood pressure as low as 94/49 mmHg and O2 saturation between 94 to 100% on room air.?? Labs are significant for WBC count of 22.6, hemoglobin 9.0, plateletcount 299 with 3% bands, sodium of 132, chloride 96, BUN 21, creatinine 1.19, albumin 3.1, magnesium 1.6, CRP high-sensitivity 43.16.?? UA was unremarkable.?? COVID test was negative.?? X-ray of the foot on the left side was negative for acute osteomyelitis.?? CT chest abdomen pelvis revealed no acute chest findings, pulmonary nodule measuring [address] follow-up in 3 months, PET scan or biopsy.?? In my abdomen acute inflammation and wall thickening of the cecum and ascending colon with prominent adjacent pericolonic and pelvic adenopathy with differential considerations including colitis, diverticulitis and ultimately a neoplastic process. Review of Systems Constitutional:?Positive for??fevers,?Positive for??chills,?No??sweats Eye:?No??recent visual problems ENT:?No??ear pain,?No??nasal congestion,?No??sore throat Respiratory:?No??shortness of breath,?No??cough Cardiovascular:?No??Chest pain,?No??palpitations,?No??syncope Gastrointestinal:?Nonausea,?No??vomiting,?No??diarrhea Genitourinary:?No??hematuria?? Stefano/Lymph:?No??bruising tendency,?No??swollen lymph glands Endocrine:?No??excessive thirst,??No??excessive hunger Musculoskeletal:??Positive for toe ulcers and redness Integumentary:?No??rash,?No??pruritus,?No??abrasions Neurologic:??Alert & oriented X 4 Psychiatric:?No??anxiety,?No??depression Physical Exam Vitals & Measurements T:??37.3?C ??(Temporal Artery)?? TMIN:??37.3?C ??(Temporal Artery)?? TMAX:??39.3?C ??(Temporal Artery)?? HR:??90??(Peripheral)?? RR:??19?? BP:??114/62?? SpO2:??100%?? HT:??170??cm?? WT:??115.2??kg?? BMI:??39.86?? Pain Score:??0?? O2 Therapy:??Room air?? General:??Alert and oriented, obese no??acute distress Eye:??PERRL, EOMI,?Normal?conjunctiva HENT:??Normocephalic,??Normal?hearing, moist oral mucosa,?No??scleral icterus,?No??sinustenderness Neck:??Supple, non-tender,?No??JVD,?No??lymphadenopathy Lungs:??Clear to auscultation and percussion,?Non-labored?respiration Heart:?Normal?rate,?Regular??rhythm,?No??murmur,?No??gallop,?No??edema Abdomen:??Soft, non-tender, non-distended,?Normal?bowel sounds,?No??masses Musculoskeletal:?Normal?range of motion and strength,?No??tenderness,?No??swelling Skin:??Skin is warm, dry and pink,?No??rashes,??multiple??toe lesions on bilateral plantar aspects of feet is worse on the left side??with??ulcer??with some discharge in the plantar aspect of the left great toe Neurologic:??Awake, alert and oriented X4, CN II-XII grossly??intact Psychiatric:??Cooperative, appropriate mood and affect Assessment/Plan 1.??Sepsis??A41.9 ??58-year-old male who presents with fevers and altered mental status brought in after VNA had??found he was significantly??febrile with a Tmax of 103.5 ??F meeting sepsis and SIRS criteria with tachycardia, leukocytosis of 22 with bands??3%, tachypnea.?? Source of infection appears to be lower extremity infected diabetic??ulcers worse on the plantar aspect of the great toe.?? Obtain blood cultures we will follow-up on this. ??Will attempt to obtain wound cultures.?? Will have surgical consultation. ??Will consider MRI to rule out osteomyelitis.?? Continue??vancomycin??will add cefepime 2 g IV every 12 hours??and Flagyl 500 mg IV every 8 hours..?? Continue normal saline at 100 mL/h.?? Patient with fever appears to be more septic. ??Holding aripiprazole??does not appear to be neuroleptic malignant syndrome. 2.??Cellulitis of leg??L03.119 ??As above. 3.??Toe ulcer??L97.509 ??As above. 4.??Alcohol use with withdrawal??F10.939 ??Patient drinks 3-1/2??25 ounce??beers on a daily basis. ??High likelihood of alcohol withdrawal. ??Continue thiamine, folic acid, vitamin supplementation. ??Continue with CIWA protocol and assessments. ??Continue benzodiazepines.?? More frequent vital signs.?? 5.??Anemia??D64.9 ??Anemia with a hemoglobin of 9.0. ??No signs of??blood loss. ??Continue to monitor. 6.??Colitis??K52.9 ??CT scan revealed??acute inflammation wall thickening of the cecum and ascending colon wall with prominent adjacent pericolonic and pelvic adenopathy??possibly colitis versus diverticulitis versus neoplasm??versus possibly inflammatory however??no diarrhea or blood in stools??and no abdominal pain.?? Continue??cefepime 2 g IV every 12 hours and Flagyl 500 mg IV every 12 hours.?? Obtaining C. difficile testing although not having diarrhea??and significantly less likely.?? Patient will need??colonoscopy??once inflammation has??decreased. ??Most likely diverticulitis. 7.??Alcohol abuse??F10.10 ??As above. 8.??Diabetes mellitus, type II uncontrolled??E11.9 ? Holding??home oral diabetic agents. ??Insulin sliding scale. ??Continue long-acting insulin Lantus. ??Chemstrips AC plus at bedtime. ??Diabetic diet. 9.??Severe obesity??E66.01 ??Lifestyle modifications and weight loss. 10.??Schizophrenia??F20.9 ??Holding home or aripiprazole until??improved clinically not septic??to prevent further worsening of encephalopathy.. 11.??Pulmonary nodule??R91.1 Orders: albuterol 2.5 mg/3 mL (0.083%) inhalation solution, 2.5 mg = 3 mL, Nebulized Inhalation, Soln, QID RT, PRN shortness of breath, First Dose: 07/28/23 18:05:00 EDT, Routine aspirin, 81 mg = 1 tab, Oral, Tab-Chew, Daily, First Dose: 07/29/23 9:00:00 EDT, Routine cefepime, 2 g = 1 EA, IV Piggyback, Powder-Inj, every 12 hr, Antibiotic Indication Skin/soft tissue, diabetic foot, First Dose: 07/28/23 19:41:00 EDT, Routine, 200 mL/hr diazePAM, 10 mg = 2 tab, Oral, Tab, every 1 hr, PRN other (see comment), First Dose: 07/28/23 18:10:00 EDT, NOW diazePAM, 5 mg = 1 tab, Oral, Tab, every 6 hr, First Dose: 07/28/23 18:10:00 EDT, NOW diazePAM, 10 mg = 2 mL, IV Push, Soln, every 1 hr, PRN other (see comment), First Dose: 07/28/23 18:10:00 EDT, NOW diazePAM, 10 mg = 2 tab, Oral, Tab, every 1 hr, PRN other (see comment), First Dose: 07/28/23 18:10:00 EDT, NOW diazePAM, 10 mg = 2 tab, Oral, Tab, every 6 hr, First Dose: 07/28/23 18:10:00 EDT, NOW diazePAM, 5 mg = 1 mL, IV Push, Soln, every 1 hr, PRN other (see comment), First Dose: 07/28/23 18:10:00 EDT, NOW diazePAM, 10 mg = 2 mL, IV Push, Soln, every 6 hr, First Dose: 07/28/23 18:10:00 EDT, NOW diazePAM, 5 mg = 1 mL, IV Push, Soln, every 6 hr, First Dose: 07/28/23 18:10:00 EDT, NOW diazePAM, 10 mg = 2 mL, IV Push, Soln, every 10 min, PRN other (see comment), First Dose: 07/28/23 18:10:00 EDT, NOW folic acid, 1 mg = 1 tab, Oral, Tab, Daily for 3 days, First Dose: 07/29/23 9:00:00 EDT, Stop Date:08/01/23 8:59:00 EDT, Physician Stop, Routine insulin glargine, 40 units = 0.4 mL, Subcutaneous, Soln, every night at bedtime, First Dose: 07/28/23 21:00:00 EDT, Routine multivitamin, 1 tab, Oral, Tab, Daily, First Dose: 07/28/23 18:10:00 EDT, NOW thiamine, 100 mg = 1 tab, Oral, Tab, Daily for 3 days, First Dose: 07/29/23 9:00:00 EDT, Stop Date:08/01/23 8:59:00 EDT, Physician Stop, Routine vancomycin - Pharmacy to Dose, pharmacy to dose, IV Piggyback, Once, Antibiotic Indication Skin/soft tissue, diabetic foot, First Dose: 07/28/23 20:00:00 EDT, Stop Date: 07/28/23 20:00:00 EDT Notify Provider, 07/28/23 18:10:00 EDT, Ongoing Nursing Task, 07/28/23 18:10:00 EDT, Once, Stop date 07/28/23 18:10:00 EDT Nursing Task, 07/28/23 18:10:00 EDT, Constant order, CIWA reassessment Q2hr & PRN; For Very Mild Withdrawal CIWA < 10 & Mild Withdrawal CIWA 10-15 Nursing Task, 07/28/23 18:10:00 EDT, Constant order, CIWA reassessment Q1hr & PRN; For ModerateWithdrawal CIWA 16 - 20 & Severe Withdrawal CIWA > 20 PSO Admit to Inpatient, Semi-Private Telemetry, Inpatient, Teena English MD, 07/28/23 18:02:00 EDT, 07/28/23 18:02:00 EDT, 07/28/23 18:02:00 EDT, 2 midnights or more but less than 96 hrs Urine Culture, Urine, Routine collect, RT - Routine, 07/28/23 18:12:00 EDT, Once, Lab Collect Vital Signs, 07/28/23 18:10:00 EDT, every 1 hr Vital Signs, 07/28/23 18:10:00 EDT, every 2 hr Problem List/Past Medical History Ongoing Alcohol abuse Alcohol use with withdrawal Allergic rhinitis Arteritis Diabetes mellitus, type II uncontrolled Dystrophic nail Foot abscess Generalized anxiety disorder Hypertensive disorder 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 Localized edema Mononeuropathy due to type 2 diabetes mellitus Nicotine dependence non-pressure ulcer lower limb Onychomycosis of multiple toenails with type 2 diabetes mellitus Pulmonary nodule Puncture wound of skin Right arm pain Right upper quadrant pain Schizophrenia Sepsis Severe obesity Tinea pedis Venous stasis Venous stasis ulcer of left ankle Venous stasis ulcer of right ankle Historical No qualifying data Medications Inpatient albuterol 2.5 mg/3 mL (0.083%) inhalation solution, 2.5 mg= 3 mL, Nebulized Inhalation, QID RT, PRN aspirin, 81 mg= 1 tab, Oral, Daily cefepime diazePAM, 5 mg= 1 tab, Oral, every 6 hr diazePAM, 5 mg= 1 mL, IV Push, every 6 hr diazePAM, 10 mg= 2 tab, Oral, every 6 hr diazePAM, 10 mg= 2 mL, IV Push, every 6 hr diazePAM, 10 mg= 2 tab, Oral, every 1 hr, PRN diazePAM, 5 mg= 1 mL, IV Push, every 1 hr, PRN diazePAM, 10 mg= 2 tab, Oral, every 1 hr, PRN diazePAM, 10 mg= 2 mL, IV Push, every 1 hr, PRN diazePAM, 10 mg= 2 mL, IV Push, every 10 min, PRN folic acid, 1 mg= 1 tab, Oral, Daily insulin glargine, 40 units= 0.4 mL, Subcutaneous, every night at bedtime multivitamin, 1 tab, Oral, Daily thiamine, 100 mg= 1 tab, Oral, Daily vancomycin - Pharmacy to Dose, pharmacy to dose, IV Piggyback, Once Home Albuterol (Eqv-ProAir HFA) 90 mcg/inh inhalation aerosol, 2 puffs, Inhale, every 4 hr, PRN ARIPiprazole 10 mg oral tablet, 10 mg= 1 tab, Oral, Daily aspirin 81 mg oral tablet, chewable, 1 tab, Oral, Daily, 3 refills busPIRone 15 mg oral tablet, 15 mg= 1 tab, Oral, Daily compression socks, See instructions Compression stockings, See instructions Diabetic shoes, See instructions Farxiga 5 mg oral tablet, 1 tab, Oral, Daily fluticasone 50 mcg/inh nasal spray, 2 sprays, !-Nasal, every morning, 5 refills furosemide 40 mg oral tablet, 80 mg= 2 tab, Oral, every morning, 3 refills Glucometer, See instructions glucomter, See instructions insulin glargine 100 units/mL subcutaneous solution, See Instructions, 11 refills Lancets, See instructions, 3 refills Lantus 100 units/mL subcutaneous solution Levemir 100 units/mL subcutaneous solution, 90 units, Subcutaneous, Daily losartan 50 mg oral tablet, 50 mg= 1 tab, Oral, Daily, 4 refills metFORMIN 1000 mg oral tablet, 1000 mg= 1 tab, Oral, BID, 3 refills ohm Allergy Relief 10 mg oral tablet, 1 tab, Oral, Daily OPTICHAMBER MIS TOMAS pen needles 32G 4mm, See instructions, 4 refills Request diabetic shoes from [employer], See instructions Request knee high compressions stockings 30-40 mmHg from [employer]., See instructions Test strips, See instructions, 3 refills Trulicity Pen 1.5 mg/0.5 mL subcutaneous solution, 1.5 mg= 0.5 mL, Subcutaneous, every week ULTICARE INSULIN SYRINGE/ 1ML/30G SYN UtiCare Insulin Syringe 30GX5/15 1ML, See Instructions, 3 refills Allergies No Known Allergies No Known Medication Allergies Social History Alcohol Current, Beer, Daily Electronic Cigarette/Vaping Electronic Cigarette Use: Never. Tobacco Current everyday tobacco user Tobacco Use:. 1.5 packs a day per day. Family History Cancer: Mother. Immunizations Vaccine Date Status tetanus-diphth toxoids (Td) adult/adol 06/22/2021 Recorded Comments : tolerated well influenza virus vaccine, live 03/24/2020 Recorded Comments : pt tolerated well influenza virus vaccine, live 01/03/2017 Recorded influenza virus vaccine, inactivated 01/05/2016 Recorded pneumococcal 23-polyvalent vaccine 02/16/2015 Recorded influenza virus vaccine, inactivated 02/16/2015 Recorded influenza virus vaccine, inactivated 01/26/2014 Recorded influenza virus vaccine, inactivated 12/11/2011 Recorded influenza virus vaccine, inactivated 11/10/2010 Recorded tetanus/diphth/pertuss (Tdap) adult/adol 11/10/2010 Recorded influenza virus vaccine, inactivated 05/04/2010 Recorded influenza virus vaccine, inactivated 04/20/2009 Recorded Novel [id number], all formulation 04/20/2009 Recorded tetanus-diphth toxoids (Td) adult/adol 02/23/2002 Recorded Lab Results Test Name Test Result Date/Time WBC 22.6 x10^3/mcL 07/28/2023 13:50 EDT RBC 4.4 x10^6/mcL 07/28/2023 13:50 EDT Hgb 9.0 g/dL 07/28/2023 13:50 EDT Hct 30.9 % 07/28/2023 13:50 EDT MCV 69.6 fL 07/28/2023 13:50 EDT MCH 20.3 pg 07/28/2023 13:50 EDT MCHC 29.1 g/dL 07/28/2023 13:50 EDT RDW-CV 17.5 % 07/28/2023 13:50 EDT Platelets 299 x10^3/mcL 07/28/2023 13:50 EDT Segs Man 91 % 07/28/2023 13:50 EDT Lymph Man 0 % 07/28/2023 13:50 EDT Rogers Man 6 % 07/28/2023 13:50 EDT Eos Man 0 % 07/28/2023 13:50 EDT Baso Man 0 % 07/28/2023 13:50 EDT Band Man 3 % 07/28/2023 13:50 EDT Abs Neut Man 21.2 x10^3/mcL 07/28/2023 13:50 EDT RBC Morph Abnormal 07/28/2023 13:50 EDT Anisocyte Moderate 07/28/2023 13:50 EDT Hypochromia Moderate 07/28/2023 13:50 EDT Microcyte Moderate 07/28/2023 13:50 EDT Poik Rare 07/28/2023 13:50 EDT Polychrom Rare 07/28/2023 13:50 EDT Slide Review Man Diff 07/28/2023 13:50 EDT ESR, Westergren 15 mm/hr 07/28/2023 13:50 EDT Sodium Level 132 mmol/L 07/28/2023 13:50 EDT Potassium Level 4.6 mmol/L 07/28/2023 13:50 EDT Chloride Level 96 mmol/L 07/28/2023 13:50 EDT CO2 29 mmol/L 07/28/2023 13:50 EDT Alk Phos 118 unit/L 07/28/2023 13:50 EDT AST 31 unit/L 07/28/2023 13:50 EDT ALT 37 unit/L 07/28/2023 13:50 EDT BUN 21 mg/dL 07/28/2023 13:50 EDT Glucose Level 193 mg/dL 07/28/2023 13:50 EDT Creatinine Level 1.19 mg/dL 07/28/2023 13:50 EDT eGFR AA 70 07/28/2023 13:50 EDT eGFR Non-AA 70 07/28/2023 13:50 EDT Calcium Level 8.8 mg/dL 07/28/2023 13:50 EDT Protein Total 7.2 g/dL 07/28/2023 13:50 EDT Albumin Level 3.1 g/dL 07/28/2023 13:50 EDT Bilirubin Total 0.6 mg/dL 07/28/2023 13:50 EDT Lactic Acid Lvl 1.7 mmol/L 07/28/2023 13:50 EDT Magnesium Level 1.6 mg/dL 07/28/2023 13:50 EDT CRP High Sens 43.16 mg/L 07/28/2023 13:50 EDT UA Color YELLOW. 07/28/2023 14:11 EDT UA Appear CLEAR. 07/28/2023 14:11 EDT UA Glucose 3+ 07/28/2023 14:11 EDT UA Bili NEGATIVE 07/28/2023 14:11 EDT UA Ketones NEGATIVE 07/28/2023 14:11 EDT UA Spec Grav 1.010 07/28/2023 14:11 EDT UA Blood NEGATIVE 07/28/2023 14:11 EDT UA pH 5.0 07/28/2023 14:11 EDT UA Protein NEGATIVE 07/28/2023 14:11 EDT UA Urobilinogen 0.2 Uro 07/28/2023 14:11 EDT UA Nitrite NEGATIVE 07/28/2023 14:11 EDT UA Leuk Est NEGATIVE 07/28/2023 14:11 EDT Strep A -IDNOW Not Detected 07/28/2023 13:50 EDT SARS-CoV-2 (COVID-19) RNA (ID Now) Not Detected 07/28/2023 16:04 EDT Electronically Signed on 07/28/23 07:45 PM Teena English MD Wound care management Progress note * Gisselle Leos: PERFORM Event Display: Wound Care Progress Note Authored Date: [id number] CALVIN ARDON :1965 Age:58 years Sex:Male Visit Date:07/28/2023 Primary Care Physician: Marcelo Brar MD Subjective Reason for Consult Left great??toe wound Physical Exam Incision/Wound(s) Foot Left 1(Recorded: 07/31/2023 08:14 EDT) Incision/Wound ActivityAssess Incision, Wound Dressing:Other: mepilex drsg D+I to Lt great toe Assessment/Plan 1.??Sepsis??A41.9 2.??Diabetic ulcer of left foot??E11.621 3.??Cellulitis of leg??L03.119 4.??Toe ulcer??L97.509 5.??Alcohol use with withdrawal??F10.939 6.??Colitis??K52.9 7.??Alcohol abuse??F10.10 8.??Diabetes mellitus, type II uncontrolled??E11.9 9.??Severe obesity??E66.01 10.??Schizophrenia??F20.9 11.??Pulmonary nodule??R91.1 12.??Anemia??D64.9,??Anemia??D64.9 Non-pressure chronic ulcer of other part of left foot with unspecified severity??L97.529 Patient has a left great toe wound. Surgery has been consulted for wound management. Wound Images 2023-07-28 20:49:57 2023-07-28 20:50:13 2023-07-28 20:50:38 Electronically Signed on 07/31/23 11:07 AM Gisselle Leos Discharge summary * Teena English MD: MODIFY Teena English MD: MODIFY Event Display: Discharge Summary Authored Date: [id number] CALVIN ARDON :1965 Age:58 years Sex:Male Visit Date:07/28/2023 Primary Care Physician: Marcelo Brar MD Hospital Course Discharge Summary ?? Date of admission: 07/28/23 ?? Date of discharge: 08/09/23 ?? Discharge diagnoses: Presumed Colon Cancer, Left great toe osteomyelitis ?? Consultations: General surgery, Podiatry? Operations/procedures: ?? XR Chest (07/28/23): no acute findings XR left foot (07/28/23): no radiographic evidence of acute osteomyelitis CT chest/abd/pelvis (07/28/23): pulmonary nodules the largest measuring approximately 9mm in the subpleural right lower lobe, acute inflammation and wall thickening of the cecum and ascending colon with prominent adjacent pericolonic and pelvic adenopathy - differential considerations include colitis, diverticulitis and ultimately neoplastic process must be excluded given extent of abdominopelvic adenopathy, short term follow up recommended MRI foot with and without contrast (07/30/23): soft tissue ulceration over the distal aspect of the great toe with underlying great toe distal phalanx osteomyelitis but no abscess, mild nonspecific midfoot and forefoot subcutaneous soft tissue edema without abnormal enhancement to suggest diffuse cellulitis aand without drainable abscess XR chest (08/01/23): no acute cardiopulmonary findings ?? Colonoscopy performed on 08/01 revealing large 4cm fungating mass in cecum?? Right open colectomy performed on 08/05 with findings of large colon mass of the cecum, adhesions ofthe small bowel mesentery with no obvious sings of metastasis to liver or peritoneum and significant dense adenopathy of the mesentry? Summary of presentation and course ?? This is a 58-year-old male patient with past medical history significant for but not limited to schizophrenia, insulin-dependent type 2 diabetes mellitus, morbid obesity, anxiety, hypertension,??and??alcohol abuse who presented to the emergency department on 07/28/2023??with chief complaint of a fever.?? Apparently??[facility] nurses went to assess the patient he was found to have a??high fever with altered mental status and was ultimately brought to the emergency department for evaluation. ?? In the emergency department ulcerations were noted on bilateral feet however worse on the left foot.He reported having fevers but denied chills, chest pain,dyspnea, cough, abdominal pain, nausea, vomiting, diarrhea, lightheadedness, or dizziness. ?? In the emergency department labs were significant for??white blood cell count of 22.6, hemoglobin 9.0, platelets 299 with 3% bands, sodium of 132, chloride 96, BUN 21, creatinine 1.19, albumin??3.1, magnesium 1.6, CRP high sensitive 43.16.?? X-ray of the left foot was negative for acute osteomyelitis in the emergency department. ?? Due to meeting sepsis and SIRS criteria with tachycardia, leukocytosis, and tachypnea with source of infection appearing to be the lower extremity infected due to diabetic ulcers patient was admittedfor IV antibiotics pending wound cultures and blood cultures and pending surgical consultation.Patient also needed??an MRI to rule out osteomyelitis definitively.??Upon admission patient was??initiated on vancomycin, cefepime, and Flagyl.??Sepsis??was also treated with??IV fluids. ?? MRI was obtained during hospital course and found??left great toe osteomyelitis. ??Surgery was consulted due to this finding, and??sepsis was??initially presumed??to be secondary to this.?? Surgery discussed with the patient that that??the definitive treatment??for??this would consist of amputation??of at least a portion of his left great??toe??however he was adamant that he did not want to proceed with amputation and refused multiple times.?? He did report that he has a cellular tower climber in[facility] and he would like to continue antibiotic treatment for the osteomyelitis and follow-up with her.?? Surgery did explain that the infection could get worse and spread however he did not??want to pro ceed with amputation for this hospitalization. ?? During hospital course I did reach out to Dr. Lebron who is the patient's cellular tower climber.?? She recommended that she would like to see this patient 1 to 2 days after the patient is discharged from [facility]. ??She reported??from the perspective of the osteomyelitis in the left great toe patient could be discharged??on oral antibiotics??with Augmentin or ciprofloxacin??however she agreed that??definitive treatment for this would be great toe??amputation. ?? General surgery also??consulted in regards to CT scan findings of colitis and recommended ultimately a colonoscopy as an outpatient for further assessment??and to continue antibiotic therapy for this.?? Patient was never symptomatic for the finding of colitis. ??He never had any abdominal pain, naus ea, or vomiting. ?? Unfortunately despite being on broad-spectrum antibiotics patient continued to spike fevers and hadminimal improvement in his inflammatory markers.The patient was pretty well covered with vancomycin, cefepime, and Flagyl and I think it would be unlikely that the osteomyelitis being so small only on the left great toe would be causing this.There was a colitis versus diverticulitis versus neoplasmthat was represented on CT scan abdomen and pelvis around the time of admission however patient never complained of abdominal pain, diarrhea, or blood in stools. ?? I did obtain a stool sample to test for occult blood and it was positive.?? I reached out to surgery again about this and they recommended colonoscopy in the future and to continue antibiotic therapy??however now that the patient is having continued fever and leukocytosis with elevated CRP??plan changed to have an inpatient colonoscopy.?? During hospital course patient required 2 blood transfusions due to dropping hemoglobin levels and with a positive occult blood in the stool??I was assured that colonoscopy??took place during hospital course. ?? He underwent colonoscopy during hospital course and was found to have a large cecal mass. ??Pathology results from the colonoscopy found tubulovillous adenoma.??Surgery was quite confident??that this??appeared to be a mass that was malignant in nature.?After this finding??the plan was for him toundergo colectomy??during hospital course as well. ?? The plan was initially to perform a laparoscopic right hemicolectomy however case was difficult with dense adenopathy and converted to open.?? General surgery??reported that??this almost certainly represents an advanced cancer.?? CEA was also elevated at 51 with a high??normal of 10.?? With patient's??lung nodules??seen on CT around the time of admission??this likely represents metastasis and patient will need to follow-up with oncology at discharge.?? Surgery reported that although??the colonoscopy biopsy??pathology did not show an invasive cancer??clinically and based on findings and colectomy??this is??almost certainly colon cancer. ?? After colectomy patient did very well postoperatively. ??He was able to tolerate a diet prior to discharge. ??He was able to have a bowel movement and passed gas prior to discharge.?Lang catheterwas removed??and patient was able to urinate.?? Patient remained afebrile??after surgery??and??lab results??prior to discharge??were??remarkable. ?? Wound culture results were positive for staph arlettae??which is resistant to many antibiotics but is sensitive to vancomycin which??he has been getting.?Was transition to ciprofloxacin during hospital course??for??transition at the time of discharge to oral Cipro.?Ciprofloxacin should??covermost pathogens that would infect his bowel as well. ?? Patient will be discharged home with [facility]NA services/penitentiary. ??Patient will be discharged on ciprofloxacin for his left great toe osteomyelitis??500 mg twice daily??for??the next 4 weeks.?Patient will also be sent with iron supplements??as??his anemia workup was consistent with iron deficiency anemia. ??Patient should have repeat blood work in??approximately 7 days.?Patient will need to follow-up with his cellular tower climber in [place]??who can make further adjustments to antibiotic regimen for this osteomyelitis.?? Patient will also need to follow-up with general surgery??postoperatively??for his??colectomy. ??Patient will also need to follow-up with oncology??as??findings are very s uspicious for colon cancer.?? Patient should also follow-up with his PCP in 1 to 2 weeks.?? Pathology from surgical resection of cecal mass is still pending and will require follow-up on outpatient basis. ?? I would have like to send patient to a rehab bed however patient was adament in refusing this. I dofeel that he is safe to return home. There was some initial concern that patients home was not safeto return home due to dogs that live there and patient was going to go to a crisis bed while awaiting a new apartment however patient reports that the dog is not a concern at all and patient would like to return home.? Greater than 30 minutes was spent on the day of discharge in coordinating care and arranging outpatient follow-up. Physical Exam Vitals & Measurements T:??36.3?C ??(Temporal Artery)?? TMIN:??36.1?C ??(Temporal Artery)?? TMAX:??36.3?C ??(Temporal Artery)?? HR:??52??(Peripheral)?? RR:??18?? BP:??134/71?? SpO2:??100%?? WT:??120.3??kg?? Pain Score:??3?? O2 Therapy:??Room air?? Social History Alcohol Current, Beer, Daily Electronic Cigarette/Vaping Electronic Cigarette Use: Never. Tobacco Current everyday tobacco user Tobacco Use:. 1.5 packs a day per day. Lab Results Last 24 Hours?? Chemistry Event Name?? Event Result?? Date/Time?? Sodium Level 138 mmol/L 08/09/23 06:50:00 Potassium Level 3.6 mmol/L 08/09/23 06:50:00 Chloride Level 101 mmol/L 08/09/23 06:50:00 CO2 30 mmol/L 08/09/23 06:50:00 BUN 5 mg/dL??Low 08/09/23 06:50:00 Glucose Level 113 mg/dL??High 08/09/23 06:50:00 Creatinine Level 0.74 mg/dL 08/09/23 06:50:00 eGFR AA 08/09/23 06:50:00 eGFR Non-AA 104 08/09/23 06:50:00 Calcium Level 9.1 mg/dL 08/09/23 06:50:00 Magnesium Level 1.7 mg/dL??Low 08/09/23 06:50:00 Glucose POC 108 mg/dL??High 08/09/23 07:29:00 ? Hematology Event Name?? Event Result?? Date/Time?? WBC 7.2 x10^3/mcL 08/09/23 06:50:00 RBC 4.2 x10^6/mcL??Low 08/09/23 06:50:00 Hgb 9.4 g/dL??Low 08/09/23 06:50:00 Hct 32.1 %??Low 08/09/23 06:50:00 MCV 75.7 fL??Low 08/09/23 06:50:00 MCH 22.2 pg??Low 08/09/23 06:50:00 MCHC 29.3 g/dL??Low 08/09/23 06:50:00 RDW-CV 24.2 %??High 08/09/23 06:50:00 Platelets 310 x10^3/mcL 08/09/23 06:50:00 ? 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, 170, cm, 08/02/23 12:14:00 EDT, Height, 115.2, kg, 07/28/23 13:18:00 EDT, Weight Dosing Discharge Diet Instruction, Diabetic Diet Discharge Patient, 08/09/23 8:26:00 EDT, Home with VNA Services: [facility]- [facility] All Diagnoses This Visit Colon cancer Osteomyelitis of toe Diabetic ulcer of left foot Colitis Alcohol use disorder Schizophrenia Pulmonary nodule Type 2 diabetes mellitus Anemia Anemia Anemia Patient Education Osteomyelitis, Adult Follow Up With When Contact Information [employer] 08/16/2023 03:00 PM EDT Additional Instructions: Marcelo Brar MD Within [address] [place] [address] [place] [address]- Additional Instructions: Medication Reconciliation New Prescription acetaminophen (Tylenol 325 mg oral tablet)2 tab Oral (given by mouth) every 6 hours as needed pain,mild. Refills: 0. ?? ciprofloxacin (ciprofloxacin 500 mg oral tablet)1 tab Oral (given by mouth) every 12 hours for 28 Days. Refills: 0. ?? ferrous gluconate (ferrous gluconate 324 mg (38 mg elemental iron) oral tablet)1 tab Oral (given bymouth) 2 times a day. with meals. Refills: 0. ?? Changed insulin glargine (insulin glargine 100 units/mL subcutaneous solution)Take 60 units daily subcu as directed for 30 days. titrate as needed with pcp. Refills: 11. ?? Unchanged albuterol (Albuterol (Eqv-ProAir HFA) 90 mcg/inh inhalation aerosol)2 Puffs Inhale (breathe in) every 4 hours as needed other (see comment). as needed. ?? ARIPiprazole (ARIPiprazole 10 mg oral tablet)1 tab Oral (given by mouth) every day. for 28 days. ?? aspirin (aspirin 81 mg oral tablet, chewable)1 tab Oral (given by mouth) every day. Refills: 3. ?? busPIRone (busPIRone 15 mg oral tablet)1 tab Oral (given by mouth) every day. for 28 days. ?? dapagliflozin (Farxiga 5 mg oral tablet)1 tab Oral (given by mouth) every day. Refills: 3. ?? Durable Medical Equipment for Prescription (compression [...] 3. ?? Durable Medical Equipment for Prescription (Request diabetic shoes from [employer]Please eval and Tx: 57 y.o. man. Request diabetic shoes. Hx poor control T2DM. A1c 11.6 on 04/04/2022. Venous stasis ulcer inf to med malleolus bilat. PT consult at [facility] 11/20 Onychomycosis all toenails. Loss protective sensation w/monofilament test.. Refills: 0. ?? Durable Medical Equipment for Prescription (Request knee high compressions stockings 30-40 mmHg from [employer].)Please eval and Tx: 57 y.o. man. Request knee high compression stockings 30-40 mmHg. Hx poor control T2DM. A1c 11.6 on 04/04/2022. Venous stasis ulcer inf to med malleolus bilat. PT consult at [facility] 11/20 Onychomycosis all toenails. Loss protective sensation w/monofilament test.. Refills: 0. ?? Durable Medical Equipment for Prescription (Test strips)to go with glucometer E11.9 pt tetsts once daily. Refills: 3. ?? fluticasone nasal (fluticasone 50 mcg/inh nasal spray)2 Sprays Nasal (into the nose) every morning.Refills: 5. ?? furosemide (furosemide 40 mg oral tablet)2 tab Oral (given by mouth) every morning. Refills: 3. ?? insulin pen needles 32G 4 mm (pen needles 32G 4mm)Use with insulin pen daily. Refills: 4. ?? losartan (losartan 50 mg oral tablet)1 tab Oral (given by mouth) every day. for 90 days. Refills: 4. ?? metFORMIN (metFORMIN 1000 mg oral tablet)1 tab Oral (given by mouth) 2 times a day. Refills: 3. ?? Other Prescription (OPTICHAMBER MIS TOMAS) ?? Other Prescription (ULTICARE INSULIN SYRINGE/ 1ML/30G SYN) ?? Other Prescription (UtiCare Insulin Syringe 30GX5/15 1ML)use 1x daily. Refills: 3. ?? Discontinued dulaglutide (Trulicity Pen 1.5 mg/0.5 mL subcutaneous solution)0.5 Milliliters Subcutaneous (under the skin) every week. ?? insulin detemir (Levemir 100 units/mL subcutaneous solution)90 Units Subcutaneous (under the skin) every day. Refills: 0. Electronically Signed on 08/09/23 09:25 AM Geovanny Sevilla PA-C Electronically Signed on 08/09/23 09:31 AM Teena English MD Reviewed by: Geovanny Sevilla PA-C Patient Care team information Care Team Personnel Name: Marcelo Brar MD Position: Physician Member Role: Primary Care Physician Address: Address: [address] [place] [address] [place] [address]- [facility] Position: PowerChart View Only Member Role: Informed Provider Address: Address: [facility] [address] [address]- Care Team Related Persons Name: ROZ DIXON
--- OUTSIDE RECORDS SUMMARY | 2023-09-13 16:11 | XMS_ITS ---
Author Name Unknown Address [address] [place] [address] [phone] Phone Organization Unknown Address [address] [place] [address] [phone] Phone Care Team Providers Care Noc Analyst Name Role Phone AMAYA Keen Attending Unavailable ROSE Tesfaye Primary Unavailable Results XR FOOT 3V LT* - Completed: 07/26/2023 14:59 LOINC: [place], [place] [address] PACS [employer] IN[employer] REPORT Patient Name: SHIRA REGALADO MRN: Sex: : Age: [id number] M 1965 58 Account: Accession: Admit: StayType: [id number] 07/26/2023 CLINIC Ordered: Order ID: Submitted: Ordering Provider: 07/26/2023 14:54 [id number] BSJOSELYN TANNER Completed: Technologist: Resulted: 07/26/2023 14:59 [place] 07/26/2023 19:05 Study Description: XR FOOT 3V LT Study Reason: lt foot pain 3Images were obtained. COMPARISON: None FINDINGS: There is no evidence of fracture nor diastasis of the Lisfranc joint. No osseous lesions nor erosions and no radiopaque foreign body evident. Great toe metatarsophalangeal joint appears unremarkable. Bone density normal. No osseous lesions. Moderate size inferior calcaneal spur noted. Calcification posterior calcaneus at Achilles attachment site noted. IMPRESSION: No acute osseous findings Report Digitally Signed by Deric Freitas on 07/26/2023 07:05 PM EDT Social History Type Status Start Date End [...] Diagnosis Start Date Code Code Sys tem 07/26/2023 [id number] SNOMED-CT Personal Care Team Section Performer Name Performer Role Active Date Inactive Da te
--- OUTSIDE RECORDS SUMMARY | 2023-09-13 16:12 | XMS_ITS ---
Author Name Unknown Address [address] [place] [address] [phone] Phone Organization Unknown Address [address] [place] [address] [phone] Phone Care Team Providers Care Household Coordinator Name Role Phone AMAYA Keen Attending Unavailable [...]
== END 2023-09-13 16:05 | disposition home or self-care (01) ==
LOC: LBO 16:07
PROVIDERS: PCP Family Medicine; Visit Provider Physician Assistant Medical
DX: Z13.39 Encounter for screening examination for other mental health and behavioral disorders (principal)
CPT/HCPCS: 36415; 80320

== ENCOUNTER 2024-03-18 03:39 | Outpatient (CLI) | payer MEDICARE, MEDICAID, SELFPAY ==
[2024-03-18 09:24] LABS: Abs Immature Grans 0.01 10^3/uL (0.0-0.06); Absolute Basophil Count 0.07 10^3/uL (0.0-0.2); Absolute Eosinophil Count 0.27 10^3/uL (0.0-0.7); Absolute Lymphocyte Count 1.84 10^3/uL (1.2-3.4); Absolute Monocyte Count 0.69 10^3/uL (0.1-0.8); Absolute Neutrophil Count 5.55 10^3/uL (1.2-6.7); Basophils % 0.8 %; Eosinophils % 3.2 %; HGB 18.9 g/dL (13.5-17.5); Immature Grans % 0.1 %; Lymphocytes % 21.8 %; MCH 32.4 pg (27.0-33.0); MCHC 34.4 % (32.0-36.0); MCV 94 fL (80-95); MPV 8.6 fL (8.0-11.0); Monocytes % 8.2 %; Neutrophils % 65.9 %; Platelet Count 177 10^3/uL (130-400); RBC 5.84 10^6/uL (4.36-5.78); RDW 13.6 % (11.8-14.1); RDW-SD 44.9 fL; WBC 8.43 10^3/uL (4.4-10.8)
[2024-03-18 09:44] LABS: ALT 16 U/L (16-63); AST 13 U/L (15-37); Albumin 3.9 g/dL (3.4-5.0); Alkaline Phosphatase 111 U/L (46-116); Anion Gap 3.8 mmol/L (3-11); BUN 11 mg/dL (7-18); Bilirubin, Total 0.55 mg/dL (0.2-1.0); CO2 33.2 mmol/L (21.0-32.0); Calcium 9.4 mg/dL (8.5-10.1); Chloride 102 mmol/L (98-107); Estimated GFR 86.16 (mL/min/1.73m2); Glucose 187 mg/dL (74-106); Potassium 3.9 mmol/L (3.5-5.1); Sodium 139 mmol/L (136-145); Total Protein 7.9 g/dL (6.4-8.2)
[2024-03-19 08:09] LABS: CEA 182.7 ng/mL (See Note)
== END 2024-03-18 03:40 | disposition home or self-care (01) ==
PROVIDERS: PCP Family Medicine; Visit Provider Internal Medicine Hematology & Oncology
DX: C18.9 Malignant neoplasm of colon, unspecified (principal); C78.7 Secondary malignant neoplasm of liver and intrahepatic bile duct
CPT/HCPCS: 36415; 80053; 82378; 85025

== ENCOUNTER 2024-04-08 03:51 | Outpatient (CLI) | payer MEDICARE, MEDICAID, SELFPAY ==
[2024-04-08 13:06] LABS: Abs Immature Grans 0.03 10^3/uL (0.0-0.06); Absolute Basophil Count 0.05 10^3/uL (0.0-0.2); Absolute Eosinophil Count 0.22 10^3/uL (0.0-0.7); Absolute Lymphocyte Count 1.53 10^3/uL (1.2-3.4); Absolute Monocyte Count 0.95 10^3/uL (0.1-0.8); Absolute Neutrophil Count 5.97 10^3/uL (1.2-6.7); Basophils % 0.6 %; Eosinophils % 2.5 %; HCT 56.4 % (40.0-50.0); Immature Grans % 0.3 %; Lymphocytes % 17.5 %; MCH 32.8 pg (27.0-33.0); MCHC 34.4 % (32.0-36.0); MCV 95 fL (80-95); MPV 8.3 fL (8.0-11.0); Monocytes % 10.9 %; Neutrophils % 68.2 %; Platelet Count 194 10^3/uL (130-400); RBC 5.91 10^6/uL (4.36-5.78); RDW-SD 51.2 fL; WBC 8.75 10^3/uL (4.4-10.8)
[2024-04-08 13:20] LABS: HGB 19.4 g/dL (13.5-17.5)
[2024-04-08 13:25] LABS: ALT 31 U/L (16-63); AST 26 U/L (15-37); Albumin 3.9 g/dL (3.4-5.0); Alkaline Phosphatase 155 U/L (46-116); Anion Gap 4.5 mmol/L (3-11); BUN 11 mg/dL (7-18); Bilirubin, Total 0.77 mg/dL (0.2-1.0); CO2 35.5 mmol/L (21.0-32.0); CREATININE 1.1 mg/dL (0.70-1.30); Calcium 9.5 mg/dL (8.5-10.1); Chloride 97 mmol/L (98-107); Estimated GFR 76.85 (mL/min/1.73m2); Glucose 270 mg/dL (74-106); Sodium 137 mmol/L (136-145); Total Protein 8.4 g/dL (6.4-8.2)
[2024-04-08 22:28] LABS: CEA 35.5 ng/mL (See Note)
== END 2024-04-08 03:52 | disposition home or self-care (01) ==
PROVIDERS: PCP Family Medicine; Visit Provider Internal Medicine Hematology & Oncology
DX: C18.9 Malignant neoplasm of colon, unspecified (principal); C78.7 Secondary malignant neoplasm of liver and intrahepatic bile duct
CPT/HCPCS: 36415; 80053; 82378; 85025

== ENCOUNTER 2024-06-05 09:02 | Outpatient (CLI) | payer MEDICARE, MEDICAID, SELFPAY ==
[2024-06-05 10:46] LABS: Abs Immature Grans 0.02 10^3/uL (0.0-0.06); Absolute Basophil Count 0.07 10^3/uL (0.0-0.2); Absolute Eosinophil Count 0.33 10^3/uL (0.0-0.7); Absolute Lymphocyte Count 1.52 10^3/uL (1.2-3.4); Absolute Monocyte Count 0.77 10^3/uL (0.1-0.8); Absolute Neutrophil Count 6.06 10^3/uL (1.2-6.7); Basophils % 0.8 %; Eosinophils % 3.8 %; HGB 16.8 g/dL (13.5-17.5); Immature Grans % 0.2 %; Lymphocytes % 17.3 %; MCH 32.7 pg (27.0-33.0); MCHC 33.6 % (32.0-36.0); MCV 97 fL (80-95); MPV 8.5 fL (8.0-11.0); Monocytes % 8.8 %; Neutrophils % 69.1 %; Platelet Count 231 10^3/uL (130-400); RBC 5.14 10^6/uL (4.36-5.78); RDW 12.9 % (11.8-14.1); RDW-SD 46.7 fL; WBC 8.77 10^3/uL (4.4-10.8)
[2024-06-05 10:59] LABS: ALT 31 U/L (16-63); AST 19 U/L (15-37); Albumin 3.3 g/dL (3.4-5.0); Alkaline Phosphatase 142 U/L (46-116); Anion Gap 6.7 mmol/L (3-11); BUN 9 mg/dL (7-18); Bilirubin, Total 0.4 mg/dL (0.2-1.0); CO2 33.3 mmol/L (21.0-32.0); CREATININE 0.9 mg/dL (0.70-1.30); Calcium 9.5 mg/dL (8.5-10.1); Chloride 99 mmol/L (98-107); Estimated GFR 97.78 (mL/min/1.73m2); Glucose 217 mg/dL (74-106); Potassium 4.1 mmol/L (3.5-5.1); Sodium 139 mmol/L (136-145); Total Protein 7.6 g/dL (6.4-8.2)
[2024-06-05 19:23] LABS: CEA 88.9 ng/mL (See Note)
== END 2024-06-05 09:03 | disposition home or self-care (01) ==
LOC: LBO 09:02
PROVIDERS: PCP Family Medicine; Visit Provider Internal Medicine Hematology & Oncology
DX: C18.9 Malignant neoplasm of colon, unspecified (principal); C78.7 Secondary malignant neoplasm of liver and intrahepatic bile duct
CPT/HCPCS: 36415; 80053; 82378; 85025

== ENCOUNTER 2024-10-30 08:57 | Outpatient (CLI) | payer MEDICARE, MEDICAID, SELFPAY ==
[2024-10-30 08:59] LABS: Abs Immature Grans 0.04 10^3/uL (0.0-0.06); HCT 52.1 % (40.0-50.0); HGB 17.1 g/dL (13.5-17.5); Immature Grans % 0.4 %; MCH 29.0 pg (27.0-33.0); MCHC 32.8 % (32.0-36.0); MCV 89 fL (80-95); MPV 8.7 fL (8.0-11.0); Platelet Count 222 10^3/uL (130-400); RBC 5.89 10^6/uL (4.36-5.78); RDW 13.6 % (11.8-14.1); RDW-SD 43.9 fL; WBC 10.23 10^3/uL (4.4-10.8)
[2024-10-30 09:18] LABS: ALT 17 U/L (16-63); AST 18 U/L (15-37); Albumin 3.4 g/dL (3.4-5.0); Alkaline Phosphatase 203 U/L (46-116); Anion Gap 4.6 mmol/L (3-11); BUN 15 mg/dL (7-18); Bilirubin, Total 0.7 mg/dL (0.2-1.0); CO2 33.4 mmol/L (21.0-32.0); Calcium 9.3 mg/dL (8.5-10.1); Chloride 96 mmol/L (98-107); Estimated GFR 101.32 (mL/min/1.73m2); Glucose 212 mg/dL (74-106); Potassium 4.2 mmol/L (3.5-5.1); Sodium 134 mmol/L (136-145); Total Protein 8.3 g/dL (6.4-8.2)
== END 2024-10-30 08:58 | disposition home or self-care (01) ==
LOC: LBO 08:59
PROVIDERS: PCP Family Medicine; Visit Provider Internal Medicine Hematology & Oncology
DX: C18.9 Malignant neoplasm of colon, unspecified (principal)
CPT/HCPCS: 36415; 80053; 82378; 85025